=== PATIENT | female | born 1925 | race Caucasian/White ===

== ENCOUNTER 2016-03-27 11:03 | Inpatient (IN) | payer MEDICARE ==
[2016-03-27 11:43] LABS: HEMOGLOBIN 12.8 g/dL (12.0-15.5); HGB HCT DIFFERENCE -0.6; MEAN CORPUSCULAR HEMOGLOBIN 27.4 pg (27.0-33.4); MEAN CORPUSCULAR HGB CONC 32.8 g/dL (32.0-36.0); MEAN CORPUSCULAR VOLUME 84 fl (80-97); RED BLOOD COUNT 4.67 10^6/uL (3.72-5.28); RED CELL DISTRIBUTION WIDTH 15.4 % (11.5-14.0); WHITE BLOOD COUNT 16.9 10^3/uL (4.0-10.5)
[2016-03-27 11:46] LABS: PROTHROMBIN TIME 19.5 SEC (11.4-15.4)
[2016-03-27 11:51] LABS: APPEARANCE,URINE SLIGHTLY-CLOUDY; BILIRUBIN,URINE NEGATIVE (NEGATIVE); GLUCOSE, URINE NEGATIVE (NEGATIVE); KETONES,URINE NEGATIVE (NEGATIVE); LEUKOCYTE ESTERASE,URINE TRACE (NEGATIVE); NITRITE,URINE POSITIVE (NEGATIVE); PROTEIN,URINE 100 mg/dL (NEGATIVE); URINE SPECIFIC GRAVITY 1.008; UROBILINOGEN,URINE NEGATIVE mg/dL (<2.0)
[2016-03-27 11:52] LABS: ALANINE AMINOTRANSFERASE 44 U/L (9-52); ALBUMIN 3.5 g/dL (3.5-5.0); ALKALINE PHOSPHATASE 45 U/L (38-126); ANION GAP 15 (5-19); ASPARTATE AMINO TRANSFERASE 43 U/L (14-36); BILIRUBIN,TOTAL 0.7 mg/dL (0.2-1.3); BLOOD UREA NITROGEN 30 mg/dL (7-20); CALCIUM 8.5 mg/dL (8.4-10.2); CARBON DIOXIDE 27 mmol/L (22-30); CHLORIDE 98 mmol/L (98-107); GLUCOSE 181 mg/dL (75-110); POTASSIUM 3.5 mmol/L (3.6-5.0); SODIUM 140.2 mmol/L (137-145); TOTAL PROTEIN 7.2 g/dL (6.3-8.2)
[2016-03-27 12:14] LABS: BAND NEUTROPHILS % (MANUAL) 3 % (3-5); BASOPHILS % (MANUAL) 0 % (0-2); EOSINOPHILS % (MANUAL) 0 % (0-6); LYMPHOCYTES % (MANUAL) 1 % (13-45); TOTAL CELLS COUNTED 100
[2016-03-27 12:19] LABS: TOXIC VACUOLATION PRESENT
[2016-03-27 12:20] LABS: ANISOCYTOSIS SLIGHT; MICROCYTOSIS SLIGHT; POLYCHROMASIA SLIGHT; TOXIC GRANULATION SLIGHT
--- NOTE | 2016-03-27 12:26 | ER Document Report ---
[id number] TRAVEL OUTSIDE OF THE [place] IN LAST 30 DAYS: No - HPI Onset: Other - "Couple days ago" Associated symptoms: Other - See above <KIKA DISLA - Last Filed: 03/27/16 19:52> <CHELLY MCRAE - Last Filed: 04/11/16 23:46> - General Chief Complaint: Altered Mental Status Stated Complaint: ALTERED MENTAL Notes: 89-year-old female with history of 3L O2 dependent COPD, dementia, sleep apnea, pneumonia, A. fib(on Xarelto), and chronic back pain presents to the ED via EMS accompanied by her daughter who complains of the patient has been "sick" for the past "couple days." Daughter states that the patient is set up with assisted living and a home nurse comes to visit the patient. The nurse thought that the patient should go to the ED, however the patient states that she told the nurse that she did not want to come. Upon the examination, the daughter said that the patient looks diaphoretic. Patient denies falling, headache, any weight changes, chest pain, or shortness of breath. Daughter states that the patient gets the UTI 2-3 times a year. She also states that in 2013 the patient was admitted in [place] for a empyema. Patient's primary care provider is Dr. Capellan, outpatient program coordinator is Dr. Edwards, and pnemuologist is Dr. Barrow. (KIKA DISLA) - Related Data Allergies/Adverse Reactions: azithromycin [Azithromycin] Allergy (Verified 03/06/15 14:12) Home Medications: Current Home Medications Acetaminophen [Tylenol] 650 mg PO Q4HP PRN 03/27/16 [History] Albuterol Sulfate [Albuterol Sulfate 2.5mg/3 mL] 2.5 mg IH Q4HP PRN 03/27/16 [ History] Amiodarone HCl [Pacerone 100 mg Tablet] 100 mg PO QAM 03/27/16 [History] Amlodipine Besylate [Norvasc 5 mg Tablet] 5 mg PO DAILY 03/27/16 [History] Ascorbic Acid [Vitamin C 500 mg Tablet] 500 mg PO DAILY 03/27/16 [History] Cetirizine HCl [Zyrtec 10 mg Tablet] 10 mg PO DAILY 03/27/16 [History] Cholecalciferol (Vitamin D3) [Vitamin D3] 2,000 units PO DAILY 03/27/16 [History ] Digoxin [Digox] 125 mcg PO DAILY 03/27/16 [History] Fluticasone/Salmeterol [Advair 250-50 Diskus 14 Dose/Diskus] 1 puff IH Q12 03/27 [History] Guaifenesin/D-Methorphan Hb [Robitussin-Dm Syrup 10 ml Udcup] 10 ml PO Q4HP PRN 03/27/16 [History] Insulin Glargine,Hum.rec.anlog [Lantus Solostar] 10 units SQ QAM 03/27/16 [ History] Lisinopril [Prinivil 10 mg Tablet] 10 mg PO DAILY 03/27/16 [History] Metoprolol Succinate [Toprol Xl 50 mg Tab.sr] 50 mg PO DAILY 03/27/16 [History] Rivaroxaban [Xarelto 15 mg Tablet] 15 mg PO DAILY 03/27/16 [History] Sitagliptin Phos/Metformin HCl [Janumet Xr 100-1,000 mg Tablet] 1 each PO DAILY 03/27/16 [History] Tiotropium [place] [Spiriva Handihaler 5 Cap/Kit (18 Mcg/Cap)] 1 puff IH DAILY 03/27/16 [History] Torsemide [Demadex 20 mg Tablet] 20 mg PO DAILY 03/27/16 [History] Past Medical History - General Information source: Patient - Social History Smoking Status: Unknown if Ever Smoked Family History: Reviewed & Not Pertinent - Past Medical History Cardiac Medical History: Reports: Hx Atrial Fibrillation, Hx Congestive Heart Failure, Hx Hypercholesterolemia, Hx Hypertension Pulmonary Medical History: Reports: Hx Asthma, Hx Bronchitis, Hx COPD, Hx Pneumonia, Hx Sleep Apnea, Other - empyema in 2013 Endocrine Medical History: Reports: Hx Diabetes Mellitus Type 2 GI Medical History: Reports: Hx Gastroesophageal Reflux Disease Musculoskeltal Medical History: Reports Hx Arthritis Traumatic Medical History: Reports: Hx Fractures Past Surgical History: Reports: Hx Appendectomy, Hx Herniorrhaphy, Hx Hysterectomy, Hx Orthopedic Surgery - Immunizations Hx Diphtheria, Pertussis, Tetanus Vaccination: No Hx Pneumococcal Vaccination: 02/25/09 <KIKA DISLA - Last Filed: 03/27/16 19:52> Review of Systems - Review of Systems Constitutional: See HPI, Diaphoresis. denies: Weight gain, Weight loss EENT: No symptoms reported Cardiovascular: No symptoms reported. denies: Chest pain Respiratory: No symptoms reported. denies: Short of breath Gastrointestinal: No symptoms reported Genitourinary: No symptoms reported Female Genitourinary: No symptoms reported Musculoskeletal: No symptoms reported Skin: No symptoms reported Hematologic/Lymphatic: No symptoms reported Neurological/Psychological: No symptoms reported. denies: Headaches -: Yes All other systems reviewed and negative <KIKA DISLA - Last Filed: 03/27/16 19:52> Physical Exam - Vital signs Interpretation: Febrile - General General appearance: Alert In distress: None - HEENT Head: Normocephalic, Atraumatic Eyes: Normal Extraocular movements intact: Yes Pupils: PERRL - Respiratory Respiratory status: No respiratory distress Breath sounds: Rhonchi - Bilaterally. No: Normal, Wheezing - Cardiovascular Rhythm: Regular Heart sounds: Normal auscultation - Abdominal Inspection: Normal - Back Back: Normal - Extremities General upper extremity: Normal inspection, Normal ROM. No: Edema General lower extremity: Normal inspection, Normal ROM. No: Edema - Neurological Neuro grossly intact: Yes Cognition: Normal Orientation: AAOx4 Adrian Coma Scale Eye Opening: Spontaneous Adrian Coma Scale Verbal: Oriented Adrian Coma Scale Motor: Obeys Commands Adrian Coma Scale Total: 15 Speech: Normal - Psychological Associated symptoms: Normal affect, Normal mood - Skin Skin Temperature: Warm Skin Moisture: Dry Skin Color: Normal <KIKA DISLA - Last Filed: 03/27/16 19:52> Course - Laboratory Result Diagrams: 03/27/16 11:24 03/27/16 11:24 - Consults Colleen Totaling Time consulted: 13:30 <KIKA DISLA - Last Filed: 03/27/16 19:52> - Laboratory Result Diagrams: 04/05/16 06:04 04/05/16 06:04 <CHELLY MCRAE - Last Filed: 04/11/16 23:46> - Re-evaluation Re-evalutation: 03/27/16 13:33 I personally performed the services described in the documentation, reviewed and edited the documentation which was dictated to my scribe in my presence, and it accurately records my words and actions. Patient presents emergency department with altered mental status questionable urinary tract infection 91% on 2 L nasal cannula with a history of chronic COPD on 3 L nasal cannula at home. Going to the family she lives in assisted living independently but family members check in on her a dose and about mental status changes today. EMS gave her a gram of Tylenol for an elevated oral temperature rectally it's 103 here. On examination patient is a alert to self and place. Fever is improved after the Tylenol. On straight catheterization she has a slight urinary tract infection but has bilateral pneumonia on chest x-ray. Patient is given broad-spectrum IV antibiotics blood cultures lactic acid is normal at this point. Patient has allergies to some medications as well. Spoke with the hospitalist APC Colleen CASTRO who accepted the patient to the hospitalist service under Dr. mensah. Patient is stable currently no respiratory distress will be admitted to telemetry inpatient. 03/27/16 13:35 03/27/16 13:35 (CHELLY MCRAE) - Vital Signs Vital signs: Temp Pulse Resp BP Pulse Ox 97.2 F 56 L 18 131/52 H 92 04/05/16 07:22 04/05/16 07:22 04/05/16 07:22 04/05/16 07:22 04/05/16 07:22 (KIKA DISLA) (CHELLY MCRAE) - Laboratory Laboratory results interpreted by nc: 03/27/16 03/27/16 03/27/16 11:24 11:24 11:24 WBC 16.9 H RDW 15.4 H Seg Neuts % (Manual) 79 H Lymphocytes % (Manual) 1 L Monocytes % (Manual) 14 H Metamyelocytes % 1 H Abs Neuts (Manual) 14.0 H Abs Monocytes (Manual) 2.4 H PT 19.5 H Potassium 3.5 L BUN 30 H Est GFR (Non-Af Amer) 52 L Glucose 181 H POC Glucose AST 43 H Urine Protein Urine Blood Urine Nitrite Ur Leukocyte Esterase 03/27/16 03/27/16 11:31 11:34 WBC RDW Seg Neuts % (Manual) Lymphocytes % (Manual) Monocytes % (Manual) Metamyelocytes % Abs Neuts (Manual) Abs Monocytes (Manual) PT Potassium BUN Est GFR (Non-Af Amer) Glucose POC Glucose 194 H AST Urine Protein 100 H Urine Blood SMALL H Urine Nitrite POSITIVE H Ur Leukocyte Esterase TRACE H (KIKA DISLA) (CHELLY MCRAE) - EKG Interpretation by Me Additional EKG results interpreted by me: 03/27/16 13:35 EKG interpreted by myself with a sinus rhythm at [address] segment elevation or depression (CHELLY MCRAE) - Consults Colleen Beck Reason for consultation: 03/27/16 13:30 Patient was discussed with Colleen Beck and accepts the patient on behalf of Dr. Jose. (KIKA DISLA) Critical Care Note - Critical Care Note Total time excluding time spent on procedures (mins): 45 <CHELLY MCRAE - Last Filed: 04/11/16 23:46> Discharge <KIKA DISLA - Last Filed: 03/27/16 19:52> - Discharge Admitting Provider: Hospitalist Unit Admitted: Telemetry <CHELLY MCRAE - Last Filed: 04/11/16 23:46> - Discharge Clinical Impression: acute bilateral pneumonia, Acute UTI Condition: Stable Disposition: HOME-ASSISTED LIVING Scribe Documentation - Scribe Written by Scribe:: Chetan Ferraro, 03/27/2016, 13:54 acting as scribe for :: Obie <KIKA DISLA - Last Filed: 03/27/16 19:52>
[2016-03-27] MEDS ORDERED: CEFTRIAXONE INJ 1000 MG VIAL IV ONE (12:29)
[2016-03-27] MEDS ORDERED: VANCOMYCIN HCL INJ 1000 MG VIAL IV ONE (12:31)
[2016-03-27] MEDS ORDERED: NORMAL SALINE 1000 ML 500 ML IV ONE (12:32)
[2016-03-27] MEDS ORDERED: MAGNESIUM HYDROXIDE SUSP 30 ML UDCUP PO PRN (13:38)
[2016-03-27] MEDS ORDERED: ONDANSETRON HCL INJ/PF 4 MG/2 ML SDV IV PRN (13:38)
[2016-03-27] MEDS ORDERED: HEPARIN SOD (PORCINE) 5,000 UNIT/ML 1 ML SYRINGE SUBCUT SCH (14:00)
[2016-03-27] MEDS ORDERED: DEXTROSE 40% GEL 15 GM TUBE PO PRN ×2 (14:40)
[2016-03-27] MEDS ORDERED: DEXTROSE 50%-WATER 25 GM/50 ML DISP.SYRIN IV PRN ×2 (14:40)
[2016-03-27] MEDS ORDERED: GLUCAGON,HUMAN RECOMB 1 MG INJ IM PRN (14:40)
--- NOTE | 2016-03-27 14:42 | PDOC H&P ---
History of Present Illness Admission Date/PCP: 03/27/16 14:09 MYRIAM OCHOA MD Patient complains of: Altered mental status, fever History of Present Illness: FAUSTINO SHARIF is a 89 year old female who is a resident of [facility]. She was noted to be confused and febrile by family. She was evaluated by nursing and referred to [facility] ER. The ER she was found to have a rectal temperature of 103.2. She has been pancultured, and started on IV broad-spectrum antibiotics. She was found to be mildly hypotensive, and tachycardic. She was given IV fluid bolus. Blood pressure and heart rate have both improved. She is presently awake, alert, and oriented. She is complain also of some severe sore throat, and mildly congested cough. She states the symptoms having been ongoing for last 3 days. She denies any other complaints at the present time. She was found to have positive nitrates in her urinalysis. Her daughter states she does have a history of frequent urinary tract infections. Her daughter, is at bedside. She is patient's medical power of senior trial attorney. She states that patient does have a written out of hospital DO NOT RESUSCITATE order. Past Medical History Cardiac Medical History: Reports: Atrial Fibrillation, Congestive Heart Failure , Hyperlipidema, Hypertension Pulmonary Medical History: Reports: Asthma, Bronchitis, Chronic Obstructive Pulmonary Disease (COPD), Pneumonia, Sleep Apnea, Other - empyema in 2013 EENT Medical History: Reports: None Neurological Medical History: Reports: None Endocrine Medical History: Reports: Diabetes Mellitus Type 2 Renal/ Medical History: Reports: None Malignancy Medical History: Reports: None GI Medical History: Reports: Gastroesophageal Reflux Disease Musculoskeltal Medical History: Reports: Arthritis Psychiatric Medical History: Reports: None Traumatic Medical History: Reports: None Hematology: Denies: Anemia, Hemophilia, Sickle Cell Disease Infectious Medical History: Reports: None Past Surgical History Past Surgical History: Reports: Appendectomy, Herniorrhaphy, Hysterectomy, Orthopedic Surgery Denies: Amputation Social History Information Source: Patient, Relative, POA - 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 Lives with: Senior Living Smoking Status: Former Smoker Number of Years Smokin Frequency of Alcohol Use: None Hx Recreational Drug Use: No Hx Prescription Drug Abuse: No - Advance Directive Resuscitation Status: Do Not Resuscitate Family History Family History: Hyperlipidemia, Hypertension Parental Family History Reviewed: Yes Children Family History Reviewed: Yes Sibling(s) Family History Reviewed.: Yes Medication/Allergy Home Medications: Acetaminophen [Tylenol] 650 mg PO Q4H PRN 11/28/14 Albuterol Sulfate [Albuterol Sulfate 2.5mg/3 mL] 1 vial IH Q6H PRN 11/28/14 Amiodarone HCl 100 mg PO DAILY 11/28/14 Ascorbic Acid [Vitamin C 500 mg Tablet] 500 mg PO DAILY 11/28/14 Cetirizine HCl [Zyrtec 10 mg Tablet] 1 tab PO QHS 11/28/14 Digoxin [Digox] 125 mcg PO DAILY 11/28/14 Fluticasone/Salmeterol [Advair 250-50 Diskus 14 Dose/Diskus] 1 puff IH BID 11/28 Lisinopril 10 mg PO DAILY 11/28/14 Metoprolol Succinate 50 mg PO DAILY 11/28/14 Polyethylene Glycol 3350 [Miralax Powder 17 gm/Packet] 1 packet PO DAILY Tiotropium [place] [Spiriva Handihaler 18 mcg/dose (30 Dose)] 1 cap IH DAILY 06/09 Torsemide [Demadex 10 mg Tablet] 10 mg PO DAILY 11/28/14 Amlodipine Besylate [Norvasc 5 mg Tablet] 5 mg PO DAILY 03/06/15 Hypromellose [Genteal] 1 applic OP QHS PRN 03/06/15 Rivaroxaban [Xarelto 15 mg Tablet] 15 mg PO DAILY 03/06/15 Sitagliptin Phos/Metformin HCl [Janumet Xr 100-1,000 mg Tablet] 1 each PO DAILY 03/06/15 Starch [Anusol] 1 each RC ASDIR PRN 03/06/15 Cholecalciferol (Vitamin D3) [Vitamin D3 2000 unit Tablet] 2,000 unit PO DAILY 10/03/15 Insulin Glargine,Hum.rec.anlog [Lantus] 10 unit SQ DAILY 10/03/15 Doxycycline Hyclate 100 mg PO BID #9 capsule 10/06/15 Allergies/Adverse Reactions: azithromycin [Azithromycin] Allergy (Verified 03/06/15 14:12) Review of Systems Constitutional: PRESENT: chills, fever(s) Eyes: ABSENT: visual disturbances Nose, Mouth, and Throat: PRESENT: mouth pain, sore throat Cardiovascular: ABSENT: chest pain, dyspnea on exertion, edema, orthropnea, palpitations Respiratory: PRESENT: cough, sputum Gastrointestinal: ABSENT: abdominal pain, constipation, diarrhea, hematemesis, hematochezia, nausea, vomiting Genitourinary: PRESENT: dysuria Musculoskeletal: ABSENT: joint swelling Integumentary: ABSENT: rash, wounds Neurological: ABSENT: abnormal gait, abnormal speech, confusion, dizziness, focal weakness, syncope Psychiatric: PRESENT: as per HPI Endocrine: ABSENT: cold intolerance, heat intolerance, polydipsia, polyuria Hematologic/Lymphatic: ABSENT: easy bleeding, easy bruising Physical Exam Vital Signs: Temp Pulse Resp BP Pulse Ox 103.5 F H 23 H 100/44 L 91 L 03/27/16 11:43 03/27/16 14:01 03/27/16 14:01 03/27/16 14:01 General appearance: PRESENT: no acute distress, obese Head exam: PRESENT: atraumatic, normocephalic Eye exam: PRESENT: conjunctiva pink, EOMI, PERRLA. ABSENT: scleral icterus Ear exam: PRESENT: normal external ear exam Mouth exam: PRESENT: moist, tongue midline Neck exam: ABSENT: carotid bruit, JVD, lymphadenopathy, thyromegaly Respiratory exam: PRESENT: decreased breath sounds, rhonchi, symmetrical, unlabored Cardiovascular exam: PRESENT: RRR. ABSENT: diastolic murmur, rubs, systolic murmur Pulses: PRESENT: normal dorsalis pedis pul Vascular exam: PRESENT: normal capillary refill GI/Abdominal exam: PRESENT: normal bowel sounds, soft. ABSENT: distended, guarding, mass, organolmegaly, rebound, tenderness Rectal exam: PRESENT: deferred Extremities exam: PRESENT: full ROM. ABSENT: calf tenderness, clubbing, pedal edema Neurological exam: PRESENT: alert, awake, oriented to person, oriented to place , CN II-XII grossly intact. ABSENT: motor sensory deficit Psychiatric exam: PRESENT: appropriate affect, normal mood Skin exam: PRESENT: dry, intact, warm. ABSENT: cyanosis, rash Results Impressions: Chest X-Ray 03/27/16 00:00 IMPRESSION: Patchy bibasilar infiltrate/atelectatic markings. Assessment & Plan - Diagnosis (1) Altered mental status Qualifiers: Altered mental status type: disorientation Qualified Code(s): R41.0 - Disorientation, unspecified Is this a current diagnosis for this admission?: YesPlan: Most likely secondary to UTI, possible pneumonia, and dehyrdation (2) Acute UTI Is this a current diagnosis for this admission?: YesPlan: Will obtain urine culture and blood cultures. Cover with empiric broad spectrum (3) Pneumonia Qualifiers: Pneumonia type: due to unspecified organism Laterality: bilateral Lung location: lower lobe of lung Qualified Code(s): J18.9 - Pneumonia, unspecified organism Is this a current diagnosis for this admission?: Yes (4) COPD (chronic obstructive pulmonary disease) Qualifiers: Emphysema type: unspecified Is this a current diagnosis for this admission?: YesPlan: Continue inhalers, prn, nebulizer, treatments (5) Paroxysmal a-fib Is this a current diagnosis for this admission?: YesPlan: Presently sinus rhythm on amiodarone and xarelto (6) Essential (primary) hypertension Is this a current diagnosis for this admission?: YesPlan: Presently borderline hypotensive will hold medications and monitor. (7) DMII (diabetes mellitus, type 2) Qualifiers: Diabetes mellitus complication status: without complication Diabetes mellitus jail insulin use: with jail use Qualified Code(s): E11.9 - Type 2 diabetes mellitus without complications; Z79.4 - long term care administrator ( current) use of insulin Is this a current diagnosis for this admission?: YesPlan: Continue current medications and sliding scale coverage (8) DVT prophylaxis Is this a current diagnosis for this admission?: YesPlan: On Xarelto - Time Time Spent: 50 to 70 Minutes Critical Time spent with patient: 25-34 minutes Medications reviewed and adjusted accordingly: Yes Anticipated discharge: SNF - Inpatient Certification Based on my medical assessment, after consideration of the patient's comorbidities, presenting symptoms, or acuity I expect that the services needed warrant INPATIENT care.: Yes I certify that my determination is in accordance with my understanding of Medicare's requirements for reasonable and necessary INPATIENT services [42 CFR 412.3e].: Yes Medical Necessity: Need For IV Fluids, Need for IV Antibiotics, Risk of Complication if Not Cared For in Hospital
[2016-03-27] MEDS ORDERED: AMIODARONE HCL 200 MG TABLET PO ONE (15:30)
[2016-03-27 15:53] LABS: VENOUS BLOOD BASE EXCESS -0.8 mmol/L; VENOUS BLOOD HCO3 26.1 mmol/L (20-32); VENOUS BLOOD PCO2 52.4 mmHg (35-63); VENOUS BLOOD PH 7.32 (7.30-7.42)
[2016-03-27] MEDS: DOCUSATE SODIUM 100 MG CAPSULE PO SCH (17:35)
[2016-03-27] MEDS: PIPERACILLIN SODIUM/TAZOBACTAM 3.375 GM in NORMAL SALINE 100 ML IV SCH (17:53)
[2016-03-27] MEDS: NORMAL SALINE 1000 ML 1,000 ML IV PRN (17:54)
[2016-03-27] MEDS: INSULIN LISPRO 100 UNIT/ML 3 ML VIAL SUBCUT PRN (17:55)
[2016-03-27] MEDS: FLUTICASONE/SALMETEROL DISKUS 250-50 MCG/DOSE IH SCH (17:57)
[2016-03-27] MEDS: ACETAMINOPHEN 325 MG TABLET PO PRN (20:45)
[2016-03-27] MEDS ORDERED: RIVAROXABAN 15 MG TABLET PO ONE (21:11)
[2016-03-27] MEDS ORDERED: PIPERACILLIN/TAZOBACTAM 3.375 GM VIAL IV ONE (23:36)
[2016-03-28] MEDS ORDERED: NORMAL SALINE 1000 ML 1,000 ML IV ONE (01:00)
[2016-03-28] MEDS: PIPERACILLIN SODIUM/TAZOBACTAM 3.375 GM in NORMAL SALINE 100 ML IV SCH ×4 (01:50→17:25)
[2016-03-28] MEDS: IPRATROPIUM/ALBUTEROL 0.5-2.5 MG/3 ML AMPUL NEB PRN ×2 (01:55→10:21)
[2016-03-28 04:45] LABS: ABSOLUTE BASOPHILS # (AUTO) 0.1 10^3/uL (0.0-0.2); ABSOLUTE LYMPHOCYTES (AUTO) 1.1 10^3/uL (0.5-4.7); ABSOLUTE NEUT (AUTO) 14.9 10^3/uL (1.7-8.2); BASOPHILS % (AUTO) 0.8 % (0-2); HEMOGLOBIN 12.8 g/dL (12.0-15.5); HGB HCT DIFFERENCE -1.6; LYMPHOCYTES % (AUTO) 5.9 % (13-45); MEAN CORPUSCULAR HEMOGLOBIN 27.4 pg (27.0-33.4); MEAN CORPUSCULAR VOLUME 86 fl (80-97); RED BLOOD COUNT 4.67 10^6/uL (3.72-5.28); RED CELL DISTRIBUTION WIDTH 15.9 % (11.5-14.0); SEGMENTED NEUTROPHILS % (AUTO) 82.3 % (42-78)
[2016-03-28 05:11] LABS: ANION GAP 17 (5-19); BLOOD UREA NITROGEN 33 mg/dL (7-20); CARBON DIOXIDE 25 mmol/L (22-30); CHLORIDE 103 mmol/L (98-107); CREATININE RESULT 1.14 mg/dL (0.52-1.25); GLUCOSE 141 mg/dL (75-110); MAGNESIUM 1.7 mg/dL (1.6-2.3); POTASSIUM 3.5 mmol/L (3.6-5.0); SODIUM 144.5 mmol/L (137-145)
[2016-03-28] MEDS ORDERED: PIPERACILLIN/TAZOBACTAM 3.375 GM VIAL IV ONE (06:09)
--- NOTE | 2016-03-28 09:24 | EKG REPORT ---
SEVERITY:- ABNORMAL ECG - SINUS RHYTHM REPOL ABNRM SUGGESTS ISCHEMIA, DIFFUSE LEADS : Confirmed by: Karissa Hough 28-Mar-2016 09:23:42
[2016-03-28] MEDS ORDERED: RIVAROXABAN 15 MG TABLET PO SCH (10:00)
[2016-03-28] MEDS: INSULIN GLARGINE,HUM.REC.ANLOG 300 UNIT/3 ML INSULN.PEN SUBCUT SCH (10:21)
[2016-03-28] MEDS: DIGOXIN 0.125 MG TABLET PO SCH (10:25)
[2016-03-28] MEDS: AMIODARONE HCL 200 MG TABLET PO SCH (10:26)
[2016-03-28] MEDS: CHOLECALCIFEROL (D3) 1,000 UNIT TABLET PO SCH (10:26)
[2016-03-28] MEDS: FLUTICASONE/SALMETEROL DISKUS 250-50 MCG/DOSE IH SCH ×2 (10:27→17:25)
[2016-03-28] MEDS: TIOTROPIUM BROMIDE DPI 5 CAP/KIT (18 MCG/CAP) IH SCH (10:27)
[2016-03-28] MEDS: DOCUSATE SODIUM 100 MG CAPSULE PO SCH ×2 (10:33→17:15)
[2016-03-28] MEDS: METOPROLOL SUCCINATE 50 MG TAB.SR.24H PO SCH (10:33)
[2016-03-28] MEDS: IPRATROPIUM/ALBUTEROL 0.5-2.5 MG/3 ML AMPUL NEB SCH ×2 (14:06→20:23)
[2016-03-28] MEDS: INSULIN LISPRO 100 UNIT/ML 3 ML VIAL SUBCUT PRN ×2 (17:21→21:26)
[2016-03-28] MEDS: SITAGLIPTIN PHOSPHATE 50 MG TABLET PO SCH (17:24)
[2016-03-28] MEDS: METFORMIN HCL 500 MG TABLET PO SCH (17:24)
[2016-03-28] MEDS: GUAIFENESIN 600 MG TABLET.SA PO SCH (20:57)
[2016-03-28] MEDS: RIVAROXABAN 15 MG TABLET PO SCH (20:58)
[2016-03-28] MEDS: ACETAMINOPHEN 325 MG TABLET PO PRN (21:26)
[2016-03-28] MEDS: NORMAL SALINE 1000 ML 1,000 ML IV PRN (21:27)
[2016-03-29] MEDS: PIPERACILLIN SODIUM/TAZOBACTAM 3.375 GM in NORMAL SALINE 100 ML IV SCH ×4 (00:58→17:14)
[2016-03-29 05:03] LABS: ABSOLUTE LYMPHOCYTES (AUTO) 0.9 10^3/uL (0.5-4.7); ABSOLUTE MONOCYTES (AUTO) 1.3 10^3/uL (0.1-1.4); ABSOLUTE NEUT (AUTO) 8.1 10^3/uL (1.7-8.2); BASOPHILS % (AUTO) 0.3 % (0-2); EOSINOPHILS % (AUTO) 0.3 % (0-6); HEMATOCRIT 34.5 % (36.0-47.0); HEMOGLOBIN 11.2 g/dL (12.0-15.5); HGB HCT DIFFERENCE -0.9; LYMPHOCYTES % (AUTO) 8.7 % (13-45); MEAN CORPUSCULAR HEMOGLOBIN 27.5 pg (27.0-33.4); MEAN CORPUSCULAR HGB CONC 32.6 g/dL (32.0-36.0); MEAN CORPUSCULAR VOLUME 84 fl (80-97); MONOCYTES % (AUTO) 12.5 % (3-13); RED BLOOD COUNT 4.09 10^6/uL (3.72-5.28); RED CELL DISTRIBUTION WIDTH 15.4 % (11.5-14.0); SEGMENTED NEUTROPHILS % (AUTO) 78.2 % (42-78); WHITE BLOOD COUNT 10.4 10^3/uL (4.0-10.5)
[2016-03-29 05:19] LABS: ANION GAP 13 (5-19); BLOOD UREA NITROGEN 25 mg/dL (7-20); CALCIUM 7.8 mg/dL (8.4-10.2); CARBON DIOXIDE 24 mmol/L (22-30); CHLORIDE 106 mmol/L (98-107); CREATININE RESULT 0.97 mg/dL (0.52-1.25); GLUCOSE 89 mg/dL (75-110); POTASSIUM 3.3 mmol/L (3.6-5.0)
[2016-03-29] MEDS: NORMAL SALINE 1000 ML 1,000 ML IV PRN (08:20)
[2016-03-29] MEDS ORDERED: POTASSIUM CHLORIDE 10 MEQ TABLET.SA PO ONE (08:45)
[2016-03-29] MEDS: IPRATROPIUM/ALBUTEROL 0.5-2.5 MG/3 ML AMPUL NEB SCH ×3 (08:58→19:41)
[2016-03-29] MEDS: INSULIN GLARGINE,HUM.REC.ANLOG 300 UNIT/3 ML INSULN.PEN SUBCUT SCH (09:23)
[2016-03-29] MEDS: ACETAMINOPHEN 325 MG TABLET PO PRN ×2 (09:25→19:39)
[2016-03-29] MEDS: SITAGLIPTIN PHOSPHATE 50 MG TABLET PO SCH ×2 (09:26→17:14)
[2016-03-29] MEDS: CHOLECALCIFEROL (D3) 1,000 UNIT TABLET PO SCH (09:26)
[2016-03-29] MEDS: DIGOXIN 0.125 MG TABLET PO SCH (09:26)
[2016-03-29] MEDS: METOPROLOL SUCCINATE 50 MG TAB.SR.24H PO SCH (09:27)
[2016-03-29] MEDS: AMIODARONE HCL 200 MG TABLET PO SCH (09:27)
[2016-03-29] MEDS: GUAIFENESIN 600 MG TABLET.SA PO SCH ×2 (09:28→22:23)
[2016-03-29] MEDS: METFORMIN HCL 500 MG TABLET PO SCH ×2 (09:28→17:14)
[2016-03-29] MEDS: TORSEMIDE 20 MG TABLET PO SCH (09:29)
[2016-03-29] MEDS: TIOTROPIUM BROMIDE DPI 5 CAP/KIT (18 MCG/CAP) IH SCH (09:29)
[2016-03-29] MEDS: FLUTICASONE/SALMETEROL DISKUS 250-50 MCG/DOSE IH SCH ×3 (09:29→22:23)
[2016-03-29] MEDS: DOCUSATE SODIUM 100 MG CAPSULE PO SCH ×2 (09:30→17:11)
[2016-03-29] MEDS: CETIRIZINE 10 MG TABLET PO SCH (09:47)
[2016-03-29] MEDS ORDERED: GUAIFENESIN/CODEINE PHOS 100-10 MG/ 5 ML UDC PO PRN (09:48)
[2016-03-29] MEDS ORDERED: DIGOXIN 0.125 MG TABLET PO SCH (10:00)
[2016-03-29] MEDS ORDERED: (PENDING PHARMACY ID) (Sitagliptin Phos/Metformin Hcl [Janumet Xr 100-1,000 Mg Tablet] 1 E PO SCH (10:00)
--- NOTE | 2016-03-29 11:11 | PDOC PROGRESS REPORT ---
Subjective Progress Note for:: 03/28/16 Subjective:: Patient is seen on morning rounds. She is sitting out of bed in bedside chair eating breakfast. Her daughter is at the bedside. She states her cough is somewhat better this morning. She is now coughing and producing thick green sputum. She is no longer confused. She denies dyspnea, chest pain or dizziness. She denies nausea, vomiting, abdominal pain or diarrhea. She denies dysuria. She denies any back pain or musculoskeletal pain. Rest of review of systems are negative. Physical Exam Vital Signs: Temp Pulse Resp BP Pulse Ox 98.2 F 72 18 158/60 H 95 03/29/16 07:48 03/29/16 08:58 03/29/16 08:58 03/29/16 07:48 03/29/16 08:58 Intake & Output 03/28/16 03/29/16 03/30/16 06:59 06:59 06:59 Intake Total 1621 4783 Output Total 200 350 Balance 1421 4433 Weight 92.7 kg 93 kg General appearance: PRESENT: no acute distress, well-developed, well-nourished Head exam: PRESENT: atraumatic, normocephalic Eye exam: PRESENT: conjunctiva pink, EOMI, PERRLA. ABSENT: scleral icterus Ear exam: PRESENT: normal external ear exam Mouth exam: PRESENT: moist, tongue midline Neck exam: ABSENT: carotid bruit, JVD, lymphadenopathy, thyromegaly Respiratory exam: PRESENT: crackles, symmetrical, unlabored - right base Cardiovascular exam: PRESENT: RRR. ABSENT: diastolic murmur, rubs, systolic murmur Pulses: PRESENT: normal dorsalis pedis pul Vascular exam: PRESENT: normal capillary refill GI/Abdominal exam: PRESENT: normal bowel sounds, soft. ABSENT: distended, guarding, mass, organolmegaly, rebound, tenderness Rectal exam: PRESENT: deferred Extremities exam: PRESENT: full ROM. ABSENT: calf tenderness, clubbing, pedal edema Musculoskeletal exam: PRESENT: full ROM, normal inspection Neurological exam: PRESENT: alert, awake, oriented to person, oriented to place , oriented to time, oriented to situation, CN II-XII grossly intact. ABSENT: motor sensory deficit Psychiatric exam: PRESENT: appropriate affect, normal mood. ABSENT: homicidal ideation, suicidal ideation Skin exam: PRESENT: dry, intact, warm. ABSENT: cyanosis, rash Results Laboratory Results: 03/29/16 04:28 03/29/16 04:28 03/29/16 03/29/16 04:28 04:28 WBC 10.4 RBC 4.09 Hgb 11.2 L Hct 34.5 L MCV 84 MCH 27.5 MCHC 32.6 RDW 15.4 H Plt Count 143 L Seg Neutrophils % 78.2 H Lymphocytes % 8.7 L Monocytes % 12.5 Eosinophils % 0.3 Basophils % 0.3 Absolute Neutrophils 8.1 Absolute Lymphocytes 0.9 Absolute Monocytes 1.3 Absolute Eosinophils 0.0 Absolute Basophils 0.0 Sodium 143.0 Potassium 3.3 L Chloride 106 Carbon Dioxide 24 Anion Gap 13 BUN 25 H Creatinine 0.97 Est GFR ( Amer) > 60 Est GFR (Non-Af Amer) 54 L Glucose 89 Calcium 7.8 L Impressions: Chest X-Ray 03/27/16 00:00 IMPRESSION: Patchy bibasilar infiltrate/atelectatic markings. Assessment & Plan - Diagnosis (1) Altered mental status Qualifiers: Altered mental status type: disorientation Qualified Code(s): R41.0 - Disorientation, unspecified Is this a current diagnosis for this admission?: YesPlan: Most likely secondary to UTI, possible pneumonia, and dehyrdation (2) Acute UTI Is this a current diagnosis for this admission?: YesPlan: Will obtain urine culture and blood cultures. Cover with empiric broad spectrum (3) Pneumonia Qualifiers: Pneumonia type: due to unspecified organism Laterality: bilateral Lung location: lower lobe of lung Qualified Code(s): J18.9 - Pneumonia, unspecified organism Is this a current diagnosis for this admission?: Yes (4) COPD (chronic obstructive pulmonary disease) Qualifiers: Emphysema type: unspecified Is this a current diagnosis for this admission?: YesPlan: Continue inhalers, prn, nebulizer, treatments (5) Paroxysmal a-fib Is this a current diagnosis for this admission?: YesPlan: Presently sinus rhythm on amiodarone and xarelto (6) Essential (primary) hypertension Is this a current diagnosis for this admission?: YesPlan: Presently borderline hypotensive will hold medications and monitor. 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 Patient received 1 liters of IV normal saline overnight due to borderline hypotension. Normotensive today, will continue gentle rehydration today, BUN/Cr towards normal. Hold torsemide for today - Time Time Spent with patient: 25-34 minutes Critical Time spent with patient: 15-24 minutes Medications reviewed and adjusted accordingly: Yes Anticipated discharge: SNF
--- NOTE | 2016-03-29 11:25 | PDOC PROGRESS REPORT ---
Subjective Progress Note for:: 03/29/16 Subjective:: Patient is seen on morning rounds. She is sitting on the side of bed. Her daughter is at the bedside. She states her cough was somewhat worse overnight. She is now coughing and producing thick green sputum. She complains of mild left rib pain due to coughing. She denies dyspnea, chest pain or dizziness. She denies nausea, vomiting, abdominal pain or diarrhea. She denies dysuria. She denies any back pain or musculoskeletal pain. Rest of review of systems are negative. Physical Exam Vital Signs: Temp Pulse Resp BP Pulse Ox 98.2 F 72 18 158/60 H 95 03/29/16 07:48 03/29/16 08:58 03/29/16 08:58 03/29/16 07:48 03/29/16 08:58 Intake & Output 03/28/16 03/29/16 03/30/16 06:59 06:59 06:59 Intake Total 1621 4783 Output Total 200 350 Balance 1421 4433 Weight 92.7 kg 93 kg General appearance: PRESENT: no acute distress, obese, well-developed, well- nourished Head exam: PRESENT: atraumatic, normocephalic Eye exam: PRESENT: conjunctiva pink, EOMI, PERRLA. ABSENT: scleral icterus Ear exam: PRESENT: normal external ear exam Mouth exam: PRESENT: moist, tongue midline Neck exam: ABSENT: carotid bruit, JVD, lymphadenopathy, thyromegaly Respiratory exam: PRESENT: decreased breath sounds - right base. ABSENT: rales , rhonchi, wheezes Cardiovascular exam: PRESENT: RRR. ABSENT: diastolic murmur, rubs, systolic murmur Vascular exam: PRESENT: normal capillary refill GI/Abdominal exam: PRESENT: normal bowel sounds, soft. ABSENT: distended, guarding, mass, organolmegaly, rebound, tenderness Rectal exam: PRESENT: deferred Extremities exam: PRESENT: full ROM. ABSENT: calf tenderness, clubbing, pedal edema Neurological exam: PRESENT: alert, awake, oriented to person, oriented to place , oriented to time, oriented to situation, CN II-XII grossly intact. ABSENT: motor sensory deficit Psychiatric exam: PRESENT: appropriate affect, normal mood. ABSENT: homicidal ideation, suicidal ideation Skin exam: PRESENT: dry, intact, warm. ABSENT: cyanosis, rash Results Laboratory Results: 03/29/16 04:28 03/29/16 04:28 03/29/16 03/29/16 04:28 04:28 WBC 10.4 RBC 4.09 Hgb 11.2 L Hct 34.5 L MCV 84 MCH 27.5 MCHC 32.6 RDW 15.4 H Plt Count 143 L Seg Neutrophils % 78.2 H Lymphocytes % 8.7 L Monocytes % 12.5 Eosinophils % 0.3 Basophils % 0.3 Absolute Neutrophils 8.1 Absolute Lymphocytes 0.9 Absolute Monocytes 1.3 Absolute Eosinophils 0.0 Absolute Basophils 0.0 Sodium 143.0 Potassium 3.3 L Chloride 106 Carbon Dioxide 24 Anion Gap 13 BUN 25 H Creatinine 0.97 Est GFR ( Amer) > 60 Est GFR (Non-Af Amer) 54 L Glucose 89 Calcium 7.8 L Impressions: Chest X-Ray 03/27/16 00:00 IMPRESSION: Patchy bibasilar infiltrate/atelectatic markings. Assessment & Plan - Diagnosis (1) Altered mental status Qualifiers: Altered mental status type: disorientation Qualified Code(s): R41.0 - Disorientation, unspecified Is this a current diagnosis for this admission?: YesPlan: Most likely secondary to UTI, possible pneumonia, and dehyrdation. This has resolved to baseline (2) Acute UTI Is this a current diagnosis for this admission?: YesPlan: Will obtain urine culture and blood cultures. Cover with empiric broad spectrum (3) Pneumonia Qualifiers: Pneumonia type: due to unspecified organism Laterality: bilateral Lung location: lower lobe of lung Qualified Code(s): J18.9 - Pneumonia, unspecified organism Is this a current diagnosis for this admission?: YesPlan: Continue IV antibiotics for one more day. Sputum culture shows H influenzae.Patient is afebrile, normotensive, saturating at 96% on 2l/min (4) COPD (chronic obstructive pulmonary disease) Qualifiers: Emphysema type: unspecified Is this a current diagnosis for this admission?: YesPlan: Continue inhalers, prn, nebulizer, treatments (5) Paroxysmal a-fib Is this a current diagnosis for this admission?: YesPlan: Presently sinus rhythm on amiodarone and xarelto (6) Essential (primary) hypertension Is this a current diagnosis for this admission?: YesPlan: Presently borderline hypotensive will hold medications and monitor. 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 Patient received 1 liters of IV normal saline overnight due to borderline hypotension. Normotensive today, will continue gentle rehydration today, BUN/Cr towards normal. Hold torsemide for today - Time Time Spent with patient: 25-34 minutes Critical Time spent with patient: 15-24 minutes Medications reviewed and adjusted accordingly: Yes Anticipated discharge: SNF
[2016-03-29] MEDS ORDERED: GUAIFENESIN SYRP 200 MG/10 ML UDC PO PRN (12:24)
[2016-03-29] MEDS: INSULIN LISPRO 100 UNIT/ML 3 ML VIAL SUBCUT PRN (12:25)
[2016-03-29] MEDS: AMLODIPINE BESYLATE 5 MG TABLET PO SCH (12:28)
[2016-03-29] MEDS: RIVAROXABAN 15 MG TABLET PO SCH (22:23)
[2016-03-30] MEDS: PIPERACILLIN SODIUM/TAZOBACTAM 3.375 GM in NORMAL SALINE 100 ML IV SCH ×4 (00:35→17:35)
[2016-03-30] MEDS: ACETAMINOPHEN 325 MG TABLET PO PRN (03:05)
[2016-03-30] MEDS: IPRATROPIUM/ALBUTEROL 0.5-2.5 MG/3 ML AMPUL NEB PRN ×2 (04:06→21:28)
[2016-03-30 05:15] LABS: ARTERIAL BLOOD BASE EXCESS -7.1 mmol/L; ARTERIAL BLOOD O2 SATURATION 91.2 % (94-98)
[2016-03-30] MEDS ORDERED: FUROSEMIDE INJ/PF 40 MG/4 ML SDV ONE (05:16)
[2016-03-30 07:11] LABS: HEMATOCRIT 37.4 % (36.0-47.0); HGB HCT DIFFERENCE -1.4; MEAN CORPUSCULAR HEMOGLOBIN 27.3 pg (27.0-33.4); MEAN CORPUSCULAR HGB CONC 32.2 g/dL (32.0-36.0); MEAN CORPUSCULAR VOLUME 85 fl (80-97); RED BLOOD COUNT 4.41 10^6/uL (3.72-5.28); WHITE BLOOD COUNT 11.1 10^3/uL (4.0-10.5)
[2016-03-30 07:21] LABS: ANION GAP 12 (5-19); BLOOD UREA NITROGEN 23 mg/dL (7-20); CALCIUM 8.2 mg/dL (8.4-10.2); CARBON DIOXIDE 25 mmol/L (22-30); CHLORIDE 110 mmol/L (98-107); CREATININE RESULT 0.92 mg/dL (0.52-1.25); GLUCOSE 158 mg/dL (75-110); SODIUM 147.1 mmol/L (137-145)
[2016-03-30] MEDS ORDERED: FUROSEMIDE INJ/PF 40 MG/4 ML SDV IV ONE (07:22)
[2016-03-30] MEDS ORDERED: VANCOMYCIN HCL 0 MG in DEXTROSE 5%-WATER 250 ML IV NR (07:30)
[2016-03-30 07:34] LABS: BASOPHILS % (MANUAL) 0 % (0-2); EOSINOPHILS % (MANUAL) 0 % (0-6); LYMPHOCYTES % (MANUAL) 2 % (13-45); TOTAL CELLS COUNTED 100
[2016-03-30 07:36] LABS: ANISOCYTOSIS SLIGHT; TOXIC GRANULATION SLIGHT
[2016-03-30] MEDS ORDERED: (PENDING PHARMACY ID) (Amiodarone Hcl [Pacerone 100 Mg Tablet] 100 MG) PO SCH (08:00)
[2016-03-30 08:17] LABS: ARTERIAL BLOOD O2 SATURATION 90.6 % (94-98)
--- NOTE | 2016-03-30 08:35 | PDOC PROGRESS REPORT ---
Subjective Progress Note for:: 03/30/16 Subjective:: Overnight, patient had decompensation with respiratory acidosis requiring BiPAP administration. Currently, patient is examined while on BiPAP. Her family is present at bedside. Patient reports she's feeling significantly better. She does not want the BiPAP any longer. Physical Exam Vital Signs: Temp Pulse Resp BP Pulse Ox 98.4 F 74 33 H 178/78 H 93 03/30/16 04:00 03/30/16 04:00 03/30/16 04:56 03/30/16 04:00 03/30/16 08:11 Intake & Output 03/29/16 03/30/16 03/31/16 06:59 06:59 06:59 Intake Total 4783 1375 Output Total 350 Balance 4433 1375 Weight 93 kg 93 kg Exam: General: Awake alert and oriented x4, mild respiratory distress HEENT: AT/NC, PERRL, EOMI, oropharynx is dry, pink, no scleral icterus, no conjunctival injection Neck: No JVD, trachea midline Chest: Clear to auscultation bilaterally, no wheezes rhonchi or rales; diminished bilateral bases CV: Regular rate and rhythm, normal S1 and S2, no murmur, rub, or gallop Abdomen: Soft, nontender to palpation, mildly distended and tympanic, active bowel sounds; no rebound, rigidity, or guarding Extremities: No cyanosis, clubbing or edema Neuro: Cranial nerves II through XII are grossly intact without focal deficits; awake alert and oriented x4 Psych: Normal mood and affect Results Laboratory Results: 03/30/16 06:43 03/30/16 06:43 03/30/16 03/30/16 03/30/16 04:55 06:43 06:43 WBC 11.1 H RBC 4.41 Hgb 12.0 Hct 37.4 MCV 85 MCH 27.3 MCHC 32.2 RDW 16.0 H Plt Count 162 Seg Neutrophils % Not Reportable Lymphocytes % Not Reportable Monocytes % Not Reportable Eosinophils % Not Reportable Basophils % Not Reportable Absolute Neutrophils Not Reportable Absolute Lymphocytes Not Reportable Absolute Monocytes Not Reportable Absolute Eosinophils Not Reportable Absolute Basophils Not Reportable Carbonic Acid 3.02 H HCO3/H2CO3 Ratio 8:1 ABG pH 7.03 L* ABG pCO2 100.3 H* ABG pO2 88.8 ABG HCO3 26.1 H ABG O2 Saturation 91.2 L ABG Base Excess -7.1 FiO2 10L Sodium 147.1 H Potassium 4.0 Chloride 110 H Carbon Dioxide 25 Anion Gap 12 BUN 23 H Creatinine 0.92 Est GFR ( Amer) > 60 Est GFR (Non-Af Amer) 57 L Glucose 158 H Calcium 8.2 L 03/30/16 07:54 WBC RBC Hgb Hct MCV MCH MCHC RDW Plt Count Seg Neutrophils % Lymphocytes % Monocytes % Eosinophils % Basophils % Absolute Neutrophils Absolute Lymphocytes Absolute Monocytes Absolute Eosinophils Absolute Basophils Carbonic Acid 1.52 H HCO3/H2CO3 Ratio 15:1 ABG pH 7.29 L ABG pCO2 50.5 H ABG pO2 65.7 L ABG HCO3 24.0 ABG O2 Saturation 90.6 L ABG Base Excess -3.0 FiO2 50% Sodium Potassium Chloride Carbon Dioxide Anion Gap BUN Creatinine Est GFR ( Amer) Est GFR (Non-Af Amer) Glucose Calcium 03/27/16 14:02 Throat Throat Culture - Final NORMAL DOT 03/27/16 14:02 Sputum Gram Stain - Final Impressions: Chest X-Ray 03/30/16 00:00 IMPRESSION: WORSENING OF THE RIGHT BASILAR INFILTRATE. BILATERAL PLEURAL EFFUSIONS AND LEFT BASILAR DENSITY UNCHANGED Assessment & Plan - Diagnosis (1) Pneumonia Qualifiers: Pneumonia type: due to unspecified organism Laterality: bilateral Lung location: lower lobe of lung Qualified Code(s): J18.9 - Pneumonia, unspecified organism Is this a current diagnosis for this admission?: YesPlan: Patient is growing Haemophilus as well as gram-positive cocci in clusters. Have added vancomycin for gram-positive cocci in clusters as patient does have history of MRSA. Patient also has previous history of Pseudomonas, right no gram-negative rods. Continue aggressive pulmonary toileting. (2) Acute hypoxemic respiratory failure Is this a current diagnosis for this admission?: YesPlan: Continue oxygen as needed for pneumonia. (3) Acute hypercapnic respiratory failure Is this a current diagnosis for this admission?: YesPlan: Patient was placed on BiPAP. Will repeat ABG. At this time, patient reports that she does not want BiPAP. Patient is awake alert and oriented to person, place, year, and situation. Patient understands that she may if BiPAP is removed and not replaced. Patient is accepting of this. Discussion had with family. (4) JANICE (acute kidney injury) Is this a current diagnosis for this admission?: YesPlan: Pending repeat BMP. Secondary to dehydration (5) Acute UTI Is this a current diagnosis for this admission?: YesPlan: Escherichia coli, sensitive to Zosyn. (6) COPD (chronic obstructive pulmonary disease) Qualifiers: Emphysema type: unspecified Is this a current diagnosis for this admission?: YesPlan: Consider addition of steroid. Currently no bronchospasm. Continue scheduled nebulized treatments. (7) DMII (diabetes mellitus, type 2) Qualifiers: Diabetes mellitus complication status: without complication Diabetes mellitus assisted insulin use: with assisted use Qualified Code(s): E11.9 - Type 2 diabetes mellitus without complications Is this a current diagnosis for this admission?: YesPlan: Stop metformin. Currently, blood glucose to be kept between will 70 and 180. Continue same scale insulin. 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 Patient is quite clear on her wishes and have discussed with patient and family the role is surrogate decision maker. Patient again reiterates that she does not want BiPAP, intubation, or resuscitation. She understands the indications of this. - Time Time Spent with patient: 35 or more minutes Medications reviewed and adjusted accordingly: Yes
[2016-03-30] MEDS: IPRATROPIUM/ALBUTEROL 0.5-2.5 MG/3 ML AMPUL NEB SCH ×3 (09:04→21:28)
[2016-03-30] MEDS: TORSEMIDE 20 MG TABLET PO SCH (11:35)
[2016-03-30] MEDS: DIGOXIN 0.125 MG TABLET PO SCH (11:36)
[2016-03-30] MEDS: CETIRIZINE 10 MG TABLET PO SCH (11:36)
[2016-03-30] MEDS: SITAGLIPTIN PHOSPHATE 50 MG TABLET PO SCH ×2 (11:36→17:35)
[2016-03-30] MEDS: DOCUSATE SODIUM 100 MG CAPSULE PO SCH ×2 (11:36→17:35)
[2016-03-30] MEDS: TIOTROPIUM BROMIDE DPI 5 CAP/KIT (18 MCG/CAP) IH SCH (11:37)
[2016-03-30] MEDS: AMIODARONE HCL 200 MG TABLET PO SCH (11:37)
[2016-03-30] MEDS: FLUTICASONE/SALMETEROL DISKUS 250-50 MCG/DOSE IH SCH ×2 (11:37→21:48)
[2016-03-30] MEDS: AMLODIPINE BESYLATE 5 MG TABLET PO SCH (11:37)
[2016-03-30] MEDS: CHOLECALCIFEROL (D3) 1,000 UNIT TABLET PO SCH (11:38)
[2016-03-30] MEDS: GUAIFENESIN 600 MG TABLET.SA PO SCH ×2 (11:38→21:48)
[2016-03-30] MEDS: METOPROLOL SUCCINATE 50 MG TAB.SR.24H PO SCH (12:36)
[2016-03-30] MEDS: INSULIN GLARGINE,HUM.REC.ANLOG 300 UNIT/3 ML INSULN.PEN SUBCUT SCH (14:44)
[2016-03-30] MEDS: VANCOMYCIN HCL 1,500 MG in DEXTROSE 5%-WATER 250 ML IV SCH (17:35)
[2016-03-30] MEDS: INSULIN LISPRO 100 UNIT/ML 3 ML VIAL SUBCUT PRN (17:43)
[2016-03-30] MEDS: RIVAROXABAN 15 MG TABLET PO SCH (21:48)
[2016-03-31] MEDS: PIPERACILLIN SODIUM/TAZOBACTAM 3.375 GM in NORMAL SALINE 100 ML IV SCH ×2 (00:17→05:38)
[2016-03-31] MEDS: IPRATROPIUM/ALBUTEROL 0.5-2.5 MG/3 ML AMPUL NEB SCH ×3 (08:40→20:17)
[2016-03-31] MEDS: INSULIN GLARGINE,HUM.REC.ANLOG 300 UNIT/3 ML INSULN.PEN SUBCUT SCH (10:36)
[2016-03-31] MEDS: VANCOMYCIN HCL 1,500 MG in DEXTROSE 5%-WATER 250 ML IV SCH (10:39)
[2016-03-31] MEDS: DOCUSATE SODIUM 100 MG CAPSULE PO SCH ×2 (10:40→17:45)
[2016-03-31] MEDS: SITAGLIPTIN PHOSPHATE 50 MG TABLET PO SCH ×2 (10:40→17:44)
[2016-03-31] MEDS: AMIODARONE HCL 200 MG TABLET PO SCH (10:40)
[2016-03-31] MEDS: TIOTROPIUM BROMIDE DPI 5 CAP/KIT (18 MCG/CAP) IH SCH (10:40)
[2016-03-31] MEDS: AMLODIPINE BESYLATE 5 MG TABLET PO SCH (10:40)
[2016-03-31] MEDS: FLUTICASONE/SALMETEROL DISKUS 250-50 MCG/DOSE IH SCH ×2 (10:40→23:04)
[2016-03-31] MEDS: CHOLECALCIFEROL (D3) 1,000 UNIT TABLET PO SCH (10:41)
[2016-03-31] MEDS: CETIRIZINE 10 MG TABLET PO SCH (10:41)
[2016-03-31] MEDS: METOPROLOL SUCCINATE 50 MG TAB.SR.24H PO SCH (10:41)
[2016-03-31] MEDS: TORSEMIDE 20 MG TABLET PO SCH (10:42)
[2016-03-31] MEDS: DIGOXIN 0.125 MG TABLET PO SCH (10:42)
[2016-03-31] MEDS: GUAIFENESIN 600 MG TABLET.SA PO SCH ×2 (10:42→23:05)
[2016-03-31] MEDS: INSULIN LISPRO 100 UNIT/ML 3 ML VIAL SUBCUT PRN (13:10)
[2016-03-31] MEDS: CEFTRIAXONE 1 GM/D5W RTU 1 GM/50 ML RTUPB IV SCH (13:13)
[2016-03-31] MEDS ORDERED: DEXAMETHASONE SOD PHOSPHATE INJ 4 MG/1 ML VIAL IV SCH (15:15)
[2016-03-31] MEDS ORDERED: NYSTATIN/DEXAMETH/DIPHEN SUSP 120 ML PO ONE (16:30)
[2016-03-31] MEDS: RIVAROXABAN 15 MG TABLET PO SCH (23:05)
[2016-03-31] MEDS: NYSTATIN/DEXAMETH/DIPHEN SUSP 120 ML PO SCH (23:08)
[2016-04-01] MEDS: ACETAMINOPHEN 325 MG TABLET PO PRN ×2 (02:31→23:29)
[2016-04-01] MEDS: IPRATROPIUM/ALBUTEROL 0.5-2.5 MG/3 ML AMPUL NEB SCH ×3 (08:31→20:09)
[2016-04-01 08:45] LABS: ABSOLUTE BASOPHILS # (AUTO) 0.1 10^3/uL (0.0-0.2); ABSOLUTE EOSINOPHILS # (AUTO) 0.3 10^3/uL (0.0-0.6); ABSOLUTE LYMPHOCYTES (AUTO) 0.8 10^3/uL (0.5-4.7); ABSOLUTE NEUT (AUTO) 6.7 10^3/uL (1.7-8.2); BASOPHILS % (AUTO) 0.6 % (0-2); EOSINOPHILS % (AUTO) 3.2 % (0-6); HEMATOCRIT 38.1 % (36.0-47.0); HEMOGLOBIN 12.2 g/dL (12.0-15.5); HGB HCT DIFFERENCE -1.5; LYMPHOCYTES % (AUTO) 8.9 % (13-45); MEAN CORPUSCULAR HEMOGLOBIN 26.9 pg (27.0-33.4); MEAN CORPUSCULAR VOLUME 84 fl (80-97); MONOCYTES % (AUTO) 11.2 % (3-13); RED BLOOD COUNT 4.52 10^6/uL (3.72-5.28); RED CELL DISTRIBUTION WIDTH 15.6 % (11.5-14.0); SEGMENTED NEUTROPHILS % (AUTO) 76.1 % (42-78); WHITE BLOOD COUNT 8.8 10^3/uL (4.0-10.5)
[2016-04-01 09:14] LABS: ANION GAP 10 (5-19); BLOOD UREA NITROGEN 18 mg/dL (7-20); CALCIUM 8.8 mg/dL (8.4-10.2); CARBON DIOXIDE 34 mmol/L (22-30); CHLORIDE 103 mmol/L (98-107); CREATININE RESULT 0.83 mg/dL (0.52-1.25); GLUCOSE 135 mg/dL (75-110); POTASSIUM 3.6 mmol/L (3.6-5.0); SODIUM 147.3 mmol/L (137-145)
[2016-04-01] MEDS: NYSTATIN/DEXAMETH/DIPHEN SUSP 120 ML PO SCH ×4 (10:56→23:17)
[2016-04-01] MEDS: CHOLECALCIFEROL (D3) 1,000 UNIT TABLET PO SCH (10:56)
[2016-04-01] MEDS: FLUTICASONE/SALMETEROL DISKUS 250-50 MCG/DOSE IH SCH ×2 (10:56→23:14)
[2016-04-01] MEDS: TORSEMIDE 20 MG TABLET PO SCH (10:57)
[2016-04-01] MEDS: DIGOXIN 0.125 MG TABLET PO SCH (10:57)
[2016-04-01] MEDS: SITAGLIPTIN PHOSPHATE 50 MG TABLET PO SCH ×2 (10:58→18:05)
[2016-04-01] MEDS: AMIODARONE HCL 200 MG TABLET PO SCH (10:58)
[2016-04-01] MEDS: CETIRIZINE 10 MG TABLET PO SCH (10:58)
[2016-04-01] MEDS: GUAIFENESIN 600 MG TABLET.SA PO SCH ×2 (10:58→23:15)
[2016-04-01] MEDS: METOPROLOL SUCCINATE 50 MG TAB.SR.24H PO SCH (10:58)
[2016-04-01] MEDS: DOCUSATE SODIUM 100 MG CAPSULE PO SCH ×2 (10:58→18:05)
[2016-04-01] MEDS: AMLODIPINE BESYLATE 5 MG TABLET PO SCH (10:58)
[2016-04-01] MEDS: INSULIN GLARGINE,HUM.REC.ANLOG 300 UNIT/3 ML INSULN.PEN SUBCUT SCH (10:59)
[2016-04-01] MEDS: VANCOMYCIN HCL 1,500 MG in DEXTROSE 5%-WATER 250 ML IV SCH (11:47)
[2016-04-01] MEDS: TIOTROPIUM BROMIDE DPI 5 CAP/KIT (18 MCG/CAP) IH SCH (11:47)
[2016-04-01] MEDS: CEFTRIAXONE 1 GM/D5W RTU 1 GM/50 ML RTUPB IV SCH (16:52)
[2016-04-01] MEDS: INSULIN LISPRO 100 UNIT/ML 3 ML VIAL SUBCUT PRN (18:06)
--- NOTE | 2016-04-01 20:01 | PDOC PROGRESS REPORT ---
Subjective Progress Note for:: 03/31/16 Subjective:: Patient complains of odynophagia this morning. Patient denies abdominal pain, nausea, vomiting, fevers, chills, diarrhea, constipation, headache, new onset weakness. Physical Exam Vital Signs: Temp Pulse Resp BP Pulse Ox 97.8 F 69 18 157/65 H 95 03/31/16 07:25 03/31/16 07:25 03/31/16 07:25 03/31/16 07:25 03/31/16 07:25 Intake & Output 03/30/16 03/31/16 04/01/16 06:59 06:59 06:59 Intake Total 1375 1260 Output Total 4700 Balance 1375 -3440 Weight 93 kg 93 kg Exam: General: Awake alert and oriented x4, mild respiratory distress HEENT: AT/NC, PERRL, EOMI, oropharynx is moist, thrush, no scleral icterus, no conjunctival injection Neck: No JVD, trachea midline Chest: Occasional Rhonchi bilaterally; diminished bilateral bases CV: Regular rate and rhythm, normal S1 and S2, no murmur, rub, or gallop Abdomen: Soft, nontender to palpation, nondistended and tympanic, active bowel sounds; no rebound, rigidity, or guarding Extremities: No cyanosis, clubbing or edema Neuro: Cranial nerves II through XII are grossly intact without focal deficits; awake alert and oriented x4 Psych: Normal mood and affect Results Laboratory Results: 03/30/16 06:43 03/30/16 06:43 03/29/16 18:15 Nasophary ([facility] Only) MRSA Surveillance Culture - Final NO MRSA RECOVERED 03/27/16 14:02 Sputum Gram Stain - Final 03/27/16 14:02 Sputum Sputum Culture - Final Mrsa (Meth Resis Staph Aureus) Haemophilus Influenzae Reduced Normal Farideh Impressions: Chest X-Ray 03/30/16 14:00 IMPRESSION: Bilateral pleural effusions and bibasilar consolidation atelectasis versus pneumonia. Pulmonary vascular prominence with few Keith lines worrisome for superimposed fluid overload Assessment & Plan - Diagnosis (1) Pneumonia Qualifiers: Pneumonia type: due to methicillin-resistant Staphylococcus aureus (MRSA) Laterality: bilateral Lung location: lower lobe of lung Qualified Code(s): J15.212 - Pneumonia due to Methicillin resistant Staphylococcus aureus Is this a current diagnosis for this admission?: YesPlan: Patient is growing Haemophilus as well as MRSA. Patient on vancomycin and will de-escalate Zosyn to Rocephin. Continue aggressive pulmonary toileting. (2) Acute hypoxemic respiratory failure Is this a current diagnosis for this admission?: YesPlan: Continue oxygen as needed for pneumonia. 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 living 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 Qualified Code(s): E11.9 - Type 2 diabetes mellitus without complications Is this a current diagnosis for this admission?: Yes (8) Essential (primary) hypertension Is this a current diagnosis for this admission?: Yes (9) Paroxysmal a-fib Is this a current diagnosis for this admission?: Yes (10) DVT prophylaxis Is this a current diagnosis for this admission?: Yes (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
--- NOTE | 2016-04-01 20:11 | PDOC PROGRESS REPORT ---
Subjective Progress Note for:: 04/01/16 Subjective:: Patient reports she's feeling much better. Patient is still quite short of breath when ambulating to the bathroom. Patient denies abdominal pain, nausea, vomiting, fevers, chills, diarrhea, constipation, headache, new onset weakness. Physical Exam Vital Signs: Temp Pulse Resp BP Pulse Ox 97.5 F 62 13 159/65 H 93 04/01/16 04:21 04/01/16 06:55 04/01/16 04:21 04/01/16 04:21 04/01/16 04:21 Intake & Output 03/31/16 04/01/16 04/02/16 06:59 06:59 06:59 Intake Total 1260 603 Output Total 4700 700 Balance -3440 -97 Weight 93 kg Exam: General: Awake alert and oriented x4, mild respiratory distress HEENT: AT/NC, PERRL, EOMI, oropharynx is moist, clearing thrush, no scleral icterus, no conjunctival injection Neck: No JVD, trachea midline Chest: diminished bilateral base; rhonchi bilaterally, prolonged expiratory phase CV: Regular rate and rhythm, normal S1 and S2, no murmur, rub, or gallop Abdomen: Soft, nontender to palpation, nondistended and tympanic, active bowel sounds; no rebound, rigidity, or guarding Extremities: No cyanosis, clubbing or edema Neuro: Cranial nerves II through XII are grossly intact without focal deficits; awake alert and oriented x4 Psych: Normal mood and affect Results Laboratory Results: 03/30/16 06:43 03/30/16 06:43 03/29/16 18:15 Nasophary ([facility] Only) MRSA Surveillance Culture - Final NO MRSA RECOVERED Impressions: Chest X-Ray 03/30/16 14:00 IMPRESSION: Bilateral pleural effusions and bibasilar consolidation atelectasis versus pneumonia. Pulmonary vascular prominence with few Keith lines worrisome for superimposed fluid overload Assessment & Plan - Diagnosis (1) Pneumonia Qualifiers: Pneumonia type: due to methicillin-resistant Staphylococcus aureus (MRSA) Laterality: bilateral Lung location: lower lobe of lung Qualified Code(s): J15.212 - Pneumonia due to Methicillin resistant Staphylococcus aureus Is this a current diagnosis for this admission?: YesPlan: Patient is growing Haemophilus as well as MRSA. Patient on vancomycin and Rocephin. Continue aggressive pulmonary toileting. (2) Acute hypoxemic respiratory failure Is this a current diagnosis for this admission?: YesPlan: Continue oxygen as needed for pneumonia. (3) Acute hypercapnic respiratory failure Is this a current diagnosis for this admission?: YesPlan: Patient refuses to use BiPAP. She understands that if the occasion calls for it and she does not use it that she will . (4) JANICE (acute kidney injury) Is this a current diagnosis for this admission?: Yes (5) Acute UTI Is this a current diagnosis for this admission?: YesPlan: Escherichia coli, sensitive to Rocephin (6) COPD (chronic obstructive pulmonary disease) Qualifiers: Emphysema type: unspecified Is this a current diagnosis for this admission?: YesPlan: Consider addition of steroid. Currently no bronchospasm. Continue scheduled nebulized treatments. (7) DMII (diabetes mellitus, type 2) Qualifiers: Diabetes mellitus complication status: without complication Diabetes mellitus director long term care insulin use: with director long term care use Qualified Code(s): E11.9 - Type 2 diabetes mellitus without complications Is this a current diagnosis for this admission?: YesPlan: Stop metformin. Currently, blood glucose to be kept between will 70 and 180. Continue same scale insulin. 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
[2016-04-01] MEDS: RIVAROXABAN 15 MG TABLET PO SCH (23:15)
[2016-04-02 06:13] LABS: HEMATOCRIT 36.9 % (36.0-47.0); HEMOGLOBIN 11.8 g/dL (12.0-15.5); HGB HCT DIFFERENCE -1.5; MEAN CORPUSCULAR HEMOGLOBIN 26.8 pg (27.0-33.4); MEAN CORPUSCULAR VOLUME 84 fl (80-97); RED CELL DISTRIBUTION WIDTH 15.4 % (11.5-14.0); WHITE BLOOD COUNT 12.2 10^3/uL (4.0-10.5)
[2016-04-02 06:41] LABS: BASOPHILS % (MANUAL) 0 % (0-2); EOSINOPHILS % (MANUAL) 1 % (0-6); LYMPHOCYTES % (MANUAL) 12 % (13-45); NUCLEATED RED BLOOD CELLS 2 /100 WBC (0); TOTAL CELLS COUNTED 100
[2016-04-02 06:44] LABS: POIKILOCYTOSIS SLIGHT; POLYCHROMASIA SLIGHT
[2016-04-02 06:45] LABS: ANISOCYTOSIS 1+; SCHISTOCYTES SLIGHT
[2016-04-02] MEDS: IPRATROPIUM/ALBUTEROL 0.5-2.5 MG/3 ML AMPUL NEB SCH ×3 (07:57→19:52)
[2016-04-02 08:05] LABS: ANION GAP 11 (5-19); BLOOD UREA NITROGEN 18 mg/dL (7-20); CALCIUM 8.6 mg/dL (8.4-10.2); CARBON DIOXIDE 37 mmol/L (22-30); CHLORIDE 98 mmol/L (98-107); CREATININE RESULT 0.84 mg/dL (0.52-1.25); GLUCOSE 119 mg/dL (75-110); POTASSIUM 3.5 mmol/L (3.6-5.0); SODIUM 145.9 mmol/L (137-145)
[2016-04-02] MEDS ORDERED: POTASSIUM CHLORIDE 10 MEQ TABLET.SA PO ONE (09:15)
[2016-04-02] MEDS: VANCOMYCIN HCL 1,500 MG in DEXTROSE 5%-WATER 250 ML IV SCH (10:23)
[2016-04-02 10:31] LABS: CREATININE RESULT 0.83 mg/dL (0.52-1.25)
[2016-04-02] MEDS: AMIODARONE HCL 200 MG TABLET PO SCH (11:31)
[2016-04-02] MEDS: CHOLECALCIFEROL (D3) 1,000 UNIT TABLET PO SCH (11:33)
[2016-04-02] MEDS: CETIRIZINE 10 MG TABLET PO SCH (11:33)
[2016-04-02] MEDS: GUAIFENESIN 600 MG TABLET.SA PO SCH ×2 (11:34→23:15)
[2016-04-02] MEDS: DOCUSATE SODIUM 100 MG CAPSULE PO SCH ×2 (11:34→17:53)
[2016-04-02] MEDS: FLUTICASONE/SALMETEROL DISKUS 250-50 MCG/DOSE IH SCH (11:35)
[2016-04-02] MEDS: AMLODIPINE BESYLATE 5 MG TABLET PO SCH (11:36)
[2016-04-02] MEDS: METOPROLOL SUCCINATE 50 MG TAB.SR.24H PO SCH (11:38)
[2016-04-02] MEDS: DIGOXIN 0.125 MG TABLET PO SCH (11:39)
[2016-04-02] MEDS: NYSTATIN/DEXAMETH/DIPHEN SUSP 120 ML PO SCH ×4 (11:41→23:18)
[2016-04-02] MEDS: TORSEMIDE 20 MG TABLET PO SCH (11:42)
[2016-04-02] MEDS: TIOTROPIUM BROMIDE DPI 5 CAP/KIT (18 MCG/CAP) IH SCH (11:46)
[2016-04-02] MEDS: SITAGLIPTIN PHOSPHATE 50 MG TABLET PO SCH ×2 (11:47→17:54)
[2016-04-02] MEDS: INSULIN GLARGINE,HUM.REC.ANLOG 300 UNIT/3 ML INSULN.PEN SUBCUT SCH (12:01)
[2016-04-02] MEDS: CEFTRIAXONE 1 GM/D5W RTU 1 GM/50 ML RTUPB IV SCH (13:14)
[2016-04-02] MEDS: INSULIN LISPRO 100 UNIT/ML 3 ML VIAL SUBCUT PRN ×2 (13:15→18:07)
[2016-04-02 15:17] LABS: PATH REVIEW PATHOLOGIST REVIEWED
[2016-04-02] MEDS: AMOXICILLIN TR/POT CLAVULANATE 500-125 MG TAB PO SCH (23:14)
[2016-04-02] MEDS: RIVAROXABAN 15 MG TABLET PO SCH (23:15)
[2016-04-02] MEDS: LINEZOLID 300 ML IV SCH (23:19)
[2016-04-03] MEDS ORDERED: FLUTICASONE/SALMETEROL DISKUS 250-50 MCG/DOSE IH ONE (01:32)
--- NOTE | 2016-04-03 04:09 | PDOC PROGRESS REPORT ---
Subjective Progress Note for:: 04/02/16 Subjective:: Patient reports she's feeling much better. Family provided outside food and she ate well. Patient denies chest pain, abdominal pain, nausea, vomiting, fevers, chills, diarrhea, constipation, headache, new onset weakness. Physical Exam Vital Signs: Temp Pulse Resp BP Pulse Ox 97.9 F 58 L 20 135/67 H 96 04/02/16 03:36 04/02/16 03:36 04/02/16 03:36 04/02/16 03:36 04/02/16 03:36 Intake & Output 04/01/16 04/02/16 04/03/16 06:59 06:59 06:59 Intake Total 603 1243 Output Total 700 700 Balance -97 543 Weight 171.2 kg 171.1 kg Exam: General: Awake alert and oriented x4, mild respiratory distress HEENT: AT/NC, PERRL, EOMI, oropharynx is moist, pink, no scleral icterus, no conjunctival injection Neck: No JVD, trachea midline Chest: diminished bilateral base; occasional rhonchi bilaterally, prolonged expiratory phase CV: Regular rate and rhythm, normal S1 and S2, no murmur, rub, or gallop Abdomen: Soft, nontender to palpation, nondistended and tympanic, active bowel sounds; no rebound, rigidity, or guarding Extremities: No cyanosis, clubbing or edema Neuro: Cranial nerves II through XII are grossly intact without focal deficits; awake alert and oriented x4 Psych: Normal mood and affect Results Laboratory Results: 04/02/16 03:45 04/02/16 07:10 04/01/16 04/01/16 04/02/16 08:07 08:07 03:45 WBC 8.8 12.2 H RBC 4.52 4.40 Hgb 12.2 11.8 L Hct 38.1 36.9 MCV 84 84 MCH 26.9 L 26.8 L MCHC 32.0 32.0 RDW 15.6 H 15.4 H Plt Count 269 327 Seg Neutrophils % 76.1 Not Reportable Lymphocytes % 8.9 L Not Reportable Monocytes % 11.2 Not Reportable Eosinophils % 3.2 Not Reportable Basophils % 0.6 Not Reportable Absolute Neutrophils 6.7 Not Reportable Absolute Lymphocytes 0.8 Not Reportable Absolute Monocytes 1.0 Not Reportable Absolute Eosinophils 0.3 Not Reportable Absolute Basophils 0.1 Not Reportable Sodium 147.3 H Potassium 3.6 Chloride 103 Carbon Dioxide 34 H Anion Gap 10 BUN 18 Creatinine 0.83 Est GFR ( Amer) > 60 Est GFR (Non-Af Amer) > 60 Glucose 135 H Calcium 8.8 04/02/16 07:10 WBC RBC Hgb Hct MCV MCH MCHC RDW Plt Count Seg Neutrophils % Lymphocytes % Monocytes % Eosinophils % Basophils % Absolute Neutrophils Absolute Lymphocytes Absolute Monocytes Absolute Eosinophils Absolute Basophils Sodium 145.9 H Potassium 3.5 L Chloride 98 Carbon Dioxide 37 H Anion Gap 11 BUN 18 Creatinine 0.84 Est GFR ( Amer) > 60 Est GFR (Non-Af Amer) > 60 Glucose 119 H Calcium 8.6 03/27/16 14:38 Blood Blood Culture - Final NO GROWTH IN 5 DAYS Impressions: Chest X-Ray 03/30/16 14:00 IMPRESSION: Bilateral pleural effusions and bibasilar consolidation atelectasis versus pneumonia. Pulmonary vascular prominence with few Keith lines worrisome for superimposed fluid overload Assessment & Plan - Diagnosis (1) Pneumonia Qualifiers: Pneumonia type: due to methicillin-resistant Staphylococcus aureus (MRSA) Laterality: bilateral Lung location: lower lobe of lung Qualified Code(s): J15.212 - Pneumonia due to Methicillin resistant Staphylococcus aureus Is this a current diagnosis for this admission?: YesPlan: Patient is growing Haemophilus as well as MRSA. Transition patient to Augmentin and Zyvox. Haemophilus influenza with inherent resistance to Zyvox, will add Augmentin for this. Continue aggressive pulmonary toileting. (2) Acute hypoxemic respiratory failure Is this a current diagnosis for this admission?: YesPlan: Continue oxygen as needed for pneumonia. (3) Acute hypercapnic respiratory failure Is this a current diagnosis for this admission?: YesPlan: Patient refuses to use BiPAP. She understands that if the occasion calls for it and she does not use it that she will . (4) JANICE (acute kidney injury) Is this a current diagnosis for this admission?: YesPlan: Secondary to dehydration (5) Acute UTI Is this a current diagnosis for this admission?: YesPlan: Escherichia coli, sensitive to Rocephin (6) COPD (chronic obstructive pulmonary disease) Qualifiers: Emphysema type: unspecified Is this a current diagnosis for this admission?: YesPlan: Consider addition of steroid. Currently no bronchospasm. Continue scheduled nebulized treatments. (7) DMII (diabetes mellitus, type 2) Qualifiers: Diabetes mellitus complication status: without complication Diabetes mellitus correction insulin use: with correction use Qualified Code(s): E11.9 - Type 2 diabetes mellitus without complications Is this a current diagnosis for this admission?: YesPlan: Stop metformin. Currently, blood glucose to be kept between will 70 and 180. Continue same scale insulin. 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
[2016-04-03] MEDS: FLUTICASONE/SALMETEROL DISKUS 250-50 MCG/DOSE IH SCH ×3 (04:40→22:44)
[2016-04-03] MEDS: AMOXICILLIN TR/POT CLAVULANATE 500-125 MG TAB PO SCH (06:34)
[2016-04-03] MEDS: IPRATROPIUM/ALBUTEROL 0.5-2.5 MG/3 ML AMPUL NEB SCH ×3 (09:22→20:22)
[2016-04-03] MEDS: LINEZOLID 300 ML IV SCH (10:00)
[2016-04-03] MEDS: DOCUSATE SODIUM 100 MG CAPSULE PO SCH ×2 (10:56→17:49)
[2016-04-03] MEDS: CHOLECALCIFEROL (D3) 1,000 UNIT TABLET PO SCH (10:56)
[2016-04-03] MEDS: AMLODIPINE BESYLATE 5 MG TABLET PO SCH (10:56)
[2016-04-03] MEDS: METOPROLOL SUCCINATE 50 MG TAB.SR.24H PO SCH (10:57)
[2016-04-03] MEDS: GUAIFENESIN 600 MG TABLET.SA PO SCH ×2 (10:57→21:43)
[2016-04-03] MEDS: SITAGLIPTIN PHOSPHATE 50 MG TABLET PO SCH ×2 (10:57→17:49)
[2016-04-03] MEDS: CETIRIZINE 10 MG TABLET PO SCH (10:57)
[2016-04-03] MEDS: DIGOXIN 0.125 MG TABLET PO SCH (11:03)
[2016-04-03] MEDS: TIOTROPIUM BROMIDE DPI 5 CAP/KIT (18 MCG/CAP) IH SCH (11:04)
[2016-04-03] MEDS: TORSEMIDE 20 MG TABLET PO SCH (11:04)
[2016-04-03] MEDS: NYSTATIN/DEXAMETH/DIPHEN SUSP 120 ML PO SCH ×4 (11:05→21:43)
[2016-04-03] MEDS: INSULIN GLARGINE,HUM.REC.ANLOG 300 UNIT/3 ML INSULN.PEN SUBCUT SCH (11:11)
[2016-04-03] MEDS: AMIODARONE HCL 200 MG TABLET PO SCH (11:23)
[2016-04-03] MEDS ORDERED: LINEZOLID 600 MG TABLET PO ONE (13:00)
[2016-04-03] MEDS ORDERED: DOXYCYCLINE HYCLATE 100 MG TABLET PO ONE (13:00)
[2016-04-03] MEDS: INSULIN LISPRO 100 UNIT/ML 3 ML VIAL SUBCUT PRN ×2 (14:23→22:47)
--- NOTE | 2016-04-03 18:12 | PDOC PROGRESS REPORT ---
Subjective Progress Note for:: 04/03/16 Subjective:: Patient is feeling generally better. She denies shortness of breath. She states she is on chronic home oxygen at 3 L nasal cannula. She tells me that I am going to discharge her from the hospital in the morning back to [facility]. Patient denies fever, chills, headache, new focal weakness, chest pain , shortness of breath, abdominal pain, nausea, vomiting, diarrhea, constipation. Physical Exam Vital Signs: Temp Pulse Resp BP Pulse Ox 97.9 F 61 14 140/71 H 94 04/03/16 15:46 04/03/16 15:46 04/03/16 15:46 04/03/16 15:46 04/03/16 16:13 Intake & Output 04/02/16 04/03/16 04/04/16 06:59 06:59 06:59 Intake Total 1243 980 440 Output Total 700 1100 Balance 543 -120 440 Weight 171.1 kg 92.9 kg GENERAL: No acute distress HEENT: Conjunctiva clear, nonicteric, moist mucous membranes, no JVD, midline trachea RESPIRATORY: Clear to auscultation bilaterally, no wheezes, no rhonchi CARDIAC: Regular rate and rhythm, no murmurs/gallops/rubs ABDOMEN: Soft, nondistended, nontender, positive bowel sounds, no rebound, no guarding EXTREMETIES: No edema, cyanosis, clubbing NEUROLOGIC: Alert, oriented to person/place/time, CN's grossly intact, no focal deficits SKIN: No rash, wounds PSYCH: Normal mood, normal affect Results Laboratory Results: 04/02/16 03:45 04/02/16 09:58 Impressions: Chest X-Ray 03/30/16 14:00 IMPRESSION: Bilateral pleural effusions and bibasilar consolidation atelectasis versus pneumonia. Pulmonary vascular prominence with few Keith lines worrisome for superimposed fluid overload Assessment & Plan - Diagnosis (1) Pneumonia Qualifiers: Pneumonia type: due to methicillin-resistant Staphylococcus aureus (MRSA) Laterality: bilateral Lung location: lower lobe of lung Qualified Code(s): J15.212 - Pneumonia due to Methicillin resistant Staphylococcus aureus Is this a current diagnosis for this admission?: YesPlan: Sputum culture growing MRSA and Haemophilus influenza. Continue Zyvox. Discontinue Augmentin and start doxycycline. (2) Acute on chronic respiratory failure with hypoxemia Is this a current diagnosis for this admission?: YesPlan: Continue oxygen supplementation. Patient is on 3 L nasal cannula oxygen at baseline prior to admission. (3) Acute UTI Is this a current diagnosis for this admission?: YesPlan: Urine growing Escherichia coli sensitive to doxycycline. Above-mentioned antibiotic regimen will suffice. (4) COPD (chronic obstructive pulmonary disease) Qualifiers: Emphysema type: unspecified Is this a current diagnosis for this admission?: YesPlan: Continue Advair, Spiriva, nebulizer treatments. (5) Chronic combined systolic (congestive) and diastolic (congestive) heart failure Is this a current diagnosis for this admission?: YesPlan: Continue Demadex 20 mg daily, Toprol-XL 50 mg daily. (6) DMII (diabetes mellitus, type 2) Qualifiers: Diabetes mellitus complication status: without complication Diabetes mellitus medical terminologist insulin use: with residential use Qualified Code(s): E11.9 - Type 2 diabetes mellitus without complications Is this a current diagnosis for this admission?: YesPlan: Continue Januvia 50 mg twice daily. Lantus 10 units subcutaneous daily. Sliding scale insulin. (7) Essential (primary) hypertension Is this a current diagnosis for this admission?: Yes (8) Paroxysmal a-fib Is this a current diagnosis for this admission?: YesPlan: Continue digoxin, Toprol-XL for heart rate control. Continue Xarelto 15 mg nightly. - Time Time Spent with patient: 35 or more minutes Anticipated discharge: Other - [facility] Assisted living facility Within: within 24 hours
[2016-04-03] MEDS: RIVAROXABAN 15 MG TABLET PO SCH (21:43)
[2016-04-03] MEDS: DOXYCYCLINE HYCLATE 100 MG TABLET PO SCH (21:43)
[2016-04-03] MEDS: LINEZOLID 600 MG TABLET PO SCH (21:43)
[2016-04-04 08:05] LABS: HEMATOCRIT 36.7 % (36.0-47.0); HEMOGLOBIN 11.8 g/dL (12.0-15.5); HGB HCT DIFFERENCE -1.3; MEAN CORPUSCULAR HEMOGLOBIN 26.7 pg (27.0-33.4); MEAN CORPUSCULAR VOLUME 84 fl (80-97); RED CELL DISTRIBUTION WIDTH 15.3 % (11.5-14.0); WHITE BLOOD COUNT 14.3 10^3/uL (4.0-10.5)
[2016-04-04 08:23] LABS: ANION GAP 12 (5-19); BLOOD UREA NITROGEN 23 mg/dL (7-20); CALCIUM 9.5 mg/dL (8.4-10.2); CARBON DIOXIDE 37 mmol/L (22-30); CHLORIDE 96 mmol/L (98-107); CREATININE RESULT 0.74 mg/dL (0.52-1.25); GLUCOSE 128 mg/dL (75-110); POTASSIUM 4.1 mmol/L (3.6-5.0); SODIUM 144.7 mmol/L (137-145)
[2016-04-04 08:31] LABS: BAND NEUTROPHILS % (MANUAL) 1 % (3-5); BASOPHILS % (MANUAL) 0 % (0-2); EOSINOPHILS % (MANUAL) 1 % (0-6); LYMPHOCYTES % (MANUAL) 7 % (13-45); TOTAL CELLS COUNTED 100
[2016-04-04 08:34] LABS: ANISOCYTOSIS 1+; POIKILOCYTOSIS SLIGHT; POLYCHROMASIA SLIGHT; SCHISTOCYTES SLIGHT
[2016-04-04] MEDS: IPRATROPIUM/ALBUTEROL 0.5-2.5 MG/3 ML AMPUL NEB SCH (08:53)
[2016-04-04] MEDS ORDERED: ALBUTEROL SULFATE 0.083% NEB 2.5 MG/3 ML AMPUL NEB PRN (09:26)
--- NOTE | 2016-04-04 09:50 | PDOC PROGRESS REPORT ---
Subjective Progress Note for:: 04/04/16 Subjective:: Patient complains of "indigestion" today. She is also having some pain in her midchest with swallowing. Patient denies fever, chills, headache, new focal weakness, shortness of breath, abdominal pain, nausea, vomiting, diarrhea, constipation. Incidentally patient's son states that patient always complains of "indigestion " from "hiatal hernia". Physical Exam Vital Signs: Temp Pulse Resp BP Pulse Ox 97.9 F 60 21 H 154/61 H 94 04/04/16 04:13 04/04/16 07:00 04/04/16 04:13 04/04/16 04:13 04/04/16 04:13 Intake & Output 04/03/16 04/04/16 04/05/16 06:59 06:59 06:59 Intake Total 980 1768 Output Total 1100 100 Balance -120 1668 Weight 92.9 kg 92.9 kg GENERAL: No acute distress HEENT: Conjunctiva clear, nonicteric, moist mucous membranes, no JVD, midline trachea RESPIRATORY: Clear to auscultation bilaterally, no wheezes, no rhonchi CARDIAC: Regular rate and rhythm, no murmurs/gallops/rubs ABDOMEN: Soft, nondistended, nontender, positive bowel sounds, no rebound, no guarding EXTREMETIES: No edema, cyanosis, clubbing NEUROLOGIC: Alert, oriented to person/place/time, CN's grossly intact, no focal deficits SKIN: No rash, wounds PSYCH: Normal mood, normal affect Results Laboratory Results: 04/04/16 07:42 04/04/16 07:42 04/04/16 04/04/16 07:42 07:42 WBC 14.3 H RBC 4.40 Hgb 11.8 L Hct 36.7 MCV 84 MCH 26.7 L MCHC 32.0 RDW 15.3 H Plt Count 402 Seg Neutrophils % Not Reportable Lymphocytes % Not Reportable Monocytes % Not Reportable Eosinophils % Not Reportable Basophils % Not Reportable Absolute Neutrophils Not Reportable Absolute Lymphocytes Not Reportable Absolute Monocytes Not Reportable Absolute Eosinophils Not Reportable Absolute Basophils Not Reportable Sodium 144.7 Potassium 4.1 Chloride 96 L Carbon Dioxide 37 H Anion Gap 12 BUN 23 H Creatinine 0.74 Est GFR ( Amer) > 60 Est GFR (Non-Af Amer) > 60 Glucose 128 H Calcium 9.5 Impressions: Chest X-Ray 03/30/16 14:00 IMPRESSION: Bilateral pleural effusions and bibasilar consolidation atelectasis versus pneumonia. Pulmonary vascular prominence with few Keith lines worrisome for superimposed fluid overload Assessment & Plan - Diagnosis (1) Chest pain Is this a current diagnosis for this admission?: YesPlan: Likely secondary to esophagitis. This may be related to known hiatal hernia/ GERD or could also be related to candidal esophagitis given current broad- spectrum antibiotic use. Start patient on Prevacid 30 mg twice daily. Continue nystatin suspension. Check EKG, chest x-ray, serial cardiac enzymes. (2) Leukocytosis Is this a current diagnosis for this admission?: YesPlan: Patient is afebrile and clinically improving. Continue current antibiotics. (3) Pneumonia Qualifiers: Pneumonia type: due to methicillin-resistant Staphylococcus aureus (MRSA) Laterality: bilateral Lung location: lower lobe of lung Qualified Code(s): J15.212 - Pneumonia due to Methicillin resistant Staphylococcus aureus Is this a current diagnosis for this admission?: YesPlan: Sputum culture growing MRSA and Haemophilus influenza. Continue Zyvox and doxycycline. (4) Acute on chronic respiratory failure with hypoxemia Is this a current diagnosis for this admission?: YesPlan: Continue oxygen supplementation. Patient is on 3 L nasal cannula oxygen at baseline prior to admission. (5) Acute UTI Is this a current diagnosis for this admission?: YesPlan: Urine growing Escherichia coli sensitive to doxycycline. Continue doxycycline. (6) COPD (chronic obstructive pulmonary disease) Qualifiers: Emphysema type: unspecified Is this a current diagnosis for this admission?: YesPlan: Continue Advair, Spiriva, nebulizer treatments. (7) Chronic combined systolic (congestive) and diastolic (congestive) heart failure Is this a current diagnosis for this admission?: YesPlan: Continue Demadex 20 mg daily, Toprol-XL 50 mg daily. (8) DMII (diabetes mellitus, type 2) Qualifiers: Diabetes mellitus complication status: without complication Diabetes mellitus long winder tender insulin use: with long winder tender use Qualified Code(s): E11.9 - Type 2 diabetes mellitus without complications Is this a current diagnosis for this admission?: YesPlan: Continue Januvia 50 mg twice daily. Lantus 10 units subcutaneous daily. Sliding scale insulin. (9) Essential (primary) hypertension Is this a current diagnosis for this admission?: Yes (10) Paroxysmal a-fib Is this a current diagnosis for this admission?: YesPlan: Continue digoxin, Toprol-XL for heart rate control. Continue Xarelto 15 mg nightly. - Time Time Spent with patient: 35 or more minutes Anticipated discharge: Other - Assisted living facility Within: within 48 hours
[2016-04-04] MEDS: CHOLECALCIFEROL (D3) 1,000 UNIT TABLET PO SCH (11:09)
[2016-04-04] MEDS: METOPROLOL SUCCINATE 50 MG TAB.SR.24H PO SCH (11:09)
[2016-04-04] MEDS: GUAIFENESIN 600 MG TABLET.SA PO SCH ×2 (11:10→21:35)
[2016-04-04] MEDS: LANSOPRAZOLE 30 MG TAB.RAP.DR PO SCH ×2 (11:10→18:05)
[2016-04-04] MEDS: CETIRIZINE 10 MG TABLET PO SCH (11:10)
[2016-04-04] MEDS: AMLODIPINE BESYLATE 5 MG TABLET PO SCH (11:11)
[2016-04-04] MEDS: AMIODARONE HCL 200 MG TABLET PO SCH (11:11)
[2016-04-04] MEDS: SITAGLIPTIN PHOSPHATE 50 MG TABLET PO SCH ×2 (11:11→18:05)
[2016-04-04] MEDS: DOCUSATE SODIUM 100 MG CAPSULE PO SCH ×2 (11:11→18:04)
[2016-04-04] MEDS: DIGOXIN 0.125 MG TABLET PO SCH (11:11)
[2016-04-04] MEDS: LINEZOLID 600 MG TABLET PO SCH ×2 (11:12→21:35)
[2016-04-04] MEDS: DOXYCYCLINE HYCLATE 100 MG TABLET PO SCH ×2 (11:12→21:36)
[2016-04-04] MEDS: FLUTICASONE/SALMETEROL DISKUS 250-50 MCG/DOSE IH SCH ×2 (11:13→21:36)
[2016-04-04] MEDS: INSULIN GLARGINE,HUM.REC.ANLOG 300 UNIT/3 ML INSULN.PEN SUBCUT SCH (11:14)
[2016-04-04] MEDS: TIOTROPIUM BROMIDE DPI 5 CAP/KIT (18 MCG/CAP) IH SCH (11:14)
[2016-04-04] MEDS: TORSEMIDE 20 MG TABLET PO SCH (11:22)
[2016-04-04 11:29] LABS: CREATINE KINASE MB 1.54 ng/mL (<4.55); TROPONIN I 0.019 ng/mL
--- NOTE | 2016-04-04 13:49 | EKG REPORT ---
SEVERITY:- ABNORMAL ECG - SINUS RHYTHM NONSPECIFIC INTRAVENTRICULAR CONDUCTION DELAY BORDERLINE ST DEPRESSION, DIFFUSE LEADS : Confirmed by: Xander Carlisle MD 04-Apr-2016 13:49:16
[2016-04-04] MEDS: NYSTATIN/DEXAMETH/DIPHEN SUSP 120 ML PO SCH ×3 (15:06→21:36)
[2016-04-04 17:24] LABS: CREATINE KINASE MB 1.38 ng/mL (<4.55); TROPONIN I 0.023 ng/mL
[2016-04-04] MEDS: INSULIN LISPRO 100 UNIT/ML 3 ML VIAL SUBCUT PRN ×2 (18:05→21:49)
[2016-04-04] MEDS: RIVAROXABAN 15 MG TABLET PO SCH (21:35)
[2016-04-04 23:15] LABS: CREATINE KINASE MB 1.42 ng/mL (<4.55); TROPONIN I 0.022 ng/mL
[2016-04-05 06:34] LABS: ABSOLUTE BASOPHILS # (AUTO) 0.1 10^3/uL (0.0-0.2); ABSOLUTE EOSINOPHILS # (AUTO) 0.3 10^3/uL (0.0-0.6); ABSOLUTE LYMPHOCYTES (AUTO) 1.2 10^3/uL (0.5-4.7); ABSOLUTE MONOCYTES (AUTO) 1.3 10^3/uL (0.1-1.4); BASOPHILS % (AUTO) 0.8 % (0-2); EOSINOPHILS % (AUTO) 2.1 % (0-6); HEMATOCRIT 35.6 % (36.0-47.0); HEMOGLOBIN 11.5 g/dL (12.0-15.5); HGB HCT DIFFERENCE -1.1; MEAN CORPUSCULAR HEMOGLOBIN 27.2 pg (27.0-33.4); MEAN CORPUSCULAR HGB CONC 32.4 g/dL (32.0-36.0); MEAN CORPUSCULAR VOLUME 84 fl (80-97); MONOCYTES % (AUTO) 10.4 % (3-13); RED BLOOD COUNT 4.25 10^6/uL (3.72-5.28); RED CELL DISTRIBUTION WIDTH 15.4 % (11.5-14.0); SEGMENTED NEUTROPHILS % (AUTO) 77.7 % (42-78); WHITE BLOOD COUNT 12.8 10^3/uL (4.0-10.5)
[2016-04-05 06:52] LABS: ANION GAP 10 (5-19); BLOOD UREA NITROGEN 22 mg/dL (7-20); CALCIUM 8.9 mg/dL (8.4-10.2); CARBON DIOXIDE 37 mmol/L (22-30); CHLORIDE 96 mmol/L (98-107); CREATININE RESULT 0.88 mg/dL (0.52-1.25); GLUCOSE 156 mg/dL (75-110); POTASSIUM 4.1 mmol/L (3.6-5.0); SODIUM 143.1 mmol/L (137-145)
[2016-04-05 08:12] VITALS: BP 131/52
[2016-04-05] MEDS: INSULIN LISPRO 100 UNIT/ML 3 ML VIAL SUBCUT PRN (08:21)
--- NOTE | 2016-04-05 09:05 | PDOC DISCHARGE SUMMARY ---
General - Admit/Disc Date/PCP Admission Date/Primary Care Provider: 03/27/16 13:38 MYRIAM OCHOA MD Discharge Date: 04/05/16 - Discharge Diagnosis (1) Acute on chronic respiratory failure with hypoxemia Is this a current diagnosis for this admission?: Yes (2) Pneumonia Is this a current diagnosis for this admission?: Yes (3) Acute UTI Is this a current diagnosis for this admission?: Yes (4) Leukocytosis Is this a current diagnosis for this admission?: Yes (5) COPD (chronic obstructive pulmonary disease) Is this a current diagnosis for this admission?: Yes (6) Chronic combined systolic (congestive) and diastolic (congestive) heart failure Is this a current diagnosis for this admission?: Yes (7) DMII (diabetes mellitus, type 2) Is this a current diagnosis for this admission?: Yes (8) Essential (primary) hypertension Is this a current diagnosis for this admission?: Yes (9) Paroxysmal a-fib Is this a current diagnosis for this admission?: Yes (10) Chest pain Is this a current diagnosis for this admission?: Yes - Additional Information Resuscitation Status: Do Not Resuscitate Discharge Diet: Cardiac, Diabetic Discharge Activity: Activity As Tolerated Home Medications: Acetaminophen [Tylenol] 650 mg PO Q4HP PRN 03/27/16 Albuterol Sulfate [Albuterol Sulfate 2.5mg/3 mL] 2.5 mg IH Q4HP PRN 03/27/16 Amiodarone HCl [Pacerone 100 mg Tablet] 100 mg PO QAM 03/27/16 Amlodipine Besylate [Norvasc 5 mg Tablet] 5 mg PO DAILY 03/27/16 Ascorbic Acid [Vitamin C 500 mg Tablet] 500 mg PO DAILY 03/27/16 Cetirizine HCl [Zyrtec 10 mg Tablet] 10 mg PO DAILY 03/27/16 Cholecalciferol (Vitamin D3) [Vitamin D3] 2,000 units PO DAILY 03/27/16 Digoxin [Digox] 125 mcg PO DAILY 03/27/16 Fluticasone/Salmeterol [Advair 250-50 Diskus 14 Dose/Diskus] 1 puff IH Q12 03/27 Guaifenesin/D-Methorphan Hb [Robitussin-Dm Syrup 10 ml Udcup] 10 ml PO Q4HP PRN 03/27/16 Insulin Glargine,Hum.rec.anlog [Lantus Solostar] 10 units SQ QAM 03/27/16 Lisinopril [Prinivil 10 mg Tablet] 10 mg PO DAILY 03/27/16 Metoprolol Succinate [Toprol Xl 50 mg Tab.sr] 50 mg PO DAILY 03/27/16 Rivaroxaban [Xarelto 15 mg Tablet] 15 mg PO DAILY 03/27/16 Sitagliptin Phos/Metformin HCl [Janumet Xr 100-1,000 mg Tablet] 1 each PO DAILY 03/27/16 Tiotropium Genoa [Spiriva Handihaler 5 Cap/Kit (18 Mcg/Cap)] 1 puff IH DAILY 03/27/16 Torsemide [Demadex 20 mg Tablet] 20 mg PO DAILY 03/27/16 Amiodarone HCl [Cordarone 200 mg Tablet] 100 mg PO DAILY tablet 04/05/16 Cholecalciferol (Vitamin D3) [Vitamin D3 1000 Unit Tablet] 2,000 unit PO DAILY tablet 04/05/16 Digoxin [Lanoxin 0.125 mg Tablet] 0.125 mg PO DAILY tablet 04/05/16 Docusate Sodium [Colace 100 mg Capsule] 100 mg PO BID #60 capsule 04/05/16 Doxycycline Hyclate [Vibramycin 100 mg Tablet] 100 mg PO Q12 #10 tablet Insulin Glargine,Hum.rec.anlog [Lantus Insulin 100 Unit/mL] 10 unit SUBCUT DAILY insuln.pen 04/05/16 Lansoprazole [Prevacid 30 mg Odt Tablet] 30 mg PO BID #60 tab.rap.dr 04/05/16 Linezolid [Zyvox 600 mg Tablet] 600 mg PO Q12 #10 tablet 04/05/16 Magnesium Hydroxide [Milk of Magnesia 30 ml Udcup] 30 ml PO HSP PRN udc Metoprolol Succinate [Toprol Xl 50 mg Tab.sr] 50 mg PO DAILY tab.sr.24h Rivaroxaban [Xarelto 15 mg Tablet] 15 mg PO QHS tablet 04/05/16 Tiotropium Genoa [Spiriva Handihaler 5 Cap/Kit (18 Mcg/Cap)] 1 cap IH DAILY kit 04/05/16 History of Present Illness Patient complains of: Altered mental status/fever History of Present Illness: FAUSTINO SHARIF is a 89 year old female who is a resident of [facility]. She was noted to be confused and febrile by family. She was evaluated by nursing and referred to [facility]'s ER. The ER she was found to have a rectal temperature of 103.2. She has been pancultured, and started on IV broad-spectrum antibiotics. She was found to be mildly hypotensive, and tachycardic. She was given IV fluid bolus. Blood pressure and heart rate have both improved. She is presently awake, alert, and oriented. She is complain also of some severe sore throat, and mildly congested cough. She states the symptoms having been ongoing for last 3 days. She denies any other complaints at the present time. She was found to have positive nitrates in her urinalysis. Her daughter states she does have a history of frequent urinary tract infections. Her daughter, is at bedside. She is patient's medical power of immigration attorney. She states that patient does have a written out of hospital DO NOT RESUSCITATE order. Hospital Course Hospital Course: In summary patient was admitted for altered mental status and fever as a result of pneumonia and urinary tract infection. With regard to pneumonia patient had sputum culture positive for MRSA and Haemophilus influenza. She was initially on IV antibiotics but has now been transitioned to oral Zyvox and oral doxycycline. She is afebrile and stable from a respiratory standpoint at time of discharge. With regard to urinary tract infection, patient grew Escherichia coli sensitive to tetracyclines. Patient is discharged on oral doxycycline as mentioned above. Patient had chest pain related to hiatal hernia and gastroesophageal reflux disease. EKG and cardiac enzymes were negative. Patient was started on Prevacid. From a respiratory standpoint patient has chronic oxygen dependent COPD. She is on home oxygen at baseline. She is on Advair, Spiriva, nebulizer treatments at baseline. Respiratory status is at baseline at time of discharge. Patient has chronic systolic and diastolic heart failure. She has compensated on Demadex 20 mg daily and Toprol-XL 50 mg daily as well as lisinopril. Patient has paroxysmal atrial fibrillation. Heart rate is controlled on digoxin and Toprol-XL. She is on Xarelto for stroke prevention. Physical Exam Vital Signs: Temp Pulse Resp BP Pulse Ox 97.2 F 56 L 18 131/52 H 92 04/05/16 07:22 04/05/16 07:22 04/05/16 07:22 04/05/16 07:22 04/05/16 07:22 Intake & Output 04/04/16 04/05/16 04/06/16 06:59 06:59 06:59 Intake Total 1768 1173 Output Total 100 100 Balance 1668 1073 Weight 92.9 kg 173.7 kg GENERAL: No acute distress HEENT: Conjunctiva clear, nonicteric, moist mucous membranes, no JVD, midline trachea RESPIRATORY: Clear to auscultation bilaterally, no wheezes, no rhonchi CARDIAC: Regular rate and rhythm, no murmurs/gallops/rubs ABDOMEN: Soft, nondistended, nontender, positive bowel sounds, no rebound, no guarding EXTREMETIES: No edema, cyanosis, clubbing NEUROLOGIC: Alert, oriented to person/place/time, CN's grossly intact, no focal deficits SKIN: No rash, wounds PSYCH: Normal mood, normal affect Results Laboratory Results: 04/05/16 06:04 04/05/16 06:04 04/05/16 04/05/16 06:04 06:04 WBC 12.8 H RBC 4.25 Hgb 11.5 L Hct 35.6 L MCV 84 MCH 27.2 MCHC 32.4 RDW 15.4 H Plt Count 407 Seg Neutrophils % 77.7 Lymphocytes % 9.0 L Monocytes % 10.4 Eosinophils % 2.1 Basophils % 0.8 Absolute Neutrophils 10.0 H Absolute Lymphocytes 1.2 Absolute Monocytes 1.3 Absolute Eosinophils 0.3 Absolute Basophils 0.1 Sodium 143.1 Potassium 4.1 Chloride 96 L Carbon Dioxide 37 H Anion Gap 10 BUN 22 H Creatinine 0.88 Est GFR ( Amer) > 60 Est GFR (Non-Af Amer) > 60 Glucose 156 H Calcium 8.9 04/04/16 04/04/16 04/04/16 10:40 10:40 16:50 Creatine Kinase 30 35 CK-MB (CK-2) 1.54 Troponin I 0.019 04/04/16 04/04/16 04/04/16 16:50 22:35 22:35 Creatine Kinase 29 L CK-MB (CK-2) 1.38 1.42 Troponin I 0.023 0.022 03/29/16 18:15 MRSA Surveillance Culture - Final Nasophary (Mrsa Only) NO MRSA RECOVERED 03/27/16 14:38 Blood Culture - Final Blood NO GROWTH IN 5 DAYS 03/27/16 14:02 Throat Culture - Final Throat NORMAL FARIDEH 03/27/16 14:02 Gram Stain - Final Sputum Sputum Culture - Final Mrsa (Meth Resis Staph Aureus) Haemophilus Influenzae Reduced Normal Farideh 03/27/16 11:31 Urine Culture - Final Catheterized Urine Escherichia Coli 03/27/16 11:24 Blood Culture - Final Blood NO GROWTH IN 5 DAYS Impressions: Chest X-Ray 04/04/16 09:42 IMPRESSION: Interval improvement in the bibasilar densities. Cardiomegaly. Other findings as noted above Qualifiers PATEINT BEING DISCHARGED WITH ANY OF THE FOLLOWING DIAGNOSIS?: No Plan Discharge Plan: Follow-up primary care provider. Arrange home health nursing/PT. Continue home oxygen 4 L nasal cannula. Time Spent: Less than 30 Minutes
[2016-04-05] MEDS: DIGOXIN 0.125 MG TABLET PO SCH (09:42)
[2016-04-05] MEDS: DOXYCYCLINE HYCLATE 100 MG TABLET PO SCH (09:42)
[2016-04-05] MEDS: TORSEMIDE 20 MG TABLET PO SCH (09:42)
[2016-04-05] MEDS: LINEZOLID 600 MG TABLET PO SCH (09:42)
[2016-04-05] MEDS: CETIRIZINE 10 MG TABLET PO SCH (09:42)
[2016-04-05] MEDS: SITAGLIPTIN PHOSPHATE 50 MG TABLET PO SCH (09:43)
[2016-04-05] MEDS: INSULIN GLARGINE,HUM.REC.ANLOG 300 UNIT/3 ML INSULN.PEN SUBCUT SCH (09:43)
[2016-04-05] MEDS: FLUTICASONE/SALMETEROL DISKUS 250-50 MCG/DOSE IH SCH (09:43)
[2016-04-05] MEDS: AMIODARONE HCL 200 MG TABLET PO SCH (09:43)
[2016-04-05] MEDS: DOCUSATE SODIUM 100 MG CAPSULE PO SCH (09:43)
[2016-04-05] MEDS: GUAIFENESIN 600 MG TABLET.SA PO SCH (09:43)
[2016-04-05] MEDS: NYSTATIN/DEXAMETH/DIPHEN SUSP 120 ML PO SCH (09:43)
[2016-04-05] MEDS: CHOLECALCIFEROL (D3) 1,000 UNIT TABLET PO SCH (09:43)
[2016-04-05] MEDS: LANSOPRAZOLE 30 MG TAB.RAP.DR PO SCH (09:43)
[2016-04-05] MEDS: AMLODIPINE BESYLATE 5 MG TABLET PO SCH (09:43)
[2016-04-05] MEDS: METOPROLOL SUCCINATE 50 MG TAB.SR.24H PO SCH (09:43)
[2016-04-05] MEDS: ACETAMINOPHEN 325 MG TABLET PO PRN (10:00)
[2016-04-05] MEDS: TIOTROPIUM BROMIDE DPI 5 CAP/KIT (18 MCG/CAP) IH SCH (12:13)
== END 2016-04-05 12:21 | disposition home health service (06) | DRG 177 ==
LOC: ER 11:03 → EH 13:38 → UNDOADMIN 14:09 → 4N 21:43
PROVIDERS: ADMIT Internal Medicine; ATTEND Internal Medicine
DX: J15.212 Pneumonia due to Methicillin resistant Staphylococcus aureus (principal); J96.22 Acute and chronic respiratory failure with hypercapnia; J96.21 Acute and chronic respiratory failure with hypoxia; N39.0 Urinary tract infection, site not specified; Z66 Do not resuscitate; I50.42 Chronic combined systolic (congestive) and diastolic (congestive) heart failure; N17.9 Acute kidney failure, unspecified; B37.0 Candidal stomatitis; B37.81 Candidal esophagitis; Z68.44 Body mass index [BMI] 60.0-69.9, adult; J14 Pneumonia due to Hemophilus influenzae; J44.9 Chronic obstructive pulmonary disease, unspecified; E78.5 Hyperlipidemia, unspecified; J45.909 Unspecified asthma, uncomplicated; E11.9 Type 2 diabetes mellitus without complications; K21.9 Gastro-esophageal reflux disease without esophagitis; I48.0 Paroxysmal atrial fibrillation; E86.0 Dehydration; B96.20 Unspecified Escherichia coli [E. coli] as the cause of diseases classified elsewhere; R07.9 Chest pain, unspecified; M19.90 Unspecified osteoarthritis, unspecified site; G47.30 Sleep apnea, unspecified; E66.9 Obesity, unspecified; Z79.4 Long term (current) use of insulin; Z79.01 Long term (current) use of anticoagulants; Z79.84 Long term (current) use of oral hypoglycemic drugs; Z79.51 Long term (current) use of inhaled steroids; Z99.81 Dependence on supplemental oxygen
CPT/HCPCS: 36415; 36600; 51701; 71010; 80048; 80053; 80202; 81001; 82550; 82553; 82565; 82803; 82962; 83605; 83735; 84484; 85025; 85610; 87040; 87070; 87077; 87086; 87088; 87186; 87205; 87804; 87880; 93005; 93010; 94640; 94660; 94667; 94668; 96365; 99291; J0696; J1815; J1940; J2020; J2543; J3370; J3490; J7030; J7060; J7620

== ENCOUNTER → 2016-04-26 | Outpatient (CLI) | payer MEDICARE | LOC: OD 12:31 | PROVIDERS: ATTEND Internal Medicine | DX: J44.9 Chronic obstructive pulmonary disease, unspecified (principal); R06.09 Other forms of dyspnea | CPT/HCPCS: 71020 ==

== ENCOUNTER 2016-05-08 06:36 | Inpatient (IN) | payer MEDICARE ==
[2016-05-08 07:05] LABS: HEMATOCRIT 40.4 % (36.0-47.0); HEMOGLOBIN 12.7 g/dL (12.0-15.5); HGB HCT DIFFERENCE -2.3; MEAN CORPUSCULAR HEMOGLOBIN 26.9 pg (27.0-33.4); MEAN CORPUSCULAR HGB CONC 31.4 g/dL (32.0-36.0); MEAN CORPUSCULAR VOLUME 86 fl (80-97); RED BLOOD COUNT 4.72 10^6/uL (3.72-5.28); RED CELL DISTRIBUTION WIDTH 18.7 % (11.5-14.0); WHITE BLOOD COUNT 20.1 10^3/uL (4.0-10.5)
[2016-05-08] MEDS ORDERED: FUROSEMIDE INJ/PF 40 MG/4 ML SDV IV ONE (07:05)
[2016-05-08] MEDS ORDERED: METHYLPREDNISOLONE INJ 125 MG/2 ML SDV IV ONE (07:05)
[2016-05-08] MEDS ORDERED: IPRATROPIUM/ALBUTEROL 0.5-2.5 MG/3 ML AMPUL NEB ONE (07:05)
--- NOTE | 2016-05-08 07:13 | ER Document Report ---
ED General - General Chief Complaint: Breathing Difficulty Stated Complaint: DIFFICULTY BREATHING Time seen by provider: 06:45 Mode of Arrival: Medic Information source: Patient Notes: 89-year-old female 2 day history of worsening shortness of breath dyspnea on exertion and orthopnea and cough which she says she thinks is productive but doesn't know what she is coughing up. She also reports subjective fever. She reports admission in March with similar complaints she was admitted with congestive heart failure COPD and pneumonia. She arrives with up-to-date outpatient DO NOT RESUSCITATE paperwork. She reports her breathing feels bad again like it was on her last admission. She reports pain all over but no specific chest pain, abdominal pain, back pain. He reports chronic swelling the lower extremities but doesn't think is any worse than her baseline. She denies any new numbness or weakness to any extremity. Primary care physician . Oxygen saturation 54% in the field improving 71% on CPAP. Patient reports using oxygen 3 L nasal cannula at home Physical Exam: General: Alert, appears comfortable on BiPAP. HEENT: Normocephalic. Atraumatic. PERRLA. Extraocular movements intact. Oropharynx clear. Neck: Supple. Non-tender. Respiratory: Tachypnea Diminished aeration throughout all lung [place] with absent breath sounds both bases scattered rhonchi bilaterally. Cardiovascular: Regular rate and rhythm. Abdominal: Normal Inspection. Soft, non-tender. No distension. Normal Bowel Sounds. Back: Non-tender. No deformity or step off. Upper extremities warm to plus pulses of cyanosis no edema Lower extremities warm to plus pulses 2+ edema from knees down bilaterally no Homans sign bilaterally Neurological: Speech clear mentation normal extract puller strength 5 out of 5 equal both upper extremities motor function 5 out of 5 equal both lower extremities Psychological: Normal affect. Normal Mood. Skin: Warm. Dry. Normal color. TRAVEL OUTSIDE OF THE [place] IN LAST 30 DAYS: No - Related Data Allergies/Adverse Reactions: azithromycin [Azithromycin] Allergy (Verified 03/06/15 14:12) Past Medical History - Social History Smoking Status: Former Smoker Family History: Hyperlipidemia, Hypertension - Past Medical History Cardiac Medical History: Reports: Hx Atrial Fibrillation, Hx Congestive Heart Failure, Hx Hypercholesterolemia, Hx Hypertension Pulmonary Medical History: Reports: Hx Asthma, Hx Bronchitis, Hx COPD, Hx Pneumonia, Hx Sleep Apnea Endocrine Medical History: Reports: Hx Diabetes Mellitus Type 2 GI Medical History: Reports: Hx Gastroesophageal Reflux Disease Musculoskeltal Medical History: Reports Hx Arthritis Traumatic Medical History: Reports: Hx Fractures Past Surgical History: Reports: Hx Appendectomy, Hx Herniorrhaphy, Hx Hysterectomy, Hx Orthopedic Surgery - Immunizations Hx Diphtheria, Pertussis, Tetanus Vaccination: No Hx Pneumococcal Vaccination: 02/25/09 Review of Systems - Review of Systems Constitutional: See HPI. denies: Chills EENT: denies: Ear pain, Throat pain Cardiovascular: Dyspnea Respiratory: Cough, Short of breath Gastrointestinal: denies: Abdominal pain, Diarrhea, Nausea, Vomiting, Blood in vomit, Black stools, Rectal bleeding Genitourinary: denies: Burning, Dysuria Female Genitourinary: Post menopausal Musculoskeletal: Leg swelling. denies: Back pain Skin: denies: Rash Hematologic/Lymphatic: denies: Swollen glands Neurological/Psychological: denies: Weakness, Numbness Physical Exam - Vital signs Vitals: Resp Pulse Ox 36 H 100 05/08/16 06:40 05/08/16 06:40 Course - Re-evaluation Re-evalutation: 05/08/16 09:28 Patient's oxygenation is improved on BiPAP but she is not a candidate for outpatient treatment. She is been treated with IV Lasix for congestive heart failure however believe that the predominant etiology of her difficulty breathing. She is also receiving IV steroids and a treatments possible exacerbation COPD. Discussed case with Dr. Jose of the hospitalist service who will be coming to see the patient - Vital Signs Vital signs: Temp Pulse Resp BP Pulse Ox 97.9 F 17 123/53 L 99 05/08/16 06:45 05/08/16 07:52 05/08/16 07:52 05/08/16 07:52 - Laboratory Result Diagrams: 05/08/16 06:44 05/08/16 06:44 Laboratory results interpreted by me: 05/08/16 05/08/16 05/08/16 06:44 06:44 06:44 WBC 20.1 H MCH 26.9 L MCHC 31.4 L RDW 18.7 H Lymphocytes % (Manual) 7 L Abs Neuts (Manual) 15.1 H Abs Monocytes (Manual) 2.2 H Carbon Dioxide 31 H BUN 27 H Creatinine 1.30 H Est GFR ( Amer) 47 L Est GFR (Non-Af Amer) 39 L Glucose 220 H AST 41 H NT-Pro-B Natriuret Pep 2970 H - Diagnostic Test Radiology reviewed: Image reviewed, Reports reviewed - EKG Interpretation by Me Additional EKG results interpreted by me: 05/08/16 07:15 EKG reviewed by myself shows sinus rhythm at 69 nonspecific interventricular conduction No change compared to 04/04/2016 Discharge - Discharge Clinical Impression: Acute hypoxemic respiratory failure, Chronic obstructive pulmonary disease with acute exacerbation Acute congestive heart failure Qualifiers: Congestive heart failure type: unspecified congestive heart failure type Qualified Code(s): I50.9 - Heart failure, unspecified Condition: Fair Disposition: ADMITTED INPATIENT Admitting Provider: Hospitalist Unit Admitted: [facility]
[2016-05-08 07:22] LABS: ALANINE AMINOTRANSFERASE 44 U/L (9-52); ALBUMIN 4.4 g/dL (3.5-5.0); ALKALINE PHOSPHATASE 66 U/L (38-126); ANION GAP 13 (5-19); ASPARTATE AMINO TRANSFERASE 41 U/L (14-36); BILIRUBIN,TOTAL 0.8 mg/dL (0.2-1.3); BLOOD UREA NITROGEN 27 mg/dL (7-20); CARBON DIOXIDE 31 mmol/L (22-30); CHLORIDE 101 mmol/L (98-107); CREATINE KINASE 44 U/L (30-135); GLUCOSE 220 mg/dL (75-110); POTASSIUM 4.7 mmol/L (3.6-5.0); SODIUM 144.8 mmol/L (137-145); TOTAL PROTEIN 8.2 g/dL (6.3-8.2)
[2016-05-08 07:26] LABS: BASOPHILS % (MANUAL) 0 % (0-2); EOSINOPHILS % (MANUAL) 1 % (0-6); LYMPHOCYTES % (MANUAL) 7 % (13-45); TOTAL CELLS COUNTED 100
[2016-05-08 07:27] LABS: ANISOCYTOSIS 1+; POLYCHROMASIA SLIGHT; TOXIC GRANULATION SLIGHT; TOXIC VACUOLATION PRESENT
[2016-05-08 07:30] LABS: CREATINE KINASE MB 1.64 ng/mL (<4.55)
[2016-05-08 07:34] LABS: TROPONIN I 0.013 ng/mL
[2016-05-08] MEDS ORDERED: ACETAMINOPHEN 325 MG TABLET PO PRN (09:41)
[2016-05-08] MEDS ORDERED: ONDANSETRON HCL INJ/PF 4 MG/2 ML SDV IV PRN (09:41)
[2016-05-08] MEDS ORDERED: ONDANSETRON 4 MG TAB.RAPDIS PO PRN (09:41)
[2016-05-08] MEDS ORDERED: DEXTROSE 40% GEL 15 GM TUBE PO PRN ×2 (09:47)
[2016-05-08] MEDS ORDERED: GLUCAGON,HUMAN RECOMB 1 MG INJ IM PRN (09:47)
[2016-05-08] MEDS ORDERED: DEXTROSE 50%-WATER 25 GM/50 ML DISP.SYRIN IV PRN ×2 (09:47)
[2016-05-08 10:16] LABS: ARTERIAL BLOOD BASE EXCESS 2.3 mmol/L; ARTERIAL BLOOD O2 SATURATION 97.4 % (94-98)
[2016-05-08 10:27] LABS: APPEARANCE,URINE CLEAR; BILIRUBIN,URINE NEGATIVE (NEGATIVE); GLUCOSE, URINE NEGATIVE (NEGATIVE); KETONES,URINE NEGATIVE (NEGATIVE); LEUKOCYTE ESTERASE,URINE NEGATIVE (NEGATIVE); NITRITE,URINE NEGATIVE (NEGATIVE); PROTEIN,URINE 100 mg/dL (NEGATIVE); URINE SPECIFIC GRAVITY 1.009; UROBILINOGEN,URINE NEGATIVE mg/dL (<2.0)
[2016-05-08] MEDS: METHYLPREDNISOLONE INJ 40 MG/1 ML SDV IV SCH ×2 (10:42→21:51)
[2016-05-08] MEDS: FUROSEMIDE INJ/PF 40 MG/4 ML SDV IV SCH ×2 (10:42→21:51)
[2016-05-08] MEDS ORDERED: LEVOFLOXACIN 750 MG/D5W RTU 750 MG/150 ML RTUPB IV ONE (11:00)
--- NOTE | 2016-05-08 11:55 | PDOC H&P ---
History of Present Illness Admission Date/PCP: 05/08/16 09:42 MYRIAM OCHOA MD Patient complains of: Shortness of breath History of Present Illness: FAUSTINO SHARIF is a 89 year old female who is resident at [facility] assisted-living who presents with an acute COPD exacerbation. The patient reports that over the last week she's had worsening shortness of breath as well as a nonproductive cough. Patient was seen by her toolman this week and started on antibiotics. Patient has continued to have worsening shortness of breath but denies any fevers or chills. She also has had orthopnea and PND but denies any chest pain. Patient is normally on oxygen 3 L per nasal cannula at home. Past Medical History Cardiac Medical History: Reports: Atrial Fibrillation, Congestive Heart Failure - Both systolic and diastolic congestive heart failure, Hyperlipidema, Hypertension Pulmonary Medical History: Reports: Asthma, Bronchitis, Chronic Obstructive Pulmonary Disease (COPD), Pneumonia, Sleep Apnea Endocrine Medical History: Reports: Diabetes Mellitus Type 2 Malignancy Medical History: Reports: None GI Medical History: Reports: Gastroesophageal Reflux Disease Musculoskeltal Medical History: Reports: Arthritis Skin Medical History: Reports: None Psychiatric Medical History: Reports: None Traumatic Medical History: Reports: None Hematology: Denies: Anemia, Hemophilia, Sickle Cell Disease Past Surgical History Past Surgical History: Reports: Appendectomy, Herniorrhaphy, Hysterectomy, Orthopedic Surgery - Bilateral total knee replacements Denies: Amputation Social History Information Source: Patient Lives with: Other - Assisted-living Smoking Status: Former Smoker Frequency of Alcohol Use: None Hx Recreational Drug Use: No Drugs: None Hx Prescription Drug Abuse: No - Advance Directive Resuscitation Status: Do Not Resuscitate - The patient's children are at the bedside and agree Surrogate healthcare decision maker:: Her children Family History Family History: Hyperlipidemia, Hypertension Family History: Mother in her 60s from cancer. Father at age 89 with COPD and coronary artery disease. Parental Family History Reviewed: Yes Children Family History Reviewed: No Sibling(s) Family History Reviewed.: No Medication/Allergy Allergies/Adverse Reactions: azithromycin [Azithromycin] Allergy (Verified 03/06/15 14:12) Review of Systems Constitutional: ABSENT: chills, fever(s), headache(s), weight gain, weight loss Eyes: ABSENT: visual disturbances Ears: ABSENT: hearing changes Cardiovascular: PRESENT: dyspnea on exertion, orthropnea. ABSENT: chest pain, edema, palpitations Respiratory: PRESENT: as per HPI Gastrointestinal: ABSENT: abdominal pain, constipation, diarrhea, hematemesis, hematochezia, nausea, vomiting Genitourinary: ABSENT: dysuria, hematuria Integumentary: ABSENT: rash, wounds Neurological: ABSENT: abnormal gait, abnormal speech, confusion, dizziness, focal weakness, syncope Psychiatric: ABSENT: anxiety, depression Endocrine: ABSENT: cold intolerance, heat intolerance, polydipsia, polyuria Hematologic/Lymphatic: ABSENT: easy bleeding, easy bruising Physical Exam Vital Signs: Temp Pulse Resp BP Pulse Ox 97.9 F 23 H 114/84 92 05/08/16 06:45 05/08/16 09:48 05/08/16 09:48 05/08/16 10:05 General appearance: PRESENT: mild distress, well-developed, well-nourished Head exam: PRESENT: atraumatic, normocephalic Eye exam: PRESENT: conjunctiva pink, EOMI, PERRLA. ABSENT: scleral icterus Ear exam: PRESENT: normal external ear exam Neck exam: ABSENT: carotid bruit, JVD, lymphadenopathy, thyromegaly Respiratory exam: PRESENT: rhonchi - Coarse rhonchi in the right upper lobe, wheezes - Bilateral respiratory wheezes.. ABSENT: rales Cardiovascular exam: PRESENT: tachycardia. ABSENT: diastolic murmur, rubs, systolic murmur Pulses: PRESENT: normal dorsalis pedis pul GI/Abdominal exam: PRESENT: normal bowel sounds, soft. ABSENT: distended, guarding, mass, organolmegaly, rebound, tenderness Rectal exam: PRESENT: deferred Extremities exam: ABSENT: calf tenderness, clubbing, pedal edema Neurological exam: PRESENT: alert, awake, oriented to person, oriented to place , oriented to time, oriented to situation, CN II-XII grossly intact. ABSENT: motor sensory deficit Psychiatric exam: PRESENT: appropriate affect Skin exam: PRESENT: dry, intact, warm. ABSENT: cyanosis, rash Results Laboratory Results: 05/08/16 10:11 Urine Color YELLOW Urine Appearance CLEAR Urine pH 5.0 Ur Specific [place] 1.009 Urine Protein 100 H Urine Glucose (UA) NEGATIVE Urine Ketones NEGATIVE Urine Blood NEGATIVE Urine Nitrite NEGATIVE Ur Leukocyte Esterase NEGATIVE Urine WBC (Auto) 3 Urine RBC (Auto) 1 Impressions: Chest X-Ray 05/08/16 06:38 IMPRESSION: Bilateral parahilar airspace disease worrisome for edema Stable small bilateral pleural effusions with bibasilar consolidation atelectasis versus pneumonia similar compared to multiple previous studies Assessment & Plan - Diagnosis (1) Acute respiratory failure Is this a current diagnosis for this admission?: YesPlan: Respiratory failure is multifactorial including acute COPD exacerbation, acute on chronic congestive heart failure, and possible early pneumonia. We'll continue the BiPAP and cover with IV steroids, nebulizers and diuretics. (2) COPD with acute exacerbation Is this a current diagnosis for this admission?: YesPlan: We'll give IV steroids, nebulizers and antibiotics. 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 We'll give IV Lasix. (4) Pneumonia Qualifiers: Pneumonia type: due to methicillin-resistant Staphylococcus aureus (MRSA) Laterality: bilateral Lung location: lower lobe of lung Qualified Code(s): J15.212 - Pneumonia due to Methicillin resistant Staphylococcus aureus Is this a current diagnosis for this admission?: YesPlan: The patient does not have obvious pneumonia on chest x-ray however clinically it sounds she has right upper lobe pneumonia. We'll treat with Zyvox and Levaquin. Will check sputum cultures. (5) Paroxysmal a-fib Is this a current diagnosis for this admission?: YesPlan: Patient is in a regular rhythm currently. (6) Essential (primary) hypertension Is this a current diagnosis for this admission?: Yes (7) DMII (diabetes mellitus, type 2) Qualifiers: Diabetes mellitus complication status: without complication Diabetes mellitus [employer] insulin use: with care home use Qualified Code(s): E11.9 - Type 2 diabetes mellitus without complications Is this a current diagnosis for this admission?: YesPlan: We'll cover with sliding scale insulin. (8) DVT prophylaxis Is this a current diagnosis for this admission?: YesPlan: We'll cover with Lovenox - Time Time Spent: 50 to 70 Minutes - Inpatient Certification Medical Necessity: Need Close Monitoring Due to Risk of Patient Decompensation, Need for IV Antibiotics - Plan Summary Plan Summary: We'll continue with IV antibiotics and BiPAP. We'll make a regular admission as I anticipate this will require greater than a 2 midnight hospital stay.
[2016-05-08] MEDS ORDERED: LINEZOLID 600 MG RTU 300 ML IV ONE (12:00)
--- NOTE | 2016-05-08 17:23 | EKG REPORT ---
SEVERITY:- ABNORMAL ECG - SINUS RHYTHM NONSPECIFIC INTRAVENTRICULAR CONDUCTION DELAY LATERAL INFARCT, OLD : Confirmed by: Madelyn Stack MD 08-May-2016 17:23:18
[2016-05-08] MEDS: INSULIN LISPRO 100 UNIT/ML 3 ML VIAL SUBCUT PRN (18:53)
[2016-05-08] MEDS: ALBUTEROL SULFATE 0.083% NEB 2.5 MG/3 ML AMPUL NEB PRN (21:13)
[2016-05-08] MEDS: LINEZOLID 300 ML IV SCH (21:51)
[2016-05-09 06:05] LABS: MEAN CORPUSCULAR VOLUME 84 fl (80-97)
[2016-05-09 06:11] LABS: HGB HCT DIFFERENCE -1.2; MEAN CORPUSCULAR HEMOGLOBIN 26.8 pg (27.0-33.4); MEAN CORPUSCULAR HGB CONC 32.1 g/dL (32.0-36.0); RED BLOOD COUNT 3.95 10^6/uL (3.72-5.28); RED CELL DISTRIBUTION WIDTH 17.9 % (11.5-14.0); WHITE BLOOD COUNT 11.4 10^3/uL (4.0-10.5)
[2016-05-09 06:13] LABS: HEMOGLOBIN 10.6 g/dL (12.0-15.5)
[2016-05-09 06:32] LABS: ANION GAP 10 (5-19); BLOOD UREA NITROGEN 34 mg/dL (7-20); CALCIUM 8.9 mg/dL (8.4-10.2); CARBON DIOXIDE 29 mmol/L (22-30); CHLORIDE 101 mmol/L (98-107); CREATININE RESULT 1.23 mg/dL (0.52-1.25); GLUCOSE 251 mg/dL (75-110); MAGNESIUM 1.8 mg/dL (1.6-2.3); POTASSIUM 5.2 mmol/L (3.6-5.0); SODIUM 140.1 mmol/L (137-145)
[2016-05-09] MEDS: INSULIN LISPRO 100 UNIT/ML 3 ML VIAL SUBCUT PRN ×4 (07:47→22:15)
[2016-05-09] MEDS ORDERED: ENOXAPARIN SODIUM INJ 40 MG/0.4 ML DISP.SYRIN SUBCUT SCH (08:00)
[2016-05-09] MEDS: LINEZOLID 300 ML IV SCH ×2 (09:48→22:14)
[2016-05-09] MEDS: METHYLPREDNISOLONE INJ 40 MG/1 ML SDV IV SCH ×2 (09:51→22:15)
[2016-05-09] MEDS: FUROSEMIDE INJ/PF 40 MG/4 ML SDV IV SCH ×2 (09:51→22:14)
[2016-05-09] MEDS ORDERED: GUAIFENESIN/D-METHORPHAN (200-20 MG) SYRUP 10 ML PO PRN (11:27)
--- NOTE | 2016-05-09 12:18 | PDOC PROGRESS REPORT ---
Subjective Progress Note for:: 05/09/16 Subjective:: Patient feels much less short of breath. Physical Exam Vital Signs: Temp Pulse Resp BP Pulse Ox 98.0 F 69 19 140/47 H 96 05/09/16 07:57 05/09/16 07:57 05/09/16 07:57 05/09/16 07:57 05/09/16 07:57 Intake & Output 05/08/16 05/09/16 05/10/16 06:59 06:59 06:59 Intake Total 325 Output Total 1500 Balance -1175 Weight 83.2 kg General appearance: PRESENT: no acute distress Eye exam: PRESENT: conjunctiva pink. ABSENT: scleral icterus Mouth exam: PRESENT: moist, tongue midline Neck exam: ABSENT: JVD Respiratory exam: PRESENT: wheezes - Scattered expiratory wheezes bilaterally.. ABSENT: rales, rhonchi Cardiovascular exam: PRESENT: RRR. ABSENT: diastolic murmur, rubs, systolic murmur GI/Abdominal exam: PRESENT: normal bowel sounds, soft. ABSENT: distended, guarding, mass, organolmegaly, rebound, tenderness Extremities exam: ABSENT: calf tenderness, clubbing, pedal edema Neurological exam: PRESENT: alert, awake, oriented to person, oriented to place , oriented to time, oriented to situation, CN II-XII grossly intact. ABSENT: motor sensory deficit Psychiatric exam: PRESENT: appropriate affect Skin exam: PRESENT: dry, intact, warm. ABSENT: cyanosis, rash Results Laboratory Results: 05/09/16 05:21 05/09/16 05:21 05/09/16 05/09/16 05:21 05:21 WBC 11.4 H RBC 3.95 Hgb 10.6 L D Hct 33.0 L MCV 84 MCH 26.8 L MCHC 32.1 RDW 17.9 H Plt Count 301 Sodium 140.1 Potassium 5.2 H Chloride 101 Carbon Dioxide 29 Anion Gap 10 BUN 34 H Creatinine 1.23 Est GFR ( Amer) 50 L Est GFR (Non-Af Amer) 41 L Glucose 251 H Calcium 8.9 Magnesium 1.8 Impressions: Chest X-Ray 05/08/16 06:38 IMPRESSION: Bilateral parahilar airspace disease worrisome for edema Stable small bilateral pleural effusions with bibasilar consolidation atelectasis versus pneumonia similar compared to multiple previous studies Assessment & Plan - Diagnosis (1) Acute respiratory failure Is this a current diagnosis for this admission?: YesPlan: Respiratory failure is multifactorial including acute COPD exacerbation, acute on chronic congestive heart failure, and possible early pneumonia. She has improved greatly overnight. We'll continue with the BiPAP as needed, nebulizers and diuretics. (2) COPD with acute exacerbation Is this a current diagnosis for this admission?: YesPlan: We'll give IV steroids, nebulizers and antibiotics. 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 We'll give IV Lasix. (4) Pneumonia Qualifiers: Pneumonia type: due to methicillin-resistant Staphylococcus aureus (MRSA) Laterality: bilateral Lung location: lower lobe of lung Qualified Code(s): J15.212 - Pneumonia due to Methicillin resistant Staphylococcus aureus Is this a current diagnosis for this admission?: YesPlan: The patient does not have obvious pneumonia on chest x-ray however clinically it sounds she has right upper lobe pneumonia. We'll treat with Zyvox and Levaquin. Will check sputum cultures. (5) Paroxysmal a-fib Is this a current diagnosis for this admission?: YesPlan: Patient is in a regular rhythm currently. (6) Essential (primary) hypertension Is this a current diagnosis for this admission?: Yes (7) DMII (diabetes mellitus, type 2) Qualifiers: Diabetes mellitus complication status: without complication Diabetes mellitus [facility] insulin use: with [facility] use Qualified Code(s): E11.9 - Type 2 diabetes mellitus without complications Is this a current diagnosis for this admission?: YesPlan: We'll cover with sliding scale insulin. (8) DVT prophylaxis Is this a current diagnosis for this admission?: YesPlan: We'll cover with Lovenox - Time Time Spent with patient: 25-34 minutes - Inpatient Certification Medical Necessity: Need Close Monitoring Due to Risk of Patient Decompensation, Need for IV Antibiotics
[2016-05-09] MEDS: DIGOXIN 0.125 MG TABLET PO SCH (12:53)
[2016-05-09] MEDS: RIVAROXABAN 15 MG TABLET PO SCH (16:48)
[2016-05-09] MEDS: NYSTATIN CREAM 15 GM TP SCH (18:30)
[2016-05-09] MEDS: ALBUTEROL SULFATE 0.083% NEB 2.5 MG/3 ML AMPUL NEB PRN (20:29)
[2016-05-09] MEDS: FLUTICASONE/SALMETEROL DISKUS 250-50 MCG/DOSE IH SCH (22:15)
[2016-05-09] MEDS: CETIRIZINE 10 MG TABLET PO SCH (22:16)
[2016-05-10 05:31] LABS: HEMATOCRIT 34.4 % (36.0-47.0); HEMOGLOBIN 11.1 g/dL (12.0-15.5); HGB HCT DIFFERENCE -1.1; MEAN CORPUSCULAR HEMOGLOBIN 26.9 pg (27.0-33.4); MEAN CORPUSCULAR HGB CONC 32.2 g/dL (32.0-36.0); MEAN CORPUSCULAR VOLUME 84 fl (80-97); RED BLOOD COUNT 4.12 10^6/uL (3.72-5.28); RED CELL DISTRIBUTION WIDTH 17.9 % (11.5-14.0); WHITE BLOOD COUNT 13.3 10^3/uL (4.0-10.5)
[2016-05-10 05:48] LABS: ANION GAP 12 (5-19); BLOOD UREA NITROGEN 40 mg/dL (7-20); CALCIUM 9.3 mg/dL (8.4-10.2); CARBON DIOXIDE 32 mmol/L (22-30); CHLORIDE 97 mmol/L (98-107); CREATININE RESULT 1.06 mg/dL (0.52-1.25); GLUCOSE 280 mg/dL (75-110); POTASSIUM 5.1 mmol/L (3.6-5.0); SODIUM 140.7 mmol/L (137-145)
[2016-05-10] MEDS: AMIODARONE HCL 200 MG TABLET PO SCH (06:12)
[2016-05-10 06:22] LABS: BAND NEUTROPHILS % (MANUAL) 1 % (3-5); BASOPHILS % (MANUAL) 0 % (0-2); EOSINOPHILS % (MANUAL) 0 % (0-6); LYMPHOCYTES % (MANUAL) 1 % (13-45); TOTAL CELLS COUNTED 100
[2016-05-10 06:24] LABS: ANISOCYTOSIS 1+; HYPOCHROMASIA SLIGHT; OVALOCYTES SLIGHT; POIKILOCYTOSIS SLIGHT; POLYCHROMASIA SLIGHT; SCHISTOCYTES SLIGHT; STOMATOCYTES SLIGHT; TOXIC GRANULATION SLIGHT
[2016-05-10] MEDS ORDERED: (PENDING PHARMACY ID) (Amiodarone Hcl [Pacerone 100 Mg Tablet] 100 MG) PO SCH (06:30)
[2016-05-10] MEDS: INSULIN GLARGINE,HUM.REC.ANLOG 300 UNIT/3 ML INSULN.PEN SUBCUT SCH (06:31)
[2016-05-10] MEDS: LANSOPRAZOLE 30 MG TAB.RAP.DR PO SCH (06:32)
[2016-05-10] MEDS ORDERED: (PENDING PHARMACY ID) (Cholecalciferol (Vitamin D3) [Vitamin D3 2000 Unit Tablet] 2,000 UN PO SCH (08:00)
[2016-05-10] MEDS: ALBUTEROL SULFATE 0.083% NEB 2.5 MG/3 ML AMPUL NEB PRN ×2 (09:06→21:00)
[2016-05-10] MEDS: LISINOPRIL 10 MG TABLET PO SCH (09:30)
[2016-05-10] MEDS: AMLODIPINE BESYLATE 5 MG TABLET PO SCH (09:30)
[2016-05-10] MEDS: ASCORBIC ACID 500 MG TABLET PO SCH (09:31)
[2016-05-10] MEDS: CHOLECALCIFEROL (D3) 1,000 UNIT TABLET PO SCH (09:31)
[2016-05-10] MEDS: FLUTICASONE/SALMETEROL DISKUS 250-50 MCG/DOSE IH SCH ×2 (09:32→22:20)
[2016-05-10] MEDS: TIOTROPIUM BROMIDE DPI 5 CAP/KIT (18 MCG/CAP) IH SCH (09:33)
[2016-05-10] MEDS: FUROSEMIDE INJ/PF 40 MG/4 ML SDV IV SCH (09:34)
[2016-05-10] MEDS: METHYLPREDNISOLONE INJ 40 MG/1 ML SDV IV SCH (09:34)
[2016-05-10] MEDS: INSULIN LISPRO 100 UNIT/ML 3 ML VIAL SUBCUT PRN ×4 (09:38→22:20)
[2016-05-10] MEDS: METOPROLOL SUCCINATE 50 MG TAB.SR.24H PO SCH (09:56)
[2016-05-10] MEDS: NYSTATIN CREAM 15 GM TP SCH ×2 (09:56→17:44)
[2016-05-10] MEDS ORDERED: PREDNISONE 20 MG TABLET PO SCH (10:00)
[2016-05-10] MEDS ORDERED: LEVOFLOXACIN 750 MG/D5W RTU 750 MG/150 ML RTUPB IV SCH (10:00)
[2016-05-10] MEDS ORDERED: PREDNISONE 20 MG TABLET PO ONE (11:00)
--- NOTE | 2016-05-10 12:34 | PDOC PROGRESS REPORT ---
Subjective Progress Note for:: 05/10/16 Subjective:: Denies any complaints. Physical Exam Vital Signs: Temp Pulse Resp BP Pulse Ox 97.6 F 68 18 159/67 H 98 05/10/16 07:51 05/10/16 09:06 05/10/16 09:06 05/10/16 07:51 05/10/16 09:06 Intake & Output 05/09/16 05/10/16 05/11/16 06:59 06:59 06:59 Intake Total 325 1903 Output Total 1500 2950 Balance -1175 -1047 Weight 83.2 kg 83.5 kg General appearance: PRESENT: no acute distress Eye exam: PRESENT: conjunctiva pink. ABSENT: scleral icterus Mouth exam: PRESENT: moist, tongue midline Neck exam: ABSENT: carotid bruit, JVD, lymphadenopathy, thyromegaly Respiratory exam: PRESENT: clear to auscultation emelyn. ABSENT: rales, rhonchi, wheezes Cardiovascular exam: PRESENT: RRR. ABSENT: diastolic murmur, rubs, systolic murmur GI/Abdominal exam: PRESENT: normal bowel sounds, soft. ABSENT: distended, guarding, mass, organolmegaly, rebound, tenderness Extremities exam: ABSENT: calf tenderness, clubbing, pedal edema Neurological exam: PRESENT: alert, awake, oriented to person, oriented to place , oriented to time, oriented to situation, CN II-XII grossly intact. ABSENT: motor sensory deficit Psychiatric exam: PRESENT: appropriate affect Skin exam: PRESENT: dry, intact, warm. ABSENT: cyanosis, rash Results Laboratory Results: 05/10/16 05:19 05/10/16 05:19 05/10/16 05/10/16 05:19 05:19 WBC 13.3 H RBC 4.12 Hgb 11.1 L Hct 34.4 L MCV 84 MCH 26.9 L MCHC 32.2 RDW 17.9 H Plt Count 332 Seg Neutrophils % Not Reportable Lymphocytes % Not Reportable Monocytes % Not Reportable Eosinophils % Not Reportable Basophils % Not Reportable Absolute Neutrophils Not Reportable Absolute Lymphocytes Not Reportable Absolute Monocytes Not Reportable Absolute Eosinophils Not Reportable Absolute Basophils Not Reportable Sodium 140.7 Potassium 5.1 H Chloride 97 L Carbon Dioxide 32 H Anion Gap 12 BUN 40 H Creatinine 1.06 Est GFR ( Amer) 59 L Est GFR (Non-Af Amer) 49 L Glucose 280 H Calcium 9.3 Impressions: Chest X-Ray 05/08/16 06:38 IMPRESSION: Bilateral parahilar airspace disease worrisome for edema Stable small bilateral pleural effusions with bibasilar consolidation atelectasis versus pneumonia similar compared to multiple previous studies Assessment & Plan - Diagnosis (1) Acute respiratory failure Is this a current diagnosis for this admission?: YesPlan: Respiratory failure is multifactorial including acute COPD exacerbation, acute on chronic congestive heart failure, and possible early pneumonia. She continues to improve. Will change all her medications to oral for discharge home tomorrow (2) COPD with acute exacerbation Is this a current diagnosis for this admission?: YesPlan: We'll give nebulizers and antibiotics and change her steroids to by mouth.. 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 Continue with Zyvox and Levaquin by mouth. Cultures are negative so far. (5) Paroxysmal a-fib Is this a current diagnosis for this admission?: YesPlan: Patient is in a regular rhythm currently. (6) Essential (primary) hypertension Is this a current diagnosis for this admission?: Yes (7) DMII (diabetes mellitus, type 2) Qualifiers: Diabetes mellitus complication status: without complication Diabetes mellitus usp insulin use: with terminal carman use Qualified Code(s): E11.9 - Type 2 diabetes mellitus without complications Is this a current diagnosis for this admission?: YesPlan: We'll cover with sliding scale insulin. (8) DVT prophylaxis Is this a current diagnosis for this admission?: YesPlan: We'll cover with Lovenox - Time Time Spent with patient: 25-34 minutes - Inpatient Certification Medical Necessity: Need Close Monitoring Due to Risk of Patient Decompensation - Plan Summary Plan Summary: If she continues to improve we can discharge home tomorrow.
[2016-05-10] MEDS: DIGOXIN 0.125 MG TABLET PO SCH (14:19)
[2016-05-10] MEDS: FUROSEMIDE 40 MG TABLET PO SCH (17:38)
[2016-05-10] MEDS: RIVAROXABAN 15 MG TABLET PO SCH (17:39)
[2016-05-10] MEDS: LINEZOLID 600 MG TABLET PO SCH (22:20)
[2016-05-10] MEDS: CETIRIZINE 10 MG TABLET PO SCH (22:20)
[2016-05-11 05:36] LABS: HEMATOCRIT 34.3 % (36.0-47.0); HGB HCT DIFFERENCE -1.3; MEAN CORPUSCULAR HEMOGLOBIN 26.6 pg (27.0-33.4); MEAN CORPUSCULAR VOLUME 83 fl (80-97); RED BLOOD COUNT 4.12 10^6/uL (3.72-5.28); RED CELL DISTRIBUTION WIDTH 17.8 % (11.5-14.0)
[2016-05-11] MEDS: LANSOPRAZOLE 30 MG TAB.RAP.DR PO SCH (06:07)
[2016-05-11] MEDS: AMIODARONE HCL 200 MG TABLET PO SCH (06:07)
[2016-05-11 06:09] LABS: ANION GAP 10 (5-19); BLOOD UREA NITROGEN 42 mg/dL (7-20); CALCIUM 9.3 mg/dL (8.4-10.2); CARBON DIOXIDE 32 mmol/L (22-30); CHLORIDE 96 mmol/L (98-107); CREATININE RESULT 1.13 mg/dL (0.52-1.25); GLUCOSE 286 mg/dL (75-110); POTASSIUM 4.8 mmol/L (3.6-5.0); SODIUM 138.2 mmol/L (137-145)
[2016-05-11] MEDS: INSULIN GLARGINE,HUM.REC.ANLOG 300 UNIT/3 ML INSULN.PEN SUBCUT SCH (06:09)
[2016-05-11 08:16] VITALS: BP 167/64
[2016-05-11] MEDS: METOPROLOL SUCCINATE 50 MG TAB.SR.24H PO SCH (09:45)
[2016-05-11] MEDS: CHOLECALCIFEROL (D3) 1,000 UNIT TABLET PO SCH (09:48)
[2016-05-11] MEDS: LISINOPRIL 10 MG TABLET PO SCH (09:48)
[2016-05-11] MEDS: FUROSEMIDE 40 MG TABLET PO SCH (09:49)
[2016-05-11] MEDS: LINEZOLID 600 MG TABLET PO SCH (09:50)
[2016-05-11] MEDS: ASCORBIC ACID 500 MG TABLET PO SCH (09:50)
[2016-05-11] MEDS: AMLODIPINE BESYLATE 5 MG TABLET PO SCH (09:50)
[2016-05-11] MEDS: NYSTATIN CREAM 15 GM TP SCH (09:56)
[2016-05-11] MEDS: FLUTICASONE/SALMETEROL DISKUS 250-50 MCG/DOSE IH SCH (09:56)
[2016-05-11] MEDS: TIOTROPIUM BROMIDE DPI 5 CAP/KIT (18 MCG/CAP) IH SCH (09:57)
[2016-05-11] MEDS ORDERED: PREDNISONE 20 MG TABLET PO SCH (10:00)
[2016-05-11] MEDS ORDERED: LEVOFLOXACIN 750 MG TABLET PO SCH (10:00)
--- NOTE | 2016-05-11 10:45 | PDOC TRANSFER SUMMARY ---
General - Admit/Disc Date/PCP Admission Date/Primary Care Provider: 05/08/16 09:42 MYRIAM OCHOA MD Discharge Date: 05/11/16 - Discharge Diagnosis (1) Acute respiratory failure Is this a current diagnosis for this admission?: YesSummary: Secondary to both acute COPD exacerbation as well as acute congestive heart failure exacerbation (2) COPD with acute exacerbation Is this a current diagnosis for this admission?: Yes (3) Chronic combined systolic (congestive) and diastolic (congestive) heart failure Is this a current diagnosis for this admission?: Yes (4) Pneumonia Is this a current diagnosis for this admission?: YesSummary: Treated with Levaquin and Zyvox (5) Paroxysmal a-fib Is this a current diagnosis for this admission?: Yes (6) Essential (primary) hypertension Is this a current diagnosis for this admission?: Yes (7) DMII (diabetes mellitus, type 2) Is this a current diagnosis for this admission?: Yes (8) DVT prophylaxis Is this a current diagnosis for this admission?: Yes - Additional Information Resuscitation Status: Do Not Resuscitate - The patient's children are at the bedside and agree Discharge Diet: Cardiac, Diabetic Discharge Activity: Activity As Tolerated, Balance Activity w/Rest, Weigh Daily Home Medications: Acetaminophen [Tylenol 325 mg Tablet] 650 mg PO Q4HP PRN 05/08/16 Albuterol Sulfate [Albuterol Sulfate 2.5mg/3 mL] 1 vial IH BID@0800,2100 Albuterol Sulfate [Albuterol Sulfate 2.5mg/3 mL] 1 vial IH Q6HP PRN 05/08/16 Amiodarone HCl [Pacerone 100 mg Tablet] 100 mg PO DAILY@0630 05/08/16 Amlodipine Besylate [Norvasc 5 mg Tablet] 5 mg PO DAILY 05/08/16 Ascorbic Acid [Vitamin C 500 mg Tablet] 500 mg PO QAM 05/08/16 Cetirizine HCl [Zyrtec 10 mg Tablet] 1 tab PO QHS 05/08/16 Cholecalciferol (Vitamin D3) [Vitamin D3 2000 unit Tablet] 2,000 unit PO QAM Digoxin [Lanoxin 0.125 mg Tablet] 0.125 mg PO DAILY@1300 05/08/16 Esomeprazole Magnesium [Nexium] 40 mg PO DAILY@0630 05/08/16 Fluticasone/Salmeterol [Advair 250-50 Diskus 28 dose] 1 inh IH Q12@08,1999 Guaifenesin [Mucinex] 1,200 mg PO Q12@799,199905/08/16 Guaifenesin/D-Methorphan Hb [Robitussin Dm S-F Cough Syrup] 10 ml PO Q4HP PRN Insulin Glargine,Hum.rec.anlog [Lantus Solostar] 10 unit SQ DAILY@0630 05/08/16 Lisinopril [Prinivil 10 mg Tablet] 10 mg PO QAM 05/08/16 Metoprolol Succinate [Toprol Xl 50 mg Tab.sr] 50 mg PO QAM 05/08/16 Nystatin [Mycostatin Cream 15 gm] 1 applic TP BID 05/08/16 Rivaroxaban [Xarelto 15 mg Tablet] 15 mg PO QPM 05/08/16 Sitagliptin Phos/Metformin HCl [Janumet Xr 100-1,000 mg Tablet] 1 each PO QAM Tiotropium [place] [Spiriva Handihaler 18 mcg/dose (30 Dose)] 1 cap IH QAM 05/08 Levofloxacin [Levaquin 750 mg Tablet] 750 mg PO DAILY #7 tablet 05/11/16 Linezolid [Zyvox 600 mg Tablet] 600 mg PO Q12 #14 tablet 05/11/16 Prednisone [Deltasone 20 mg Tablet] 10 mg PO DAILY #39 tablet 05/11/16 Torsemide [Demadex 20 mg Tablet] 20 mg PO BID #0 05/11/16 History of Present Illness Admission Date/PCP: 05/08/16 09:42 MYRIAM OCHOA MD History of Present Illness: FAUSTINO SHARIF is a 89 year old female who is resident at [facility] assisted-living who presents with an acute COPD exacerbation. The patient reports that over the last week she's had worsening shortness of breath as well as a nonproductive cough. 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 Patient has continued to have worsening shortness of breath but denies any fevers or chills. She also has had orthopnea and PND but denies any chest pain. Patient is normally on oxygen 3 L per nasal cannula at home. Hospital Course Hospital Course: 89-year-old female who presented with acute respiratory failure secondary to an acute COPD exacerbation along with acute congestive heart failure. Patient clinically had pneumonia. She was treated with Zyvox and Levaquin as well as IV steroids, IV Lasix and nebulizers. She improved dramatically and was back to her baseline on the day of discharge. Patient is to complete a course of oral steroids and oral antibiotics. The patient's usual torsemide dose was creased to what she was getting here in the hospital Physical Exam Vital Signs: Temp Pulse Resp BP Pulse Ox 97.4 F 65 19 167/64 H 98 05/11/16 07:59 05/11/16 07:59 05/11/16 07:59 05/11/16 07:59 05/11/16 07:59 Intake & Output 05/10/16 05/11/16 05/12/16 06:59 06:59 06:59 Intake Total 1903 1859 Output Total 2950 Balance -1047 1859 Weight 83.5 kg 83.5 kg General appearance: PRESENT: no acute distress Eye exam: PRESENT: conjunctiva pink. ABSENT: scleral icterus Mouth exam: PRESENT: moist, tongue midline Neck exam: ABSENT: carotid bruit, JVD, lymphadenopathy, thyromegaly Respiratory exam: PRESENT: clear to auscultation emelyn. ABSENT: rales, rhonchi, wheezes Cardiovascular exam: PRESENT: RRR. ABSENT: diastolic murmur, rubs, systolic murmur GI/Abdominal exam: PRESENT: normal bowel sounds, soft. ABSENT: distended, guarding, mass, organolmegaly, rebound, tenderness Extremities exam: ABSENT: calf tenderness, clubbing, pedal edema Neurological exam: PRESENT: alert, awake, oriented to person, oriented to place , oriented to time, oriented to situation, CN II-XII grossly intact. ABSENT: motor sensory deficit Psychiatric exam: PRESENT: appropriate affect Skin exam: PRESENT: dry, intact, warm. ABSENT: cyanosis, rash Results Laboratory Results: 05/11/16 04:55 05/11/16 04:55 05/11/16 05/11/16 04:55 04:55 WBC 13.0 H RBC 4.12 Hgb 11.0 L Hct 34.3 L MCV 83 MCH 26.6 L MCHC 32.0 RDW 17.8 H Plt Count 345 Sodium 138.2 Potassium 4.8 Chloride 96 L Carbon Dioxide 32 H Anion Gap 10 BUN 42 H Creatinine 1.13 Est GFR ( Amer) 55 L Est GFR (Non-Af Amer) 45 L Glucose 286 H Calcium 9.3 05/08/16 19:05 Nasophary (Mrsa Only) MRSA Surveillance Culture - Final NO MRSA RECOVERED Impressions: Chest X-Ray 05/08/16 06:38 IMPRESSION: Bilateral parahilar airspace disease worrisome for edema Stable small bilateral pleural effusions with bibasilar consolidation atelectasis versus pneumonia similar compared to multiple previous studies Transfer Plan - Disposition Transfer Plan: Patient is to be transferred back to [facility] assisted living. - Time Spent with Patient Time spent with patient: Greater than 30 Minutes Qualifiers PATEINT BEING DISCHARGED WITH ANY OF THE FOLLOWING DIAGNOSIS?: No Plan Discharge Plan: Patient to be discharged back to [facility] today Time Spent: Greater than 30 Minutes
== END 2016-05-11 13:23 | disposition home health service (06) | DRG 190 ==
LOC: ER 06:36 → EH 09:42 → UNDOADMIN 10:29 → EH 10:29 → 3S 17:57
PROVIDERS: ADMIT Internal Medicine; ATTEND Internal Medicine
PROC: 5A09457 Assistance with Respiratory Ventilation, 24-96 Consecutive Hours, Continuous Positive Airway Pressure (ICD-10-PCS; principal; 2016-05-08)
PROC: 3E0F73Z Introduction of Anti-inflammatory into Respiratory Tract, Via Natural or Artificial Opening (ICD-10-PCS; 2016-05-08)
DX: J44.1 Chronic obstructive pulmonary disease with (acute) exacerbation (principal); I50.43 Acute on chronic combined systolic (congestive) and diastolic (congestive) heart failure; J96.00 Acute respiratory failure, unspecified whether with hypoxia or hypercapnia; J15.212 Pneumonia due to Methicillin resistant Staphylococcus aureus; I11.0 Hypertensive heart disease with heart failure; J44.0 Chronic obstructive pulmonary disease with (acute) lower respiratory infection; I48.0 Paroxysmal atrial fibrillation; E11.9 Type 2 diabetes mellitus without complications; E78.5 Hyperlipidemia, unspecified; J45.909 Unspecified asthma, uncomplicated; G47.30 Sleep apnea, unspecified; K21.9 Gastro-esophageal reflux disease without esophagitis; M19.90 Unspecified osteoarthritis, unspecified site; Z66 Do not resuscitate; Z88.3 Allergy status to other anti-infective agents; Z79.4 Long term (current) use of insulin; Z79.899 Other long term (current) drug therapy; Z90.710 Acquired absence of both cervix and uterus; Z96.653 Presence of artificial knee joint, bilateral; Z87.891 Personal history of nicotine dependence; Z82.49 Family history of ischemic heart disease and other diseases of the circulatory system
CPT/HCPCS: 36415; 36600; 71010; 80048; 80053; 81001; 82550; 82553; 82803; 82962; 83735; 83880; 84484; 85025; 85027; 87040; 87804; 93005; 93010; 94640; 94660; 96374; 96375; 99285; J1650; J1815; J1940; J1956; J2020; J2920; J2930; J3490; J7512; J7620

== ENCOUNTER 2016-09-08 09:28 | Emergency (ER) | payer MEDICARE ==
[2016-09-08] MEDS ORDERED: ASPIRIN 81 MG TABLET, CHEWABLE PO ONE (09:29)
[2016-09-08] MEDS ORDERED: LIDOCAINE 2% VISCOUS SOLN 20 ML UDCUP PO ONE ×2 (09:51→13:43)
[2016-09-08] MEDS ORDERED: MAG HYDROX/AL HYDROX/SIMETH SUSP 30 ML UDCUP PO ONE ×2 (09:51→13:43)
[2016-09-08] MEDS ORDERED: PANTOPRAZOLE SODIUM 40 MG VIAL IV ONE (09:52)
--- NOTE | 2016-09-08 09:52 | ER Document Report ---
ED General - General Mode of Arrival: Ambulatory Information source: Patient TRAVEL OUTSIDE OF THE [place] IN LAST 30 DAYS: No - HPI Onset: Other - Refer to HPI notes Similar symptoms previously: No Recently seen / treated by doctor: No <YAHAIRA AMBROSE - Last Filed: 09/08/16 10:55> <NICOLE NUGENT - Last Filed: 09/08/16 15:14> - General Stated Complaint: CHEST PAIN Time Seen by Provider: 09/08/16 09:39 Notes: Patient is a 89-year-old female presenting to the emergency department for epigastric pain 2 days. Patient had some vomiting yesterday. Pain is exacerbated with deep breathing. Patient's family member states the patient has had pain with eating and swallowing. Patient stopped taking her Nexium in May. Patient saw her primary care physician about 8 days ago and for possible pneumonia; patient was given a prescription for doxycycline and has a few more days to take the medication. Patient's family also state the patient has lots of anxiety. Patient resides at [facility] and remains on 3 liters of oxygen. Patient has a history of GERD, CHF, hiatal hernia, dementia, atrial fibrillation, type 2 diabetes mellitus, GERD, hypertension, anxiety. Patient's PCP is Dr. Warren. 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 (YAHAIRA AMBROSE) - Related Data Allergies/Adverse Reactions: azithromycin [Azithromycin] Allergy (Verified 09/08/16 11:34) Past Medical History - General Information source: Patient - Social History Smoking Status: Former Smoker Frequency of alcohol use: None Drug Abuse: None Family History: Hyperlipidemia, Hypertension Patient has suicidal ideation: No Patient has homicidal ideation: No - Past Medical History Cardiac Medical History: Reports: Hx Atrial Fibrillation, Hx Congestive Heart Failure - Both systolic and diastolic congestive heart failure, Hx Hypercholesterolemia, Hx Hypertension Pulmonary Medical History: Reports: Hx Asthma, Hx Bronchitis, Hx COPD, Hx Pneumonia, Hx Sleep Apnea Endocrine Medical History: Reports: Hx Diabetes Mellitus Type 2 GI Medical History: Reports: Hx Gastroesophageal Reflux Disease, Hx Hiatal Hernia Musculoskeltal Medical History: Reports Hx Arthritis Psychiatric Medical History: Reports: Hx Anxiety, Hx Dementia Traumatic Medical History: Reports: Hx Fractures Past Surgical History: Reports: Hx Appendectomy, Hx Herniorrhaphy, Hx Hysterectomy, Hx Orthopedic Surgery - Bilateral total knee replacements - Immunizations Hx Diphtheria, Pertussis, Tetanus Vaccination: No Hx Pneumococcal Vaccination: 02/25/09 <YAHAIRA AMBROSE - Last Filed: 09/08/16 10:55> Review of Systems - Review of Systems Constitutional: No symptoms reported EENT: No symptoms reported Cardiovascular: See HPI Respiratory: See HPI, Short of breath Gastrointestinal: See HPI, Abdominal pain, Nausea Genitourinary: No symptoms reported Female Genitourinary: No symptoms reported Musculoskeletal: No symptoms reported Skin: No symptoms reported Hematologic/Lymphatic: No symptoms reported Neurological/Psychological: See HPI, Anxiety -: Yes All other systems reviewed and negative <YAHAIRA AMBROSE - Last Filed: 09/08/16 10:55> Physical Exam - Vital signs Interpretation: Normal <YAHAIRA AMBROSE - Last Filed: 09/08/16 10:55> <NICOLE NUGENT - Last Filed: 09/08/16 15:14> - Vital signs Vitals: Resp 09/08/16 09:39 - Notes Notes: GENERAL: Alert, interacts well. No acute distress. HEAD: Normocephalic, atraumatic. EYES: Appear normal. Pupils equal, round, and reactive to light. ENT: Moist mucus membranes, tongue midline. Hard of hearing, hearing aid in right ear. NECK: Full range of motion. Supple. Trachea midline. LUNGS: Clear to auscultation bilaterally, no wheezes, rales, or rhonchi. No respiratory distress. HEART: Regular rate and rhythm. No murmurs, gallops, or rubs. ABDOMEN: Soft. Epigastric tenderness to palpation. Non-distended. Normal bowel sounds. EXTREMITIES: Moves all 4 extremities spontaneously. Normal strength. No edema. Patient is wearing compression stockings. NEUROLOGICAL: Alert and oriented x3. Normal speech. No focal neurological deficits. GSC 15. PSYCH: Normal affect, normal mood. SKIN: Warm, dry, normal turgor. No rashes or lesions noted. (HALIEYAHAIRA) Course - Laboratory Result Diagrams: 09/08/16 10:12 09/08/16 10:12 <YAHAIRA AMBROSE - Last Filed: 09/08/16 10:55> - Laboratory Result Diagrams: 09/08/16 10:12 09/08/16 10:12 - Diagnostic Test Radiology reviewed: Image reviewed, Reports reviewed - Hyperinflated, COPD, cardiomegaly, mild interstitial pattern, much improved compared to April 2016 - EKG Interpretation by Me EKG shows normal: Sinus rhythm, [place], Intervals, QRS Complexes. abnormal: ST-T Waves - Borderline lateral ST depression Rate: Normal - 62 Rhythm: NSR [place]/QRS: IVCD <NICOLE NUGENT - Last Filed: 09/08/16 15:14> - Re-evaluation Re-evalutation: 09/08/16 13:43 The patient reports the GI Cocktail helped initially but has now worn off. There is still the epigastric discomfort again. She was sleeping and awoke her up to review how she was doing. Cardiac enzymes are negative on 2 sets 2 hours apart. 09/08/16 14:22 A repeat GI cocktail provided prompt relief to the epigastric discomfort again. (NICOLE NUGENT) - Vital Signs Vital signs: Temp Pulse Resp BP Pulse Ox 98.6 F 62 17 117/51 L 94 09/08/16 09:50 09/08/16 09:50 09/08/16 15:01 09/08/16 15:00 09/08/16 15:01 - Laboratory Laboratory results interpreted by ia: 09/08/16 09/08/16 09/08/16 10:12 10:12 10:12 WBC 14.1 H Hgb 10.9 L Hct 34.7 L MCH 25.7 L MCHC 31.5 L RDW 16.4 H Plt Count 487 H Seg Neuts % (Manual) 94 H Lymphocytes % (Manual) 3 L Abs Neuts (Manual) 13.3 H Abs Lymphs (Manual) 0.4 L BUN 37 H Est GFR (Non-Af Amer) 50 L Glucose 152 H Direct Bilirubin 0.5 H NT-Pro-B Natriuret Pep 2800 H Albumin 3.4 L Digoxin 09/08/16 10:12 WBC Hgb Hct MCH MCHC RDW Plt Count Seg Neuts % (Manual) Lymphocytes % (Manual) Abs Neuts (Manual) Abs Lymphs (Manual) BUN Est GFR (Non-Af Amer) Glucose Direct Bilirubin NT-Pro-B Natriuret Pep Albumin Digoxin 0.75 L Discharge <YAHAIRA AMBROSE - Last Filed: 09/08/16 10:55> <NICOLE NUGENT - Last Filed: 09/08/16 15:14> - Discharge Clinical Impression: Epigastric burning sensation COPD (chronic obstructive pulmonary disease) Qualifiers: COPD type: unspecified COPD Qualified Code(s): J44.9 - Chronic obstructive pulmonary disease, unspecified Gastroesophageal reflux disease Qualifiers: Esophagitis presence: esophagitis presence not specified Qualified Code(s): K21.9 - Gastro-esophageal reflux disease without esophagitis Condition: Stable Disposition: HOME, SELF-CARE Additional Instructions: Reflux Disease (GERD): Gastro-Esophageal Reflux Disease (GERD) is caused by stomach acid refluxing back up into the esophagus. The valve at the end of the esophagus may be weak. This is common in persons with a hiatal hernia. GERD symptoms can include indigestion, chest pain, heartburn, or food "sticking." Certain foods, alcohol, and aspirin can make GERD worse. Treatment depends on the severity. Usually, antacids or acid-suppressing medicines are used. When the esophagus is acutely inflamed, the physician will often prescribe membrane-protective drugs such as Carafate. Some patients benefit from medication such as Reglan that tightens the valve at the top of the stomach. Avoid those foods that bring on your symptoms. For many people, these foods are coffee, chocolate, onions, garlic, and carbonated drinks. Don't use alcohol, aspirin, caffeine, or tobacco. Don't eat late at night -- within 4 hours of bedtime. Don't over-eat. If necessary, elevate the head of your bed about 4 inches so that stomach acid will not roll up into your esophagus. Call the doctor if you develop severe chest pain, inability to swallow fluids, fever, or worsening symptoms. YOUR EPIGASTRIC ABDOMINAL AND CHEST PAIN TODAY APPEARS TO BE DUE TO REFLUX. YOU SHOULD RESTART THE NEXIUM YOU WERE ON PREVIOUSLY. YOU SHOULD EAT A SOFT, BLAND DIET FOR A FEW DAYS. FOLLOW UP WITH YOUR DOCTOR IF NOT IMPROVING. RETURN TO THE EMERGENCY ROOM IF ANY NEW OR WORSENING SYMPTOMS. Prescriptions: Pantoprazole Sodium [Protonix] 40 mg PO DAILY #30 tablet. Referrals: ANNETTE SOLIS MD [Primary Care Provider] - Follow up as needed Chetan Attestation: 09/08/16 13:50 I personally performed the services described in the documentation, reviewed and edited the documentation which was dictated to the scribe in my presence, and it accurately records my words and actions. (NICOLE NUGENT) Scribe Documentation - Scribe Written by Chetan:: Chetan Childers, 09/08/2016 11:00 acting as scribe for :: Pati <YAHAIRA AMBROSE - Last Filed: 09/08/16 10:55>
--- NOTE | 2016-09-08 09:59 | RADIOLOGY REPORT (SQ) ---
EXAM DESCRIPTION: CHEST SINGLE VIEW COMPLETED DATE/TIME: 09/08/2016 9:41 am REASON FOR STUDY: bed 8 db/cp COMPARISON: 05/08/2016. NUMBER OF VIEWS: One view. TECHNIQUE: Single frontal radiographic view of the chest acquired. LIMITATIONS: None. FINDINGS: LUNGS AND PLEURA: Hyperinflated, likely COPD. Mild interstitial pattern in the lungs. Im proved compared to April. No pneumothorax or consolidating pneumonia suggested. Trace pleural fluid . MEDIASTINUM AND HILAR STRUCTURES: Stable. HEART AND VASCULAR STRUCTURES: Cardiac enlargement. BONES: No acute findings. HARDWARE: None in the chest. OTHER: No other significant finding. IMPRESSION: Findings as above, potentially minimal CHF superimposed on COPD. TECHNICAL DOCUMENTATION: JOB ID: [id number] [employer]- All Rights Reserved
[2016-09-08 10:38] LABS: HEMATOCRIT 34.7 % (36.0-47.0); HEMOGLOBIN 10.9 g/dL (12.0-15.5); MEAN CORPUSCULAR HEMOGLOBIN 25.7 pg (27.0-33.4); MEAN CORPUSCULAR HGB CONC 31.5 g/dL (32.0-36.0); MEAN CORPUSCULAR VOLUME 82 fl (80-97); RED BLOOD COUNT 4.25 10^6/uL (3.72-5.28); RED CELL DISTRIBUTION WIDTH 16.4 % (11.5-14.0); WHITE BLOOD COUNT 14.1 10^3/uL (4.0-10.5)
[2016-09-08 10:47] LABS: ALANINE AMINOTRANSFERASE 30 U/L (9-52); ALBUMIN 3.4 g/dL (3.5-5.0); ALKALINE PHOSPHATASE 47 U/L (38-126); ANION GAP 11 (5-19); ASPARTATE AMINO TRANSFERASE 19 U/L (14-36); BILIRUBIN,DIRECT 0.5 mg/dL (0.0-0.4); BILIRUBIN,TOTAL 0.8 mg/dL (0.2-1.3); BLOOD UREA NITROGEN 37 mg/dL (7-20); CARBON DIOXIDE 30 mmol/L (22-30); CHLORIDE 101 mmol/L (98-107); CREATINE KINASE 39 U/L (30-135); CREATININE RESULT 1.03 mg/dL (0.52-1.25); GLUCOSE 152 mg/dL (75-110); SODIUM 142.1 mmol/L (137-145); TOTAL PROTEIN 6.6 g/dL (6.3-8.2)
[2016-09-08 10:50] LABS: BASOPHILS % (MANUAL) 0 % (0-2); EOSINOPHILS % (MANUAL) 0 % (0-6); LYMPHOCYTES % (MANUAL) 3 % (13-45); TOTAL CELLS COUNTED 100
[2016-09-08 10:51] LABS: ANISOCYTOSIS SLIGHT; HYPOCHROMASIA SLIGHT
[2016-09-08 10:57] LABS: CREATINE KINASE MB 1.29 ng/mL (<4.55); TROPONIN I 0.025 ng/mL
[2016-09-08 11:21] LABS: ADD ON TESTING BLD IN LAB ACKNOWLEDGE
[2016-09-08 11:34] LABS: DIGOXIN 0.75 ng/mL (0.8-2.0)
--- NOTE | 2016-09-08 14:50 | EKG REPORT ---
SEVERITY:- ABNORMAL ECG - SINUS RHYTHM NONSPECIFIC INTRAVENTRICULAR CONDUCTION DELAY BORDERLINE ST DEPRESSION, LATERAL LEADS : Confirmed by: Xander Carlisle MD 08-Sep-2016 14:49:43
[2016-09-08 15:05] VITALS: BP 117/51
== END 2016-09-08 15:25 | disposition home or self-care (01) ==
LOC: ER 09:28
DX: K21.9 Gastro-esophageal reflux disease without esophagitis (principal); F41.9 Anxiety disorder, unspecified; R11.0 Nausea; R10.13 Epigastric pain; R06.02 Shortness of breath; I51.7 Cardiomegaly; J44.9 Chronic obstructive pulmonary disease, unspecified; Z99.81 Dependence on supplemental oxygen; E11.9 Type 2 diabetes mellitus without complications; I10 Essential (primary) hypertension; Z88.1 Allergy status to other antibiotic agents; Z87.891 Personal history of nicotine dependence; Z87.01 Personal history of pneumonia (recurrent)
CPT/HCPCS: 93005; 99285; 96374; 36415; 82553; 82550; 80162; 85025; 80053; 84484; 83880; 71010; 93010; J3490; C9113; S0164

== ENCOUNTER 2017-01-06 14:40 | Inpatient (IN) | payer MEDICARE ==
--- NOTE | 2017-01-06 15:53 | RADIOLOGY REPORT (SQ) ---
EXAM DESCRIPTION: CHEST SINGLE VIEW COMPLETED DATE/TIME: 01/06/2017 3:34 pm REASON FOR STUDY: SOB COMPARISON: 09/08/2016 NUMBER OF VIEWS: One view. TECHNIQUE: Single frontal radiographic image of the chest acquired. LIMITATIONS: None. FINDINGS: LUNGS AND PLEURA: Airspace disease silhouetting the left diaphragm and left heart border. MEDIASTINUM AND HEART: Cardiomegaly. Right hilar density probably overlapping vessels although canno t exclude mass or adenopathy. BONY STRUCTURES: No acute findings. HARDWARE: None. OTHER: No other significant finding. IMPRESSION: Left lower lobe pneumonia. TECHNICAL DOCUMENTATION: JOB ID: [id number]
[2017-01-06] MEDS ORDERED: VANCOMYCIN HCL INJ 1000 MG VIAL IV ONE (16:24)
[2017-01-06] MEDS ORDERED: PIPERACILLIN/TAZOBACTAM 3.375 GM VIAL IV ONE ×2 (16:24→23:26)
--- NOTE | 2017-01-06 16:30 | ER Document Report ---
ED Respiratory Problem - General Chief Complaint: Breathing Difficulty Stated Complaint: DIFFICULTY BREATHING Time Seen by Provider: 01/06/17 15:15 Notes: The patient is an 89-year-old female, past medical history COPD (on home 3L O2) , frequent pneumonias, diastolic and systolic heart failure, A. fib controlled on amiodarone and on Xarelto, presents with increasing shortness of breath and chest congestion with a productive cough over the past 2 days. While at [facility] earlier today, her oxygen was at 70% on her normal 3 L nasal cannula. When EMS arrived, she was placed on 4 L nasal cannula with improvement of her oxygenation and respiratory status. Patient had a brief episode of dull right-sided chest achiness yesterday, but is no longer having chest pain. She denies edema, fevers, nausea, vomiting, back pain, rash, calf tenderness or headache. TRAVEL OUTSIDE OF THE [place] IN LAST 30 DAYS: No - Related Data Allergies/Adverse Reactions: azithromycin [Azithromycin] Allergy (Verified 09/08/16 11:34) Past Medical History - General Information source: Patient, Relative - Social History Smoking Status: Former Smoker Chew tobacco use (# tins/day): No Frequency of alcohol use: None Drug Abuse: None Family History: Hyperlipidemia, Hypertension - Past Medical History Cardiac Medical History: Reports: Hx Atrial Fibrillation, Hx Congestive Heart Failure - Both systolic and diastolic congestive heart failure, Hx Hypercholesterolemia, Hx Hypertension Pulmonary Medical History: Reports: Hx Asthma, Hx Bronchitis, Hx COPD, Hx Pneumonia, Hx Sleep Apnea Endocrine Medical History: Reports: Hx Diabetes Mellitus Type 2 Renal/ Medical History: Denies: Hx Peritoneal Dialysis GI Medical History: Reports: Hx Gastroesophageal Reflux Disease, Hx Hiatal Hernia Musculoskeltal Medical History: Reports Hx Arthritis Psychiatric Medical History: Reports: Hx Anxiety, Hx Dementia Traumatic Medical History: Reports: Hx Fractures Past Surgical History: Reports: Hx Appendectomy, Hx Herniorrhaphy, Hx Hysterectomy, Hx Orthopedic Surgery - Bilateral total knee replacements - Immunizations Hx Diphtheria, Pertussis, Tetanus Vaccination: No Hx Pneumococcal Vaccination: 02/25/09 Review of Systems - Review of Systems Notes: REVIEW OF SYSTEMS: CONSTITUTIONAL: -fevers, -chills EENT: -eye pain, -difficulty swallowing, -nasal congestion CARDIOVASCULAR:-chest pain, -syncope. RESPIRATORY: +cough, +SOB GASTROINTESTINAL: -abdominal pain, - nausea, -vomiting, -diarrhea GENITOURINARY: -dysuria, -hematuria MUSCULOSKELETAL: -back pain, -neck pain SKIN: -rash or skin lesions. HEMATOLOGIC: -easy bruising or bleeding. LYMPHATIC: -swollen, enlarged glands. NEUROLOGICAL: -altered mental status or loss of consciousness, -headache, - neurologic symptoms PSYCHIATRIC: -anxiety, -depression. ALL OTHER SYSTEMS REVIEWED AND NEGATIVE. Physical Exam - Vital signs Vitals: Resp 18 01/06/17 15:05 - Notes Notes: PHYSICAL EXAMINATION: GENERAL: Well-appearing, well-nourished and in no acute distress. HEAD: Atraumatic, normocephalic. EYES: Pupils equal round and reactive to light, extraocular movements intact, sclera anicteric, conjunctiva are normal. ENT: nares patent, oropharynx clear without exudates. Moist mucous membranes. NECK: Normal range of motion, supple without lymphadenopathy LUNGS: Mild tachypnea. Left lower lobe crackles. HEART: Regular rate and rhythm without murmurs ABDOMEN: Soft, nontender, normoactive bowel sounds. No guarding, no rebound. No masses appreciated. EXTREMITIES: Normal range of motion, no pitting or edema. No cyanosis. NEUROLOGICAL: Cranial nerves grossly intact. Normal speech. Normal sensory and motor exams. SKIN: Warm, Dry, normal turgor, no rashes or lesions noted. Course - Re-evaluation Re-evalutation: Patient with hypoxia down to 70% at the snf when EMS arrived, which improved with increase of her oxygen requirement to 4 L nasal cannula. Her chest x-ray shows a left lower lobe pneumonia, but no evidence of pulmonary edema or fluid overload. Looking through prior culture results, she grew out MRSA and Haemophilus. Broad-spectrum antibiotics started and patient requires admission for further evaluation and treatment due to multiple comorbidities and age. Patient is confirmed to be DNR and DNI with family at bedside to confirm this. Her PMD is Dr. Jerez. 01/06/17 17:[address] Jose and will admit patient as Inpatient to Medical Floor. - Vital Signs Vital signs: Temp Pulse Resp BP Pulse Ox 98.4 F 80 22 H 127/60 H 95 01/06/17 15:16 01/06/17 15:16 01/06/17 17:03 01/06/17 17:03 01/06/17 17:03 - Laboratory Result Diagrams: 01/06/17 15:55 01/06/17 15:55 Laboratory results interpreted by me: 01/06/17 01/06/17 01/06/17 15:55 15:55 15:55 WBC 18.9 H Hgb 11.1 L Hct 35.1 L MCV 78 L MCH 24.9 L MCHC 31.8 L RDW 18.3 H Plt Count 617 H Seg Neuts % (Manual) 82 H Lymphocytes % (Manual) 9 L Abs Neuts (Manual) 15.5 H Abs Monocytes (Manual) 1.7 H VBG pH VBG HCO3 Sodium 146.8 H Carbon Dioxide 35 H BUN 39 H Est GFR ( Amer) 58 L Est GFR (Non-Af Amer) 48 L AST 42 H NT-Pro-B Natriuret Pep 6980 H Urine Ascorbic Acid 01/06/17 01/06/17 15:55 15:55 WBC Hgb Hct MCV MCH MCHC RDW Plt Count Seg Neuts % (Manual) Lymphocytes % (Manual) Abs Neuts (Manual) Abs Monocytes (Manual) VBG pH 7.44 H VBG HCO3 35.6 H Sodium Carbon Dioxide BUN Est GFR ( Amer) Est GFR (Non-Af Amer) AST NT-Pro-B Natriuret Pep Urine Ascorbic Acid 40 H - Diagnostic Test Radiology reviewed: Image reviewed, Reports reviewed Radiology results interpreted by me: CXR: Left lower lobe pneumonia - EKG Interpretation by Me EKG shows normal: Sinus rhythm, [place], Intervals, QRS Complexes, ST-T Waves Rate: Normal When compared to previous EKG there are: No significant change Discharge - Discharge Clinical Impression: Hypoxia Pneumonia Qualifiers: Pneumonia type: due to unspecified organism Laterality: left Lung location: lower lobe of lung Qualified Code(s): J18.1 - Lobar pneumonia, unspecified organism Condition: Stable Disposition: ADMITTED INPATIENT Admitting Provider: Hospitalist - [facility] Admitted: Medical Floor Referrals: ANNETTE AARON MD [Primary Care Provider] - Follow up as needed
[2017-01-06 16:46] LABS: VENOUS BLOOD BASE EXCESS 9.5 mmol/L; VENOUS BLOOD HCO3 35.6 mmol/L (20-32); VENOUS BLOOD PCO2 53.9 mmHg (35-63); VENOUS BLOOD PH 7.44 (7.30-7.42)
[2017-01-06 16:50] LABS: HEMATOCRIT 35.1 % (36.0-47.0); HEMOGLOBIN 11.1 g/dL (12.0-15.5); HGB HCT DIFFERENCE -1.8; MEAN CORPUSCULAR HEMOGLOBIN 24.9 pg (27.0-33.4); MEAN CORPUSCULAR HGB CONC 31.8 g/dL (32.0-36.0); MEAN CORPUSCULAR VOLUME 78 fl (80-97); RED BLOOD COUNT 4.47 10^6/uL (3.72-5.28); RED CELL DISTRIBUTION WIDTH 18.3 % (11.5-14.0); WHITE BLOOD COUNT 18.9 10^3/uL (4.0-10.5)
[2017-01-06 17:07] LABS: APPEARANCE,URINE CLEAR; BILIRUBIN,URINE NEGATIVE (NEGATIVE); GLUCOSE, URINE NEGATIVE (NEGATIVE); KETONES,URINE NEGATIVE (NEGATIVE); LEUKOCYTE ESTERASE,URINE NEGATIVE (NEGATIVE); NITRITE,URINE NEGATIVE (NEGATIVE); PROTEIN,URINE NEGATIVE (NEGATIVE); URINE SPECIFIC GRAVITY 1.009; UROBILINOGEN,URINE NEGATIVE mg/dL (<2.0)
[2017-01-06 17:09] LABS: ALANINE AMINOTRANSFERASE 30 U/L (9-52); ALBUMIN 3.8 g/dL (3.5-5.0); ALKALINE PHOSPHATASE 48 U/L (38-126); ANION GAP 13 (5-19); ASPARTATE AMINO TRANSFERASE 42 U/L (14-36); BILIRUBIN,DIRECT 0.3 mg/dL (0.0-0.4); BILIRUBIN,TOTAL 0.7 mg/dL (0.2-1.3); BLOOD UREA NITROGEN 39 mg/dL (7-20); CALCIUM 8.7 mg/dL (8.4-10.2); CARBON DIOXIDE 35 mmol/L (22-30); CHLORIDE 99 mmol/L (98-107); CREATINE KINASE 35 U/L (30-135); CREATININE RESULT 1.08 mg/dL (0.52-1.25); GLUCOSE 86 mg/dL (75-110); LIPASE 53.4 U/L (23-300); POTASSIUM 4.2 mmol/L (3.6-5.0); SODIUM 146.8 mmol/L (137-145); TOTAL PROTEIN 6.9 g/dL (6.3-8.2)
[2017-01-06 17:20] LABS: TROPONIN I 0.019 ng/mL
[2017-01-06 17:25] LABS: BASOPHILS % (MANUAL) 0 % (0-2); EOSINOPHILS % (MANUAL) 0 % (0-6); LYMPHOCYTES % (MANUAL) 9 % (13-45); TOTAL CELLS COUNTED 100
[2017-01-06 17:28] LABS: ANISOCYTOSIS 2+; HYPOCHROMASIA SLIGHT; MICROCYTOSIS SLIGHT; POLYCHROMASIA SLIGHT; TOXIC VACUOLATION PRESENT
[2017-01-06] MEDS ORDERED: ONDANSETRON 4 MG TAB.RAPDIS PO PRN (17:51)
[2017-01-06] MEDS ORDERED: ALBUTEROL SULFATE 0.083% NEB 2.5 MG/3 ML AMPUL NEB PRN (17:51)
[2017-01-06] MEDS ORDERED: ONDANSETRON HCL INJ/PF 4 MG/2 ML SDV IV PRN (17:51)
[2017-01-06] MEDS ORDERED: ACETAMINOPHEN 325 MG TABLET PO PRN (17:51)
[2017-01-06] MEDS ORDERED: PIPERACILLIN SODIUM/TAZOBACTAM 3.375 GM in NORMAL SALINE 100 ML IV SCH ×2 (18:00→21:00)
[2017-01-06] MEDS ORDERED: GLUCAGON,HUMAN RECOMB 1 MG INJ IM PRN (18:00)
[2017-01-06] MEDS ORDERED: DEXTROSE 40% GEL 15 GM TUBE PO PRN ×2 (18:00)
[2017-01-06] MEDS ORDERED: DEXTROSE 50%-WATER 25 GM/50 ML DISP.SYRIN IV PRN ×2 (18:00)
[2017-01-06] MEDS ORDERED: VANCOMYCIN HCL 0 MG in DEXTROSE 5%-WATER 250 ML IV NR (18:00)
--- NOTE | 2017-01-06 18:10 | PDOC H&P ---
History of Present Illness Admission Date/PCP: 01/06/17 17:45 ANNETTE AARON MD Patient complains of: Shortness of breath and cough. History of Present Illness: FAUSTINO SHARIF is a 89 year old female who has a history of COPD chronically on 3 L per nasal cannula who presents with a one-day history of cough productive of yellow sputum along with shortness of breath. Patient also relates having some orthopnea and PND. She however denies any worsening lower extremity edema. The patient reports that she has also had some right-sided pleuritic chest pain. Because of this she had a CT angiogram of the lungs which was negative for DVT. She was found to have a left lower lobe pneumonia. The patient does report having some low-grade fevers and chills at home. She has dyspnea on exertion also. She relates that her chest pain is sharp but is not exertion related. Typically when she takes a breath and. The patient reports the pain is 3 out of 10 scale and is absent at this time. The patient has a history of atrial fibrillation but denies any tachycardia or palpitations. Patient denies any recent travel. She is a resident of [facility]. Past Medical History Cardiac Medical History: Reports: Atrial Fibrillation, Congestive Heart Failure - Both systolic and diastolic congestive heart failure, Hyperlipidema, Hypertension Pulmonary Medical History: Reports: Asthma, Bronchitis, Chronic Obstructive Pulmonary Disease (COPD), Pneumonia, Sleep Apnea Endocrine Medical History: Reports: Diabetes Mellitus Type 2 Renal/ Medical History: Reports: None Malignancy Medical History: Reports: None GI Medical History: Reports: Gastroesophageal Reflux Disease, Hiatal Hernia Musculoskeltal Medical History: Reports: Arthritis Psychiatric Medical History: Reports: Dementia Hematology: Denies: Anemia, Hemophilia, Sickle Cell Disease Past Surgical History Past Surgical History: Reports: Appendectomy, Herniorrhaphy, Hysterectomy, Orthopedic Surgery - Bilateral total knee replacements Denies: Amputation Social History Information Source: Patient Lives with: Detention Smoking Status: Former Smoker Frequency of Alcohol Use: None Hx Recreational Drug Use: No Drugs: None Hx Prescription Drug Abuse: No - Advance Directive Resuscitation Status: Do Not Resuscitate Family History Family History: Hyperlipidemia, Hypertension Family History: Mother in her 60s from cancer. Father at age 89 with COPD and coronary artery disease Parental Family History Reviewed: Yes Children Family History Reviewed: No Sibling(s) Family History Reviewed.: No Medication/Allergy Home Medications: Acetaminophen [Tylenol 325 mg Tablet] 650 mg PO Q4HP PRN 05/08/16 Albuterol Sulfate [Albuterol Sulfate 2.5mg/3 mL] 1 vial IH BID@0800,2099 Albuterol Sulfate [Albuterol Sulfate 2.5mg/3 mL] 1 vial IH Q6HP PRN 05/08/16 Amiodarone HCl [Pacerone 100 mg Tablet] 100 mg PO DAILY@62905/08/16 Amlodipine Besylate [Norvasc 5 mg Tablet] 5 mg PO DAILY 05/08/16 Ascorbic Acid [Vitamin C 500 mg Tablet] 500 mg PO QAM 05/08/16 Cetirizine HCl [Zyrtec 10 mg Tablet] 1 tab PO QHS 05/08/16 Cholecalciferol (Vitamin D3) [Vitamin D3 2000 unit Tablet] 2,000 unit PO QAM Digoxin [Lanoxin 0.125 mg Tablet] 0.125 mg PO DAILY@1300 05/08/16 Esomeprazole Magnesium [Nexium] 40 mg PO DAILY@62905/08/16 Fluticasone/Salmeterol [Advair 250-50 Diskus 28 dose] 1 inh IH Q12@08,1999 Guaifenesin [Mucinex] 1,200 mg PO Q12@0800,199905/08/16 Guaifenesin/D-Methorphan Hb [Robitussin Dm S-F Cough Syrup] 10 ml PO Q4HP PRN Insulin Glargine,Hum.rec.anlog [Lantus Solostar] 10 unit SQ DAILY@62905/08/16 Lisinopril [Prinivil 10 mg Tablet] 10 mg PO QAM 05/08/16 Metoprolol Succinate [Toprol Xl 50 mg Tab.sr] 50 mg PO QAM 05/08/16 Nystatin [Mycostatin Cream 15 gm] 1 applic TP BID 05/08/16 Rivaroxaban [Xarelto 15 mg Tablet] 15 mg PO QPM 05/08/16 Sitagliptin Phos/Metformin HCl [Janumet Xr 100-1,000 mg Tablet] 1 each PO QAM Tiotropium [place] [Spiriva Handihaler 18 mcg/dose (30 Dose)] 1 cap IH QAM 05/08 Levofloxacin [Levaquin 750 mg Tablet] 750 mg PO DAILY #7 tablet 05/11/16 Linezolid [Zyvox 600 mg Tablet] 600 mg PO Q12 #14 tablet 05/11/16 Prednisone [Deltasone 20 mg Tablet] 10 mg PO DAILY #39 tablet 05/11/16 Torsemide [Demadex 20 mg Tablet] 20 mg PO BID #0 05/11/16 Pantoprazole Sodium [Protonix] 40 mg PO DAILY #30 tablet. 09/08/16 Allergies/Adverse Reactions: azithromycin [Azithromycin] Allergy (Verified 09/08/16 11:34) Review of Systems Constitutional: PRESENT: chills, fever(s). ABSENT: headache(s), weight gain, weight loss Eyes: ABSENT: visual disturbances Ears: ABSENT: hearing changes Cardiovascular: PRESENT: chest pain, dyspnea on exertion, edema, orthropnea. ABSENT: palpitations Respiratory: PRESENT: cough, dyspnea, sputum. ABSENT: hemoptysis Gastrointestinal: ABSENT: abdominal pain, constipation, diarrhea, hematemesis, hematochezia, nausea, vomiting Genitourinary: ABSENT: dysuria, hematuria Musculoskeletal: ABSENT: joint swelling Integumentary: ABSENT: rash, wounds Neurological: ABSENT: abnormal gait, abnormal speech, confusion, dizziness, focal weakness, syncope Psychiatric: ABSENT: anxiety, depression Endocrine: ABSENT: cold intolerance, heat intolerance, polydipsia, polyuria Hematologic/Lymphatic: ABSENT: easy bleeding, easy bruising Physical Exam Vital Signs: Temp Pulse Resp BP Pulse Ox 98.4 F 80 22 H 127/60 H 95 01/06/17 15:16 01/06/17 15:16 01/06/17 17:03 01/06/17 17:03 01/06/17 17:03 General appearance: PRESENT: no acute distress, well-developed, well-nourished Head exam: PRESENT: atraumatic, normocephalic Eye exam: PRESENT: conjunctiva pink, EOMI, PERRLA. ABSENT: scleral icterus Ear exam: PRESENT: normal external ear exam Neck exam: ABSENT: carotid bruit, JVD, lymphadenopathy, thyromegaly Respiratory exam: PRESENT: rales - Left basilar rales.. ABSENT: rhonchi, wheezes Cardiovascular exam: PRESENT: irregular rhythm. ABSENT: diastolic murmur, rubs , systolic murmur GI/Abdominal exam: PRESENT: normal bowel sounds, soft. ABSENT: distended, guarding, mass, organolmegaly, rebound, tenderness Rectal exam: PRESENT: deferred Extremities exam: PRESENT: pedal edema - Trace pedal edema. ABSENT: calf tenderness, clubbing Neurological exam: PRESENT: alert, awake, oriented to person, oriented to place , oriented to time, oriented to situation, CN II-XII grossly intact. ABSENT: motor sensory deficit Psychiatric exam: PRESENT: appropriate affect Skin exam: PRESENT: dry, intact, warm. ABSENT: cyanosis, rash Results Impressions: Chest X-Ray 01/06/17 15:16 IMPRESSION: Left lower lobe pneumonia. Assessment & Plan - Diagnosis (1) Pneumonia Qualifiers: Pneumonia type: due to unspecified organism Laterality: left Lung location: lower lobe of lung Qualified Code(s): J18.1 - Lobar pneumonia, unspecified organism Is this a current diagnosis for this admission?: Yes Plan: The patient has pneumonia. She is a resident at an assisted living facility. Will treat with Zosyn and vancomycin. Patient also has a history of COPD and congestive heart failure however she has minimal wheezing and has no evidence for acute congestive heart failure at this time. (2) COPD (chronic obstructive pulmonary disease) Is this a current diagnosis for this admission?: Yes Plan: Continue with nebulizers. (3) Chronic combined systolic (congestive) and diastolic (congestive) heart failure Is this a current diagnosis for this admission?: Yes Plan: Patient appears to be euvolemic. (4) DMII (diabetes mellitus, type 2) Qualifiers: Is this a current diagnosis for this admission?: Yes Plan: Continue with Lantus and sliding scale insulin. (5) Essential (primary) hypertension Is this a current diagnosis for this admission?: Yes (6) Paroxysmal a-fib Is this a current diagnosis for this admission?: Yes Plan: Patient currently rate controlled. She is on Xarelto for anticoagulation. (7) DVT prophylaxis Is this a current diagnosis for this admission?: Yes Plan: She already is on Xarelto for her atrial fibrillation. - Time Time Spent: 50 to 70 Minutes - Plan Summary Plan Summary: We will admit as an observation. I anticipate that she may be able to be discharged home tomorrow if her respiratory status improves.
--- NOTE | 2017-01-06 18:14 | Progress Note ---
Provider Note Provider Note: The patient's advanced care planning wishes were discussed. 10 minutes were spent discussing her decision to be a DO NOT RESUSCITATE. it is documented that she requests to be a DO NOT RESUSCITATE.
[2017-01-06] MEDS: IPRATROPIUM/ALBUTEROL 0.5-2.5 MG/3 ML AMPUL NEB SCH (19:40)
--- NOTE | 2017-01-06 20:18 | EKG REPORT ---
SEVERITY:- ABNORMAL ECG - SINUS RHYTHM NONSPECIFIC INTRAVENTRICULAR CONDUCTION DELAY LATERAL INFARCT, OLD : Confirmed by: Xander Carlisle MD 06-Jan-2017 20:18:24
[2017-01-06] MEDS ORDERED: PIPERACILLIN/TAZOBACTAM 3.375 GM VIAL IV PRN (21:00)
[2017-01-06] MEDS: RIVAROXABAN 15 MG TABLET PO SCH (21:43)
[2017-01-06] MEDS ORDERED: FAMOTIDINE 20 MG TABLET PO SCH (22:00)
[2017-01-07] MEDS: IPRATROPIUM/ALBUTEROL 0.5-2.5 MG/3 ML AMPUL NEB SCH ×4 (01:46→20:14)
[2017-01-07] MEDS ORDERED: PIPERACILLIN SODIUM/TAZOBACTAM 3.375 GM in NORMAL SALINE 100 ML IV SCH (06:00)
[2017-01-07 07:36] LABS: HEMATOCRIT 33.6 % (36.0-47.0); HEMOGLOBIN 10.7 g/dL (12.0-15.5); HGB HCT DIFFERENCE -1.5; MEAN CORPUSCULAR HEMOGLOBIN 25.1 pg (27.0-33.4); MEAN CORPUSCULAR HGB CONC 31.8 g/dL (32.0-36.0); MEAN CORPUSCULAR VOLUME 79 fl (80-97); RED BLOOD COUNT 4.26 10^6/uL (3.72-5.28); RED CELL DISTRIBUTION WIDTH 18.3 % (11.5-14.0); WHITE BLOOD COUNT 15.4 10^3/uL (4.0-10.5)
[2017-01-07 07:41] LABS: ANION GAP 11 (5-19); BLOOD UREA NITROGEN 32 mg/dL (7-20); CALCIUM 8.7 mg/dL (8.4-10.2); CARBON DIOXIDE 34 mmol/L (22-30); CHLORIDE 100 mmol/L (98-107); GLUCOSE 94 mg/dL (75-110); POTASSIUM 4.6 mmol/L (3.6-5.0); SODIUM 144.8 mmol/L (137-145)
[2017-01-07] MEDS ORDERED: ONDANSETRON 4 MG TAB.RAPDIS PO PRN (09:30)
[2017-01-07] MEDS ORDERED: ONDANSETRON HCL INJ/PF 4 MG/2 ML SDV IV PRN (09:30)
[2017-01-07] MEDS ORDERED: PREDNISONE 20 MG TABLET PO SCH (10:00)
[2017-01-07] MEDS ORDERED: FAMOTIDINE 20 MG TABLET PO SCH (10:00)
[2017-01-07] MEDS: FAMOTIDINE 20 MG TABLET PO SCH (10:12)
[2017-01-07] MEDS: METHYLPREDNISOLONE INJ 40 MG/1 ML SDV IV SCH ×2 (10:12→17:27)
--- NOTE | 2017-01-07 11:03 | PDOC PROGRESS REPORT ---
Subjective Progress Note for:: 01/07/17 Subjective:: She reports that her breathing is somewhat worse today. Physical Exam Vital Signs: Temp Pulse Resp BP Pulse Ox 98.5 F 62 14 142/58 H 93 01/07/17 07:45 01/07/17 07:56 01/07/17 07:56 01/07/17 07:45 01/07/17 07:56 Intake & Output 01/06/17 01/07/17 01/08/17 06:59 06:59 06:59 Intake Total 591 330 Balance 591 330 Weight 58.6 kg General appearance: PRESENT: no acute distress Eye exam: PRESENT: conjunctiva pink. ABSENT: scleral icterus Mouth exam: PRESENT: moist, tongue midline Neck exam: ABSENT: JVD Respiratory exam: PRESENT: wheezes - Bilateral expiratory wheezes. ABSENT: rales, rhonchi Cardiovascular exam: PRESENT: RRR. ABSENT: diastolic murmur, rubs, systolic murmur GI/Abdominal exam: PRESENT: normal bowel sounds, soft. ABSENT: distended, guarding, mass, organolmegaly, rebound, tenderness Extremities exam: ABSENT: calf tenderness, clubbing, pedal edema Neurological exam: PRESENT: alert, awake, oriented to person, oriented to place , oriented to time, oriented to situation, CN II-XII grossly intact. ABSENT: motor sensory deficit Psychiatric exam: PRESENT: appropriate affect Skin exam: PRESENT: dry, intact, warm. ABSENT: cyanosis, rash Results Laboratory Results: 01/07/17 05:56 01/07/17 05:56 01/07/17 01/07/17 05:56 05:56 WBC 15.4 H RBC 4.26 Hgb 10.7 L Hct 33.6 L MCV 79 L MCH 25.1 L MCHC 31.8 L RDW 18.3 H Plt Count 543 H Sodium 144.8 Potassium 4.6 Chloride 100 Carbon Dioxide 34 H Anion Gap 11 BUN 32 H Creatinine 1.20 Est GFR ( Amer) 51 L Est GFR (Non-Af Amer) 42 L Glucose 94 Calcium 8.7 Impressions: Chest X-Ray 01/06/17 15:16 IMPRESSION: Left lower lobe pneumonia. Assessment & Plan - Diagnosis (1) Pneumonia Qualifiers: Pneumonia type: due to unspecified organism Laterality: left Lung location: lower lobe of lung Qualified Code(s): J18.1 - Lobar pneumonia, unspecified organism Is this a current diagnosis for this admission?: Yes Plan: The patient has pneumonia. She is a resident at an assisted living facility. Will continue with Zosyn and vancomycin. The patient also has a history of COPD and is wheezing significantly today. We will add on IV Solu-Medrol continue nebulizers. Because of this we will change from an observation to an inpatient. She also has a history of congestive heart failure but does not have any evidence for volume overload at this time. (2) COPD (chronic obstructive pulmonary disease) Is this a current diagnosis for this admission?: Yes Plan: Continue with nebulizers And we will start IV steroids today. (3) Chronic combined systolic (congestive) and diastolic (congestive) heart failure Is this a current diagnosis for this admission?: Yes Plan: Patient appears to be euvolemic. (4) DMII (diabetes mellitus, type 2) Qualifiers: Is this a current diagnosis for this admission?: Yes Plan: Continue with Lantus and sliding scale insulin. (5) Essential (primary) hypertension Is this a current diagnosis for this admission?: Yes (6) Paroxysmal a-fib Is this a current diagnosis for this admission?: Yes Plan: Patient currently rate controlled. She is on Xarelto for anticoagulation. (7) DVT prophylaxis Is this a current diagnosis for this admission?: Yes Plan: She already is on Xarelto for her atrial fibrillation. - Time Time Spent with patient: 25-34 minutes - Inpatient Certification Medical Necessity: Need for IV Antibiotics
[2017-01-07] MEDS: PIPERACILLIN SODIUM/TAZOBACTAM 3.375 GM in NORMAL SALINE 100 ML IV SCH ×2 (12:05→17:27)
[2017-01-07] MEDS: INSULIN GLARGINE,HUM.REC.ANLOG 300 UNIT/3 ML INSULN.PEN SUBCUT SCH (12:13)
[2017-01-07] MEDS: RIVAROXABAN 15 MG TABLET PO SCH (17:27)
[2017-01-07] MEDS ORDERED: VANCOMYCIN HCL 500 MG in DEXTROSE 5%-WATER 100 ML IV SCH (18:00)
[2017-01-08] MEDS: INSULIN LISPRO 100 UNIT/ML 3 ML VIAL SUBCUT PRN ×4 (00:56→17:16)
[2017-01-08] MEDS: PIPERACILLIN SODIUM/TAZOBACTAM 3.375 GM in NORMAL SALINE 100 ML IV SCH ×2 (01:35→06:39)
[2017-01-08] MEDS: METHYLPREDNISOLONE INJ 40 MG/1 ML SDV IV SCH ×2 (01:38→10:47)
[2017-01-08] MEDS: IPRATROPIUM/ALBUTEROL 0.5-2.5 MG/3 ML AMPUL NEB SCH ×4 (02:20→19:47)
[2017-01-08 05:36] LABS: HEMOGLOBIN 10.9 g/dL (12.0-15.5); HGB HCT DIFFERENCE -1.3; MEAN CORPUSCULAR HEMOGLOBIN 25.1 pg (27.0-33.4); MEAN CORPUSCULAR VOLUME 79 fl (80-97); RED BLOOD COUNT 4.34 10^6/uL (3.72-5.28); RED CELL DISTRIBUTION WIDTH 18.4 % (11.5-14.0)
[2017-01-08 05:51] LABS: BASOPHILS % (MANUAL) 0 % (0-2); EOSINOPHILS % (MANUAL) 0 % (0-6); LYMPHOCYTES % (MANUAL) 6 % (13-45); TOTAL CELLS COUNTED 100
[2017-01-08 05:52] LABS: HYPOCHROMASIA SLIGHT; TOXIC GRANULATION SLIGHT
[2017-01-08 05:53] LABS: ANISOCYTOSIS 1+; BURR CELLS SLIGHT; MICROCYTOSIS SLIGHT; OVALOCYTES SLIGHT; POIKILOCYTOSIS SLIGHT; ROULEAUX SLIGHT
[2017-01-08 06:02] LABS: ANION GAP 14 (5-19); BLOOD UREA NITROGEN 29 mg/dL (7-20); CALCIUM 8.9 mg/dL (8.4-10.2); CARBON DIOXIDE 31 mmol/L (22-30); CHLORIDE 98 mmol/L (98-107); CREATININE RESULT 1.09 mg/dL (0.52-1.25); GLUCOSE 192 mg/dL (75-110); POTASSIUM 4.8 mmol/L (3.6-5.0)
[2017-01-08] MEDS: INSULIN GLARGINE,HUM.REC.ANLOG 300 UNIT/3 ML INSULN.PEN SUBCUT SCH (06:43)
[2017-01-08] MEDS: FAMOTIDINE 20 MG TABLET PO SCH (10:58)
--- NOTE | 2017-01-08 12:04 | PDOC PROGRESS REPORT ---
Subjective Progress Note for:: 01/08/17 Subjective:: This is a follow-up visit for pneumonia and COPD exacerbation. The patient states that she is feeling much better. Her daughter is with her in the room and is concerned about her home medications being restarted. There have been no acute events overnight other than the patient has lost her IV site. Physical Exam Vital Signs: Temp Pulse Resp BP Pulse Ox 98.4 F 83 22 H 152/68 H 94 01/08/17 07:31 01/08/17 07:53 01/08/17 07:53 01/08/17 07:31 01/08/17 07:53 Intake & Output 01/07/17 01/08/17 01/09/17 06:59 06:59 06:59 Intake Total 1553 Output Total 1400 Balance 153 GENERAL: This is a well-developed well-nourished appearing elderly white female resting in her recliner currently in no acute distress. HEART: Regular rate and rhythm. No murmurs, rubs or gallops. LUNGS: Clear to auscultation bilaterally with equal rise and fall of the chest. No wheezes rales or rhonchi. ABDOMEN: Soft, nontender, nondistended with normoactive bowel sounds EXTREMETIES: No clubbing, cyanosis. Trace edema. 2+ peripheral pulses bilaterally. NEURO: Awake, alert and oriented 3. Cranial nerves II through XII are grossly intact. Results Laboratory Results: 01/08/17 04:47 01/08/17 04:47 01/08/17 01/08/17 04:47 04:47 WBC 18.0 H RBC 4.34 Hgb 10.9 L Hct 34.0 L MCV 79 L MCH 25.1 L MCHC 32.0 RDW 18.4 H Plt Count 571 H Seg Neutrophils % Not Reportable Lymphocytes % Not Reportable Monocytes % Not Reportable Eosinophils % Not Reportable Basophils % Not Reportable Absolute Neutrophils Not Reportable Absolute Lymphocytes Not Reportable Absolute Monocytes Not Reportable Absolute Eosinophils Not Reportable Absolute Basophils Not Reportable Sodium 143.0 Potassium 4.8 Chloride 98 Carbon Dioxide 31 H Anion Gap 14 BUN 29 H Creatinine 1.09 Est GFR ( Amer) 57 L Est GFR (Non-Af Amer) 47 L Glucose 192 H Calcium 8.9 Impressions: Chest X-Ray 01/06/17 15:16 IMPRESSION: Left lower lobe pneumonia. Assessment & Plan - Diagnosis (1) Acute on chronic respiratory failure with hypoxemia Plan: Patient is feeling much better and is improved in comparison to previous notes. She is on chronic oxygen at her assisted living facility and has a portable oxygen tank here. She no longer has any wheezes. We will go ahead and discontinue her IV steroids and IV antibiotics and change her to p.o. (2) Pneumonia Qualifiers: Pneumonia type: due to unspecified organism Laterality: left Lung location: lower lobe of lung Qualified Code(s): J18.1 - Lobar pneumonia, unspecified organism Is this a current diagnosis for this admission?: Yes Plan: Change to oral antibiotics. The steroid treatment for COPD should also help. (3) COPD with acute exacerbation Plan: Change to oral steroids and continue oxygen. Patient will need humidified oxygen and saline spray, as she complains of a dry nose. Resume Advair and Spiriva. Continue AA nebs. (4) Chronic combined systolic (congestive) and diastolic (congestive) heart failure Is this a current diagnosis for this admission?: Yes Plan: Patient is slightly edematous. She appears largely euvolemic. Resume torsemide , metoprolol and lisinopril. (5) DMII (diabetes mellitus, type 2) Qualifiers: Is this a current diagnosis for this admission?: Yes Plan: Continue Lantus as well as sliding scale insulin. Hold Januvia until discharge. (6) Essential (primary) hypertension Is this a current diagnosis for this admission?: Yes (7) Hypertension Plan: Resume metoprolol, Norvasc, and lisinopril. (8) Anemia Plan: Stable continue to monitor. - Time Time Spent with patient: 15-24 minutes Within: within 24 hours - Inpatient Certification Medical Necessity: Need Close Monitoring Due to Risk of Patient Decompensation
[2017-01-08] MEDS ORDERED: METOPROLOL SUCCINATE 50 MG TAB.SR.24H PO ONE (12:30)
[2017-01-08] MEDS ORDERED: TORSEMIDE 20 MG TABLET PO ONE (12:30)
[2017-01-08] MEDS ORDERED: AMIODARONE HCL 200 MG TABLET PO ONE (12:30)
[2017-01-08] MEDS ORDERED: DOXYCYCLINE HYCLATE 100 MG TABLET PO ONE (13:00)
[2017-01-08] MEDS: RIVAROXABAN 15 MG TABLET PO SCH (17:16)
[2017-01-08] MEDS ORDERED: RIVAROXABAN 15 MG TABLET PO SCH (18:00)
[2017-01-08] MEDS: LINEZOLID 600 MG TABLET PO SCH (21:28)
[2017-01-08] MEDS: FLUTICASONE/SALMETEROL DISKUS 250-50 MCG/DOSE IH SCH (21:28)
[2017-01-08] MEDS: DOXYCYCLINE HYCLATE 100 MG TABLET PO SCH (21:28)
[2017-01-09] MEDS: IPRATROPIUM/ALBUTEROL 0.5-2.5 MG/3 ML AMPUL NEB SCH ×4 (01:45→20:31)
[2017-01-09] MEDS: INSULIN GLARGINE,HUM.REC.ANLOG 300 UNIT/3 ML INSULN.PEN SUBCUT SCH (05:52)
[2017-01-09] MEDS: FLUTICASONE/SALMETEROL DISKUS 250-50 MCG/DOSE IH SCH ×2 (09:29→21:52)
[2017-01-09] MEDS: TIOTROPIUM BROMIDE DPI 5 CAP/KIT (18 MCG/CAP) IH SCH (09:30)
[2017-01-09] MEDS: FLUTICASONE NASAL SPRAY 50 MCG/SPRY 120 SPRAY/16 GM NASL SCH (09:31)
[2017-01-09] MEDS: ASCORBIC ACID 500 MG TABLET PO SCH (09:32)
[2017-01-09] MEDS: FAMOTIDINE 20 MG TABLET PO SCH (09:32)
[2017-01-09] MEDS: PREDNISONE 20 MG TABLET PO SCH (09:33)
[2017-01-09] MEDS: DOXYCYCLINE HYCLATE 100 MG TABLET PO SCH ×2 (09:33→21:52)
[2017-01-09] MEDS: METOPROLOL SUCCINATE 50 MG TAB.SR.24H PO SCH (09:34)
[2017-01-09] MEDS: LISINOPRIL 10 MG TABLET PO SCH (09:34)
[2017-01-09] MEDS: AMIODARONE HCL 200 MG TABLET PO SCH (09:35)
[2017-01-09] MEDS: AMLODIPINE BESYLATE 5 MG TABLET PO SCH (09:36)
[2017-01-09] MEDS: LINEZOLID 600 MG TABLET PO SCH ×2 (09:36→21:52)
[2017-01-09] MEDS ORDERED: TORSEMIDE 20 MG TABLET PO SCH (10:00)
[2017-01-09] MEDS ORDERED: (PENDING PHARMACY ID) (Cetirizine Hcl [Zyrtec 10 Mg Chewable Tab] 10 MG) PO SCH (10:00)
--- NOTE | 2017-01-09 17:26 | PDOC PROGRESS REPORT ---
Subjective Progress Note for:: 01/09/17 Subjective:: This is a follow-up visit for pneumonia and COPD exacerbation. The patient states that she vomited today. She is unsure why. She did tolerate eating fruit and tolerated a lunch and ate a pork chop and a sweet potato. She had no issues keeping this food down. Is feeling much better. Her daughter is with her in the room and is concerned about her home medications being restarted and the idea that I could not explain why they had been restarted in the first place. And because I did not come back for second round yesterday. The patient is also accompanied by her son-in-law and the daughters brother. The patient's daughter is concerned that I have not repeated a chest x-ray or labs today. She is concerned that her mother could be in heart failure. I have explained that the labs were not repeated and that her white count was elevated likely because of the steroids that she had been started on. I also explained that it is not medically indicated at this time to have a repeat chest x-ray. I explained that the initial chest x-ray showed left lower lobe pneumonia and that clinically her mother looked better. I explained that she has no wheezes or coarse breath sounds at this point. Her daughter is convinced that she is in florid heart failure she is concerned that I am not treating her the same primary care doctor usually treats her. I have explained that I disagree with her diagnosis at this point. Physical Exam Vital Signs: Temp Pulse Resp BP Pulse Ox 98.3 F 70 14 163/71 H 93 01/09/17 07:12 01/09/17 13:23 01/09/17 13:23 01/09/17 07:12 01/09/17 07:36 Intake & Output 01/08/17 01/09/17 01/10/17 06:59 06:59 06:59 Intake Total 1553 1076 330 Output Total 1400 2350 600 Balance 153 1274 -270 Weight 58 kg GENERAL: This is a well-developed well-nourished appearing elderly white female resting in her recliner currently in no acute distress. HEART: Regular rate and rhythm. No murmurs, rubs or gallops. He does not seem terribly out of breath to me when I watched her ambulate to the bathroom today. LUNGS: Clear to auscultation bilaterally with equal rise and fall of the chest. No wheezes rales or rhonchi. ABDOMEN: Soft, nontender, nondistended with normoactive bowel sounds EXTREMETIES: No clubbing, cyanosis. Trace edema. 2+ peripheral pulses bilaterally. NEURO: Awake, alert and oriented 3. The patient ambulates slowly with a walker. She definitely needs a pressure tester operator when she does this. Cranial nerves II through XII are grossly intact. Results Laboratory Results: 01/08/17 04:47 01/08/17 04:47 Impressions: Chest X-Ray 01/06/17 15:16 IMPRESSION: Left lower lobe pneumonia. Assessment & Plan - Diagnosis (1) Acute on chronic respiratory failure with hypoxemia Plan: Patient is feeling much better and is improved in comparison to previous notes. She is on chronic oxygen at her assisted living facility and has a portable oxygen tank here. She no longer has any wheezes. Continue oral steroids and oral antibiotics. (2) Pneumonia Qualifiers: Pneumonia type: due to unspecified organism Laterality: left Lung location: lower lobe of lung Qualified Code(s): J18.1 - Lobar pneumonia, unspecified organism Is this a current diagnosis for this admission?: Yes Plan: Likely this is healthcare associated pneumonia with gram-negative organisms. Patient lives in assisted living. Continue to oral antibiotics. The steroid treatment for COPD should also help. (3) COPD with acute exacerbation Plan: Change to oral steroids and continue oxygen. Patient will need humidified oxygen and saline spray, as she complains of a dry nose. Resume Advair and Spiriva. Continue AA nebs. (4) Chronic combined systolic (congestive) and diastolic (congestive) heart failure Is this a current diagnosis for this admission?: Yes Plan: Patient is slightly edematous. She appears largely euvolemic. Resume torsemide , metoprolol and lisinopril. (5) DMII (diabetes mellitus, type 2) Qualifiers: Is this a current diagnosis for this admission?: Yes Plan: Continue Lantus as well as sliding scale insulin. Hold Januvia until discharge. (6) Essential (primary) hypertension Is this a current diagnosis for this admission?: Yes (7) Hypertension Plan: Resume metoprolol, Norvasc, and lisinopril. - Time Time Spent with patient: 15-24 minutes
[2017-01-09] MEDS: RIVAROXABAN 15 MG TABLET PO SCH (17:55)
[2017-01-09 17:56] LABS: CREATININE RESULT 1.11 mg/dL (0.52-1.25)
[2017-01-09 18:04] LABS: TROUGH DRAW TIME 1720
[2017-01-09] MEDS: INSULIN LISPRO 100 UNIT/ML 3 ML VIAL SUBCUT PRN ×2 (18:41→21:52)
[2017-01-10] MEDS: IPRATROPIUM/ALBUTEROL 0.5-2.5 MG/3 ML AMPUL NEB SCH ×2 (02:32→09:07)
[2017-01-10 05:41] LABS: HEMATOCRIT 33.6 % (36.0-47.0); HEMOGLOBIN 10.6 g/dL (12.0-15.5); HGB HCT DIFFERENCE -1.8; MEAN CORPUSCULAR HEMOGLOBIN 24.6 pg (27.0-33.4); MEAN CORPUSCULAR HGB CONC 31.6 g/dL (32.0-36.0); MEAN CORPUSCULAR VOLUME 78 fl (80-97); RED BLOOD COUNT 4.31 10^6/uL (3.72-5.28); RED CELL DISTRIBUTION WIDTH 18.5 % (11.5-14.0); WHITE BLOOD COUNT 17.3 10^3/uL (4.0-10.5)
[2017-01-10] MEDS: INSULIN GLARGINE,HUM.REC.ANLOG 300 UNIT/3 ML INSULN.PEN SUBCUT SCH (05:41)
[2017-01-10 05:58] LABS: ANION GAP 10 (5-19); BLOOD UREA NITROGEN 38 mg/dL (7-20); CALCIUM 8.9 mg/dL (8.4-10.2); CARBON DIOXIDE 34 mmol/L (22-30); CHLORIDE 96 mmol/L (98-107); CREATININE RESULT 1.12 mg/dL (0.52-1.25); GLUCOSE 132 mg/dL (75-110); MAGNESIUM 1.9 mg/dL (1.6-2.3); POTASSIUM 4.5 mmol/L (3.6-5.0); SODIUM 140.2 mmol/L (137-145)
[2017-01-10 06:32] LABS: BASOPHILS % (MANUAL) 0 % (0-2); EOSINOPHILS % (MANUAL) 0 % (0-6); LYMPHOCYTES % (MANUAL) 5 % (13-45); TOTAL CELLS COUNTED 100
[2017-01-10 06:33] LABS: ANISOCYTOSIS 2+; HYPOCHROMASIA SLIGHT; MICROCYTOSIS SLIGHT; OVALOCYTES SLIGHT; POIKILOCYTOSIS SLIGHT; POLYCHROMASIA SLIGHT; SCHISTOCYTES SLIGHT; TEAR DROP CELLS SLIGHT; TOXIC GRANULATION SLIGHT; TOXIC VACUOLATION PRESENT
[2017-01-10] MEDS ORDERED: FUROSEMIDE INJ/PF 20 MG/2 ML SDV IV ONE (08:36)
[2017-01-10] MEDS ORDERED: CETIRIZINE 10 MG TABLET PO SCH (10:00)
[2017-01-10] MEDS ORDERED: TORSEMIDE 20 MG TABLET PO SCH (10:00)
[2017-01-10] MEDS: FLUTICASONE NASAL SPRAY 50 MCG/SPRY 120 SPRAY/16 GM NASL SCH (10:11)
[2017-01-10] MEDS: FLUTICASONE/SALMETEROL DISKUS 250-50 MCG/DOSE IH SCH (10:12)
[2017-01-10] MEDS: TIOTROPIUM BROMIDE DPI 5 CAP/KIT (18 MCG/CAP) IH SCH (10:12)
[2017-01-10] MEDS: ASCORBIC ACID 500 MG TABLET PO SCH (10:13)
[2017-01-10] MEDS: AMLODIPINE BESYLATE 5 MG TABLET PO SCH (10:13)
[2017-01-10] MEDS: LINEZOLID 600 MG TABLET PO SCH (10:14)
[2017-01-10] MEDS: PREDNISONE 20 MG TABLET PO SCH (10:14)
[2017-01-10] MEDS: LISINOPRIL 10 MG TABLET PO SCH (10:14)
[2017-01-10] MEDS: DOXYCYCLINE HYCLATE 100 MG TABLET PO SCH (10:14)
[2017-01-10] MEDS: METOPROLOL SUCCINATE 50 MG TAB.SR.24H PO SCH (10:16)
[2017-01-10] MEDS: AMIODARONE HCL 200 MG TABLET PO SCH (10:16)
[2017-01-10] MEDS: FAMOTIDINE 20 MG TABLET PO SCH (10:16)
[2017-01-10 10:37] VITALS: BP 147/67
--- NOTE | 2017-01-10 11:40 | PDOC DISCHARGE SUMMARY ---
General - Admit/Disc Date/PCP Admission Date/Primary Care Provider: 01/07/17 09:33 ANNETTE AARON MD - Discharge Diagnosis (1) Acute on chronic respiratory failure with hypoxemia Summary: This is resolved and the patient is at baseline oxygen requirements. Continue oxygen therapy. Continue outpatient inhalers. (2) Pneumonia Is this a current diagnosis for this admission?: Yes Summary: The patient has been treated as healthcare associated pneumonia. She will take Linezolid and doxycycline for another 8 days. This will give her a total of 10 days. I have already spoken with the insurance company and they have issued a prior authorization for the Linezolid. The authorization number is [id number]. She should follow-up with her PCP within the next 1-2 weeks. (3) COPD with acute exacerbation Summary: The patient was never wheezy from the time that I took over care. However, the admitting physician did hear wheezing and diagnosed COPD. She was placed on Solu-Medrol and is now on a prednisone taper. Continue oxygen therapy prednisone taper and antibiotics. Follow-up with PCP (4) Chronic combined systolic (congestive) and diastolic (congestive) heart failure Is this a current diagnosis for this admission?: Yes Summary: The patient was not felt to be in acute heart failure at the beginning of her hospitalization. Her diuretics were held on admission and subsequently resumed 2 days later. The patient diuresed 1.2 L out for the first day being back on diuretics. She does have an elevated BNP. Looking back it seems as though her BMP is usually elevated at baseline at around 2000. She was given an extra dose of torsemide since she lost her IV access while she was here and could not receive IV diuretics.. When I observed her she did not appear more short of breath than what had been previously described. However her family at the bedside has stated that she seems a little worse to them. At discharge she is instructed to take torsemide twice a day for the next 3 days and follow-up with her primary care physician. (5) DMII (diabetes mellitus, type 2) Is this a current diagnosis for this admission?: Yes Summary: Continue at home medications with insulin and Januvia. (6) Essential (primary) hypertension Is this a current diagnosis for this admission?: Yes Summary: Continue home medications. (7) Hypertension Summary: Continue home medications. (8) Anemia Summary: Stable - Additional Information Resuscitation Status: Do Not Resuscitate Discharge Diet: As Tolerated Discharge Activity: Activity As Tolerated Home Medications: Acetaminophen [Tylenol 325 mg Tablet] 650 mg PO Q4HP PRN 01/07/17 Albuterol Sulfate [Albuterol Sulfate 2.5mg/3 mL] 2.5 mg NEB Q6 01/07/17 Amiodarone HCl [Pacerone 100 mg Tablet] 100 mg PO DAILY 01/07/17 Amlodipine Besylate [Norvasc 5 mg Tablet] 5 mg PO DAILY 01/07/17 Ascorbic Acid [Vitamin C 500 mg Tablet] 500 mg PO DAILY 01/07/17 Cetirizine HCl [Zyrtec 10 mg Chewable Tab] 10 mg PO DAILY 01/07/17 Cholecalciferol (Vitamin D3) [Vitamin D3] 2,000 unit PO DAILY 01/07/17 Fluticasone Propionate [Flonase Nasal [place] 50 Mcg/[place] 16 gm] 1 spray NASL DAILY 01/07/17 Fluticasone/Salmeterol [Advair 250-50 Diskus 14 Dose/Diskus] 1 puff IH Q12 01/07 Insulin Glargine,Hum.rec.anlog [Lantus Solostar] 10 unit SQ QAM 01/07/17 Lisinopril [Prinivil 10 mg Tablet] 10 mg PO DAILY 01/07/17 Metoprolol Succinate [Toprol Xl 50 mg Tab.sr] 50 mg PO DAILY 01/07/17 Pantoprazole Sodium [Protonix] 40 mg PO DAILY 01/07/17 Rivaroxaban [Xarelto] 15 mg PO DAILY 01/07/17 Sitagliptin Phos/Metformin HCl [Janumet Xr 100-1,000 mg Tablet] 1 tab PO DAILY 01/07/17 Tiotropium [place] [Spiriva Handi[place]er 5 Cap/Kit (18 Mcg/Cap)] 1 puff IH DAILY 01/07/17 Torsemide [Demadex 20 mg Tablet] 20 mg PO DAILY 01/07/17 Doxycycline Hyclate [Vibramycin 100 mg Tablet] 100 mg PO Q12 #16 tablet Glucagon,Human Recombinant [Glucagen Inj 1 mg Vial] 1 mg IM PRN PRN vial Linezolid [Zyvox 600 mg Tablet] 600 mg PO Q12 #16 tablet 01/09/17 Prednisone [Deltasone 20 mg Tablet] 40 mg PO ASDIR PRN #15 tablet 01/09/17 History of Present Illness History of Present Illness: FAUSTINO SHARIF is a 89 year old white female with multiple medical problems who presented to the service with shortness of breath secondary to healthcare associated pneumonia and likely COPD exacerbation. Please see the admission physician's H&P as detailed below for further details. Admission Date/PCP: 01/06/17 17:45 ANNETTE AARON MD Patient complains of: Shortness of breath and cough. History of Present Illness: FAUSTINO SHARIF is a 89 year old female who has a history of COPD chronically on 3 L per nasal cannula who presents with a one-day history of cough productive of yellow sputum along with shortness of breath. Patient also relates having some orthopnea and PND. She however denies any worsening lower extremity edema. The patient reports that she has also had some right-sided pleuritic chest pain. Because of this she had a CT angiogram of the lungs which was negative for DVT. She was found to have a left lower lobe pneumonia. The patient does report having some low-grade fevers and chills at home. She has dyspnea on exertion also. She relates that her chest pain is sharp but is not exertion related. Typically when she takes a breath and. The patient reports the pain is 3 out of 10 scale and is absent at this time. The patient has a history of atrial fibrillation but denies any tachycardia or palpitations. Patient denies any recent travel. She is a resident of [facility]. Hospital Course Hospital Course: Patient was admitted to the hospital and treated for pneumonia with Zosyn and vancomycin. These medications were eventually changed to oral Linezolid and doxycycline. Levaquin was avoided because of her use of amiodarone. It was felt that her pneumonia was likely healthcare associated pneumonia. Prior authorization was needed for outpatient use of Linezolid and this was accomplished as noted above. The patient was also noted to be wheezing while here in the hospital and was started on Solu-Medrol. By the time I assumed care of the patient she was no longer wheezing and she did not have any crackles on her lungs noted during hospitalization. She was resumed on her usual doses of torsemide as an outpatient. BMPs as well as basic labs were checked while she was here. It is noted that the patient has an elevated white count. However, she has been receiving IV steroids up until the point that she lost her IV and then converted to p.o. steroids. This can obscure interpretation of the patient's white blood cell count and response to therapy. Repeat white blood cell count upon discharge had declined. I expect her white count will continue to go down; however, she will need to follow-up with her primary care physician within 1-2 weeks. This was expressed to the patient' s family. The patient's blood sugars ranged from 110-276. She was maintained on her usual doses of insulin, sliding scale insulin while she was here. Januvia was not restarted while in the hospital. It was explained to her daughter Y. This is because of metformin and potential for interactions with any potential imaging and contrast that could have been needed during hospitalization. Blood sugars were felt to be reasonably controlled and she only had the one high of 276 once. As far as her heart failure was concerned, the patient was felt to be euvolemic while she was here. Torsemide was restarted. She was given an extra dose prior to discharge. Physical Exam Vital Signs: Temp Pulse Resp BP Pulse Ox 97.6 F 74 16 147/67 H 93 01/10/17 10:28 01/10/17 10:28 01/10/17 10:28 01/10/17 10:28 01/10/17 10:28 Intake & Output 01/09/17 01/10/17 01/11/17 06:59 06:59 06:59 Intake Total 1076 1490 Output Total 2350 1300 Balance -1274 190 Weight 58 kg 82.7 kg GENERAL: This is a well-developed well-nourished appearing elderly white female resting in her recliner currently in no acute distress. HEART: Regular rate and rhythm. No murmurs, rubs or gallops. LUNGS: Clear to auscultation bilaterally with equal rise and fall of the chest. No wheezes rales or rhonchi. ABDOMEN: Soft, nontender, nondistended with normoactive bowel sounds EXTREMETIES: No clubbing, cyanosis. Trace edema. 2+ peripheral pulses bilaterally. NEURO: Awake, alert. Patient is forgetful at times. Results Laboratory Results: 01/10/17 04:55 01/10/17 04:55 01/09/17 01/10/17 01/10/17 17:20 04:55 04:55 WBC 17.3 H RBC 4.31 Hgb 10.6 L Hct 33.6 L MCV 78 L MCH 24.6 L MCHC 31.6 L RDW 18.5 H Plt Count 599 H Seg Neutrophils % Not Reportable Lymphocytes % Not Reportable Monocytes % Not Reportable Eosinophils % Not Reportable Basophils % Not Reportable Absolute Neutrophils Not Reportable Absolute Lymphocytes Not Reportable Absolute Monocytes Not Reportable Absolute Eosinophils Not Reportable Absolute Basophils Not Reportable Sodium 140.2 Potassium 4.5 Chloride 96 L Carbon Dioxide 34 H Anion Gap 10 BUN 38 H Creatinine 1.11 1.12 Est GFR ( Amer) 56 L 55 L Est GFR (Non-Af Amer) 46 L 46 L Glucose 132 H Calcium 8.9 Magnesium 1.9 01/09/17 17:20 NT-Pro-B Natriuret Pep 7570 H Impressions: Chest X-Ray 01/06/17 15:16 IMPRESSION: Left lower lobe pneumonia. Qualifiers PATEINT BEING DISCHARGED WITH ANY OF THE FOLLOWING DIAGNOSIS?: No Plan Time Spent: Greater than 30 Minutes
== END 2017-01-10 12:46 | DRG 190 ==
LOC: ER 14:40 → INTOOBSV 17:45 → EH 17:45 → 4W 19:19 → OBSVTOIN 01-07 09:33
PROVIDERS: ADMIT Internal Medicine; ATTEND Internal Medicine
DX: J44.1 Chronic obstructive pulmonary disease with (acute) exacerbation (principal); J96.21 Acute and chronic respiratory failure with hypoxia; J18.1 Lobar pneumonia, unspecified organism; I50.42 Chronic combined systolic (congestive) and diastolic (congestive) heart failure; J44.0 Chronic obstructive pulmonary disease with (acute) lower respiratory infection; E11.9 Type 2 diabetes mellitus without complications; I11.0 Hypertensive heart disease with heart failure; D64.9 Anemia, unspecified; E78.5 Hyperlipidemia, unspecified; G47.30 Sleep apnea, unspecified; Z66 Do not resuscitate; K21.9 Gastro-esophageal reflux disease without esophagitis; I48.0 Paroxysmal atrial fibrillation; M19.90 Unspecified osteoarthritis, unspecified site; F03.90 Unspecified dementia, unspecified severity, without behavioral disturbance, psychotic disturbance, mood disturbance, and anxiety; F41.9 Anxiety disorder, unspecified; Z79.4 Long term (current) use of insulin; Z99.81 Dependence on supplemental oxygen; Z96.653 Presence of artificial knee joint, bilateral; Z88.3 Allergy status to other anti-infective agents; Z87.891 Personal history of nicotine dependence; Z82.49 Family history of ischemic heart disease and other diseases of the circulatory system; Z80.9 Family history of malignant neoplasm, unspecified; Z83.6 Family history of other diseases of the respiratory system
CPT/HCPCS: 36415; 71010; 80048; 80053; 80202; 81001; 82550; 82565; 82803; 82962; 83605; 83690; 83735; 83880; 84484; 85025; 85027; 87040; 93005; 93010; 94640; 96365; 99285; G0378; J1815; J2543; J2920; J3370; J3490; J7512; J7620

== ENCOUNTER 2017-01-18 10:27 | Emergency (ER) | payer MEDICARE ==
[2017-01-18 10:41] VITALS: BP 125/51
[2017-01-18] MEDS ORDERED: LIDOCAINE 2% VISCOUS SOLN 20 ML UDCUP PO ONE (10:43)
--- NOTE | 2017-01-18 10:44 | ER Document Report ---
HPI - HPI Patient complains to provider of: Mouth pain Pain Level: 5 Context: Patient is an 89-year-old female who presents emergency department with a chief complaint of mouth redness and pain. Her daughter at the bedside states that she was discharged a week ago and recently completed her antibiotics doxycycline and since then has been having mouth discomfort. She states that she has had this previously and has responded well to oral nystatin. Otherwise she denies any difficulty swallowing, difficulty breathing, fevers, chills, altered mental status, confusion, nausea, vomiting or chest pain. - REPRODUCTIVE Reproductive: DENIES: : Past Medical History - Social History Smoking Status: Smoker,Current Status Unk Family History: Hyperlipidemia, Hypertension - Past Medical History Cardiac Medical History: Reports: Hx Atrial Fibrillation, Hx Congestive Heart Failure - Both systolic and diastolic congestive heart failure, Hx Hypercholesterolemia, Hx Hypertension Pulmonary Medical History: Reports: Hx Asthma, Hx Bronchitis, Hx COPD, Hx Pneumonia, Hx Sleep Apnea Endocrine Medical History: Reports: Hx Diabetes Mellitus Type 2 Renal/ Medical History: Denies: Hx Peritoneal Dialysis GI Medical History: Reports: Hx Gastroesophageal Reflux Disease, Hx Hiatal Hernia Musculoskeltal Medical History: Reports Hx Arthritis Psychiatric Medical History: Reports: Hx Anxiety, Hx Dementia Denies: Hx Depression Traumatic Medical History: Reports: Hx Fractures Past Surgical History: Reports: Hx Appendectomy, Hx Herniorrhaphy, Hx Hysterectomy, Hx Orthopedic Surgery - Bilateral total knee replacements - Immunizations Hx Diphtheria, Pertussis, Tetanus Vaccination: No Hx Pneumococcal Vaccination: 02/25/09 Vertical Provider Document - CONSTITUTIONAL Agree With Documented VS: Yes Notes: PHYSICAL EXAM GENERAL: Alert, interacts well. HEAD: Normocephalic, atraumatic. EYES: Pupils equal, round, and reactive to light. Extraocular movements intact. ENT: Oral mucosa moist, tongue midline. Erythema with white plaques noted on the posterior pharynx consistent with thrush NECK: Full range of motion. Supple. Trachea midline. LUNGS: Clear to auscultation bilaterally, no wheezes, rales, or rhonchi. No respiratory distress. HEART: Regular rate and rhythm. No murmurs, gallops, or rubs. ABDOMEN: Soft, nondistended, nontender. No guarding, rebound, or rigidity.. Bowel sounds present in all 4 quadrants. EXTREMITIES: Moves all 4 extremities spontaneously. No edema, radial and dorsalis pedis pulses 2/4 bilaterally. No cyanosis. NEUROLOGICAL: Alert and oriented x4. Normal speech. PSYCH: Normal affect, normal mood. SKIN: Warm, dry, normal turgor. No rashes or lesions noted. - INFECTION CONTROL TRAVEL OUTSIDE OF THE [place] IN LAST 30 DAYS: No - RESPIRATORY O2 Sat by Pulse Oximetry: 96 Course - Re-evaluation Re-evalutation: 01/18/17 10:45 Patient is an 89-year-old female who is hemodynamically stable, no acute distress and afebrile. Presentation is consistent with thrush after completion of recent antibiotics. Patient states her symptoms improved after viscous lidocaine swish and swallow with the bedside and will fill a prescription for nystatin. Discussed follow-up with primary care next week and otherwise stable for discharge home. Family agrees with plan. - Vital Signs Vital signs: Temp Pulse Resp BP Pulse Ox 98.1 F 64 22 H 125/51 L 96 01/18/17 10:36 01/18/17 10:36 01/18/17 10:36 01/18/17 10:36 01/18/17 10:36 Discharge - Discharge Clinical Impression: Thrush of mouth and esophagus Condition: Good Disposition: HOME, SELF-CARE Instructions: Oral Thrush ([facility]) Additional Instructions: Please follow-up with your primary care provider on Saturday. Prescriptions: Nystatin 5 ml PO Q6H 10 Days #120 oral.susp Referrals: ANNETTE SOLIS MD [Primary Care Provider] - Follow up as needed
== END 2017-01-18 11:32 | disposition home or self-care (01) ==
LOC: ER 10:27
DX: B37.0 Candidal stomatitis (principal); K08.89 Other specified disorders of teeth and supporting structures; F17.200 Nicotine dependence, unspecified, uncomplicated
CPT/HCPCS: 99282; J3490